=== PATIENT | male | born 1935 | race Caucasian/White ===

== ENCOUNTER → 2024-01-02 13:18 | Outpatient (REF) | payer OTHER, SELFPAY | LOC: HWRAD 13:18 | PROVIDERS: ATTENDING PHYSICIAN Nurse Practitioner Family; FAMILY PHYSICIAN Internal Medicine | DX: R06.02 Shortness of breath (principal); J90 Pleural effusion, not elsewhere classified | CPT/HCPCS: 71046 ==

== ENCOUNTER 2024-06-28 19:30 | Inpatient (IN) | payer OTHER, SELFPAY ==
[2024-06-28] VITALS (9 sets, daily range): BP systolic 120–149; BP diastolic 64–97; BMI 23.2
--- NOTE | 2024-06-28 17:06 | ED.GENMED ---
History of Present Illness
General
Chief Complaint: Breathing Problem
Source: patient
Exam Limitations: none
Time Seen by Provider: 06/28/24 16:52
Nursing documentation reviewed up to this point in time: agreed with
History of Present Illness
History of Present Illness:
Patient presents to ED from [facility] secondary to increased work of breathing, especially during exertion over the past 2 weeks. Patient was evaluated by physician at his [facility]. Outpatient CT chest 2 weeks ago had revealed increased
fluid in his right lung. His cost control supervisor, Dr. Gutierrez, office is aware of the CT findings. However, he has not given any instructions on any future recommendations. Denies chest pain. Denies coughing. Denies fever or chills. Denies leg pain
or swelling. Denies recent change in medications or diet. Denies previous history of similar symptoms. Patient does report weight loss recently, with decreased appetite.
Past History
Past History
ED Past Medical History: Arrthythmia, HTN, NIDDM and Other (ckd)
ED Past Surgical History: Other (hernia)
Patient has exhibited threatening behavior?: No
PSI?: No
Social History
Tobacco: Non-smoker
Alcohol: None
Drug: None
Living: assisted living
Review of Systems
Review of Systems
Allergies reviewed?: Yes
All Other Systems: ROS reviewed and negative except as documented in HPI and ROS
Constitutional: Reports no symptoms; Denies fever
Respiratory: Reports trouble breathing; Denies cough
Cardiac: Reports no symptoms
ABD/GI: Reports no symptoms
Musculoskeletal: Reports no symptoms
Skin: Reports no symptoms
Neurological: Reports no symptoms
Phy Exam
Physical Exam
Physical Exam:
Physical Exam
General: no apparent distress, not acutely ill. afebrile
Head: nc/at. eomi
Neck: supple. no jvd.
Heart: s1/s2 regular rate and rhythm.
Lungs: no acute respiratory distress. diminished breath sound noted over right lower base
Abdomen: normal bowel sounds. not tender.
Neuro: alert and oriented x 3. no focal neurological deficits
Skin: no rash
Psychiatric: well kept. interactive and cooperative
Extremities: LE b/l, nonpitting edema. no calf tenderness.
Scores
Heart Failure Risk
Heart Failure Risk Score: Yes
History of Stroke or TIA: No
History of intubation for respiratory distress: No
Heart rate on ED arrival >/= 110: No
SaO2 <90% on arrival on room air: No
HR >/=110 during 3min walk test (or too ill to perform test): No
ECG has acute ischemic changes: No
Urea >/=12mmol/L (BUN 33.6mg/dL): No
Serum CO2>/=35mmol/L: Yes
Troponin I or T elevated to FL Level (0.4mg/dL): No
NT-proBNP >/=5,000ng/L (5,000pg/ml): Yes
HF Risk Score: 3
Admission Status: HIGH RISK 15.9% Consider SNF treatment or admission to hospital
Course
Orders/Labs/Results
Orders:
Orders
06/28/24 Dinner
Sodium, 2 Gram
At Your Request: Full Participation
06/28/24 16:48
Electrocardiogram (*1) Urgent
Reason for Study: Shortness of Breath
CR Chest - 2 Views Urgent
Comment:
Reason For Exam: sob
06/28/24 16:49
EKG- Treatment ONCE
06/28/24 17:01
Complete Blood Count/With Diff Urgent
Comprehensive Metabolic Panel Urgent
Ferritin Urgent
Comment: ADD ON
Folate Urgent
Comment: ADD ON
Iron Urgent
Comment: ADD ON
Magnesium Urgent
NT-proBNP Urgent
Total Iron Binding Urgent
Comment: ADD ON
Troponin I Urgent
Vitamin B12 Urgent
Comment: ADD
06/28/24 17:07
Add On- LAB Urgent
Comments:: in lab
Tests Added?: BNP
06/28/24 17:57
Furosemide [Lasix] 40 mg IV NOW STA
06/28/24 18:45
CT Abd/pel (oral only)-DH Only Routine
Comment:
Reason For Exam: RUQ abdominal pain, weight loss
Iohexol [Omnipaque] See Protocol PO NOW STA
06/28/24 18:46
Admit/Transfer Patient As Directed
Co-Sign Provider:
Level of Care: Inpatient admission
Assign to:: Telemetry
Physician / Group: Francisco J
Diagnosis: CHF, Pleural Effusion
Reason for Telemetry: Acute Heart Failure
Date to Stop Telemetry: 07/01/24
Time to Stop Telemetry: 11:00
Reason for Hospitalization: IV diuretics
Expected length of stay greater than two midnights?: Yes
ELOS- Estimated Length of Stay in days: 3
I certify the patient meets the requirements for IP care: Yes
PRN Pain Medication Management As Directed
May give lesser potent ordered pain med per pt: Yes
preference::
Protocol:: Medication orders for pain may be administered in a
manner that supports deferring to patient preference
when the pt is:
- Requesting an ordered lesser potent pain medication.
Least to most potent pain medications are defined
as: acetaminophen < NSAID < tramadol < opioids
(morphine, oxycodone, hydromorphone).
- Requesting a lesser dose of the same medication IF
ORDERED.
- Requesting a less intrusive route of administration
if both routes are prescribed by the provider (PO <
IV).
06/28/24 18:48
Code Status As Directed
Resuscitation Status: Do not resuscitate
Reached after discussion with pt or family/Healthcare POA: Yes
DNR Bracelet Application ONCE
06/28/24 20:36
Dextrose 50%-Water [Dextrose 50% Syringe] 12.5 grams IV [id number] PRN
Glucagon [GlucaGen] 1 mg IM PRN PRN
Temazepam [Restoril] 15 mg PO HS PRN
06/28/24 20:36
Echo 2D MMode Color/Doppler Routine
Reason for Study: heart failure
DIETARY IP CONSULT Routine
Reason for Consult: weight loss
HF DIETARY CONSULT Routine
HF EDUCATOR CONSULT Routine
Comment:
Activity As Directed
Activity Level: Out of Bed-Early Mobility
Bedside Glucose Monitoring As Directed
Frequency: AC&HS
Additional Instructions:: Change to q6h if pt on TPN, tube feeding or not eating
Intake/ Output As Directed
Frequency: Per unit guidelines
Patient Education As Directed
Type: CHF folder
Comment: give on admission. Document in Interdisciplinary Education record
Sleep Apnea Assessment by RN As Directed
Comment:
Physician Instructions:
Vital Signs As Directed
Frequency: Other
Additional Instructions:: Q12 or per unit guidelines if more frequent.
Weight As Directed
Frequency: Daily
Type of Scale: Standing Scale
Comment: Daily morning weight. If unable to stand, use balanced bed scale.
Weight As Directed
Frequency: Once
Type of Scale: Standing Scale
Comment: Upon Admission. If unable to stand, use balanced bed scale.
O2 Therapy [RESP] Routine
Titrate/Wean O2 to maintain O2 sat greater than (%): 92
Pulse Ox/cont/shift [RESP] Routine
Quantity: 1
Special Instructions: Daily pulse oximetry at rest. If greater than 92% at rest also obtain pulse oximetry
while ambulating as tolerated.
06/28/24 22:00
Apixaban [Eliquis] 2.5 mg PO BID
Buspirone [Buspar] 7.5 mg PO BID
CeFAZolin 2 GRAM [Ancef] 2 grams in 10 ml IV Q12H
06/28/24 22:33
Troponin I Q6H
Comment: at admission & every 6 hours x 2 (3 total), ECG to be done with each level
06/29/24 02:28
Basic Metabolic Panel IN AM
Complete Blood Count/No Diff IN AM
Glycohemoglobin (HgbA1c) IN AM
Magnesium IN AM
TSH Reflex To Free T4 IN AM
Troponin I Q6H
Comment: at admission & every 6 hours x 2 (3 total), ECG to be done with each level
06/29/24 07:30
Insulin Aspart Corrective Low [Novolog Flexpen-Low Resistance] See Protocol SC AC
06/29/24 08:00
Atorvastatin [Lipitor] 20 mg PO DAILY
Escitalopram Oxalate [Lexapro] 20 mg PO DAILY
Ferrous Sulfate [Feosol] 325 mg PO DAILY
Furosemide [Lasix] 40 mg IV BID AT 0800,1600
Pantoprazole [Protonix] 40 mg PO DAILY
Tamsulosin [Flomax] 0.4 mg PO DAILY
06/30/24 06:00
Basic Metabolic Panel IN AM
06/30/24 08:00
Azithromycin [Zithromax] 500 mg PO MoWeFr@0800
Ethambutol [Myambutol] 1,200 mg PO MoWeFr@0800
07/01/24 06:00
Basic Metabolic Panel IN AM
07/01/24 11:00
DC Protocol for Telemetry ONCE
Abnormal Lab Results
06/28/24
17:01
RBC 3.07 L 10^6/uL
(4.70-6.10)
Hgb 8.8 L g/dL
(13.0-18.0)
Hct 26.5 L %
(39.0-52.0)
RDW 19.9 H %
(11.5-14.5)
MPV 11.8 H fL
(7.4-10.4)
Absolute Lymphs (auto) 0.6 L 10^3/uL
(1.2-3.4)
Neutrophils % 77.7 H %
(42.2-75.2)
Lymphocytes % 10.0 L %
(20.5-51.1)
Carbon Dioxide 32 H mmol/L
(22-30)
BUN 113 H* mg/dl
(9-20)
Creatinine 2.7 H mg/dL
(0.7-1.3)
Magnesium 2.4 H mg/dl
(1.6-2.3)
TIBC 230 L ug/dl
(261-462)
Troponin I 0.077 H* ng/ml
Total Protein 5.9 L g/dl
(6.3-8.2)
Vitamin B12 > 1000 H pg/ml
(239-931)
Folate > 20.0 H ng/ml
(2.76-20)
06/28/24 17:01
06/28/24 17:01
Vital Signs
Initial and Last Documented VS:
Initial Vital Signs
BP
126/64
06/28/24 16:44
Last Documented Vital Signs
Temp Pulse Resp BP Pulse Ox
98.1 F 86 20 111/72 97
06/29/24 20:00 06/29/24 20:00 06/29/24 15:24 06/29/24 19:55 06/29/24 15:24
MDM/Problems Addressed
MDM/Problems Addressed:
Shortly after ambulation in ED, patient noted to become hypoxic (86% on room air). Pt's hypoxia and increased work of breathing, likely secondary to worsening right pleural effusion with fluid overload. As such, patient be admitted for IV
diuresis. Patient may benefit from thoracentesis.
*EKG
Interpreted by ED Provider?: Yes
EKG Intrepretation Date: 06/28/24
Heart Rate: 78
Rate: normal
Rhythm: junctional and PVC's
[place]: left axis deviation
*Critical Care Note
Total Time (30-74mins, 75-104mins- exclusive of procedures): Not Applicable
ED Attending Note
-
Portions of this chart may have been created with voice recognition software.� Occasional wrong word or��sound alike� substitutions may have occurred due to the inherent limitations of voice recognition software.
Discharge Plan
Departure
Patient Disposition: Admit
Date of Disposition: 06/28/24
Time of Disposition: 17:58
Admit to: Telemetry
Presentation/result/management discussed w/ accepting MD/DO: Hospitalist
Discharge Problem:
Hypoxia, Pleural effusion
Interventions
Interventions:
*Risk Screen - Suicide Last Done: 06/28/24 16:50
*General Assessment Last Done: 06/28/24 16:50
*Neglect/Abuse Screening Last Done: 06/28/24 16:50
*ED- Fall Risk Assessment Last Done: 06/28/24 16:50
*ED COVID-19 Vaccine History Last Done: 06/28/24 16:50
*Nursing Disposition Last Done: 06/28/24 20:43
ED- Cardiac Assessment Last Done: 06/28/24 16:58
ED- Pulmonary Assessment Last Done: 06/28/24 16:58
Discharge Date and Time
Discharge Date/Time: 06/28/24 20:44
[2024-06-28 17:21] LABS: % Basophils 0.7 % (0-2); % Eosinophils 4.9 % (0-6); % Immature Granulocytes 0.3 % (0-0.5); % Monocytes 6.4 % (1.7-9.3); % Neutrophils 77.7 % (42.2-75.2); Absolute Eosinophils 0.3 10^3/uL (0-0.7); Absolute Lymphocytes 0.6 10^3/uL (1.2-3.4); Absolute Monocytes 0.4 10^3/uL (0.1-0.6); Absolute Neutrophils 4.6 10^3/uL (1.4-6.5); Hematocrit 26.5 % (39.0-52.0); Hemoglobin 8.8 g/dL (13.0-18.0); Mean Corp Hgb Conc. 33.2 g/dL (33.0-37.0); Mean Corpuscular Hgb 28.7 pg (27.0-31.0); Mean Corpuscular Volume 86.3 fL (80.0-94.0); Mean Platelet Volume 11.8 fL (7.4-10.4); Nucleated Red Blood Cells % 0 % (-); Platelet Count 174 10^3/uL (130-400); Red Blood Cell Count 3.07 10^6/uL (4.70-6.10); Red Cell Dist. Width 19.9 % (11.5-14.5); White Blood Cell Count 5.9 10^3/uL (4.8-10.8)
[2024-06-28 17:42] LABS: ALT (SGPT) 37 U/L (0-50); AST (SGOT) 29 U/L (17-59); Albumin 3.5 g/dl (3.5-5.0); Alkaline Phosphatase 123 U/L (38-126); Blood Urea Nitrogen 113 mg/dl (9-20); Calcium 9.3 mg/dl (8.4-10.2); Carbon Dioxide 32 mmol/L (22-30); Chloride 101 mmol/L (98-107); Estimated Creatinine Clearance 18 ml/min; Glucose 81 mg/dl (70-99); Magnesium 2.4 mg/dl (1.6-2.3); Potassium 3.8 mmol/L (3.5-5.1); Sodium 140 mmol/L (135-145); Total Bilirubin 1.2 mg/dl (0.2-1.3); Total Protein 5.9 g/dl (6.3-8.2); eGFR 21.98
[2024-06-28 17:51] LABS: NT-proBNP 24200 pg/ml; Troponin I 0.077 ng/ml
--- NOTE | 2024-06-28 18:05 | HPS.HSE ---
Addendum entered and electronically signed by Irish Balderas PA-C 06/28/24 19:55:
Additional Assessment / Plan
Left Lower Extremity Cellulitis
-Continue Ancef
Anemia of Chronic Disease
-Monitor Hgb
-Check iron studies, vitamin b12 and folate level
Original Note:
Family Physician
-
Family Physician: INTERVIEWE UNKNOWN - PT NOT
Chief Complaint
-
Increasing shortness of breath and lower extremity edema
History of Present Illness
Patient is an 88 y/o male past medical history of A-fib, CHF, DM, CKD, COPD and JOANNE who presents with shortness of breath. Patient reports increasing shortness of breath over the past few months. He had a Chest CT at an outside facility last week
which revealed a right pleural effusion. Patient also reports significant lower extremity edema. Despite the worsening edema he has actually lost weight over the several months. He reports very poor appetite and state he mostly consuming protein
drinks. He denies any chest pain or palpitations. He denies vomiting, diarrhea or abdominal pain. He denies fevers, sweats or chills.
Medical History
Past Medical History
Past Medical History: Reports Other
Additional Past Medical History:
Permanent Atrial Fibrillation
Chronic HFpEF
Essential Hypertension
Hyperlipidemia
Diabetes Mellitus,
CKD Stage IIIB
Emphysema / COPD
JOANNE
Anxiety / Depression
GERD
BPH
Past Surgical History: Reports Other
Additional Past Surgical History:
Hernia Repair
Social History
Tobacco: Former Smoker
Alcohol: None
Personal: Single
Living: Other (Independent Apartment at [facility])
Employment: Retired
Family History
Family History: Not pertinent
Allergies / Home Medications
Allergies reflects when Allergies were last updated in [employer].
Home Medications with original date entered in [employer]
Allergy/Medication List:
Allergies
Allergy/AdvReac Type Severity Reaction Status Date / Time
No Known Allergies Allergy Verified 09/09/22 13:17
Home Medications
apixaban 2.5 mg tablet (Eliquis) 2.5 mg PO BID Blood clot prevention/tx 04/23/22
atorvastatin 20 mg tablet 20 mg PO DAILY High cholesterol 04/23/22
buspirone 7.5 mg tablet 7.5 mg PO BID Mental Health/Anxiety 04/23/22
omeprazole 20 mg capsule,delayed release 20 mg PO DAILY Gastrointestinal issue 04/23/22
temazepam 15 mg capsule 15 mg PO HS PRN sleep 04/23/22
escitalopram oxalate 20 mg tablet 20 mg PO DAILY 04/24/22
azithromycin 500 mg tablet 500 mg PO MOWEFR 06/28/24
ethambutol 400 mg tablet 1,200 mg PO MOWEFR 06/28/24
ferrous sulfate 325 mg (65 mg iron) tablet (iron) 325 mg PO DAILY 06/28/24
fluticasone propionate 50 mcg/actuation nasal spray,suspension 2 spray intranasal DAILY 06/28/24
furosemide 40 mg tablet (Lasix) 40 mg PO QPM 06/28/24
furosemide 40 mg tablet (Lasix) 60 mg PO DAILY 06/28/24
glipizide 5 mg tablet 5 mg PO DAILY 06/28/24
lisinopril 20 mg tablet 20 mg PO DAILY 06/28/24
tamsulosin 0.4 mg capsule 0.4 mg PO DAILY 06/28/24
Review of Systems
-
A 12 point ROS was completed and negative except as noted: Yes
Constitutional: Reports Weight Loss
Respiratory: Reports Trouble Breathing; Denies Cough
Cardiac: Denies Chest Pain or Palpitations
Abdomen/GI: Denies Abdominal Pain, Vomiting, Diarrhea, Bloody Stools or Black Stools
Physical Exam
Vital Signs
Vital Signs
Temp Pulse Resp BP Pulse Ox
97.4 F 93 35 120/64 96
06/28/24 16:50 06/28/24 17:45 06/28/24 17:45 06/28/24 17:00 06/28/24 17:45
Physical Exam
General: Comfortable, Conversant and Cachectic
HEENT: Anicteric and Moist mucous membranes
Respiratory: Other (Absent breath sound right base)
Cardiac: S1/S2 and Irregular Rhythm; No Tachycardia
GI: Soft and Tender (Right upper quadrant with some guarding noted)
Rectal: Deferred by Provider
Musculoskeletal: No Clubbing, No Cyanosis and Other (+4 pitting edema bilateral lower extremity)
Skin: Other (Noted burst blister superior to left ankle; Increased erythema and warmth to touch LLE)
Neuro: Awake, Alert, Oriented and Nonfocal/grossly intact
Psych: Calm
Laboratory Results
-
06/28/24 17:01
06/28/24 17:01
Laboratory Results
Total Bilirubin 1.2 mg/dl (0.2-1.3) 06/28/24 17:01
AST 29 U/L (17-59) 06/28/24 17:01
ALT 37 U/L (0-50) 06/28/24 17:01
Alkaline Phosphatase 123 U/L (38-126) 06/28/24 17:01
Troponin I 0.077 ng/ml H* 06/28/24 17:01
Data Reviewed
-
Diagnostic Radiology: Report Reviewed by me
Lab Data: Labs Reviewed by me
Impression/Plan
-
Acute on Chronic HFpEF
-Consult Cardiology
-Continue Lasix 40mg IV BID
-Check Echo
-Consider IR consult for thoracentesis on Sunday
-Monitor Is&Os and Daily Weights
Weight Loss with Protein Calorie Malnutrition
-Consult Dietary
Right Upper Quadrant Abdominal Tenderness
-Check Abd/Pelvis CT
Permanent Atrial Fibrillation
-Continue Eliquis for anticoagulation
Essential Hypertension
-Hold Lisinopril
Hyperlipidemia
-Continue atorvastatin
Diabetes Mellitus, Type II
-Hold Glipizide
-Check HgbA1c
-Monitor sugar and continue coverage insulin
CKD Stage IIIB
-Creatinine slightly above baseline with significantly elevated BUN
-Monitor closely while on diuretics
Emphysema / COPD
-Patient does not appear to be on any inhalers as outpatient
JOANNE
-Continue azithromycin and ethambutol
Anxiety / Depression
-Continue escitalopram and temazepam
GERD
-Continue Protonix
BPH
-Continue Flomax
DVT proph: Eliquis
Code Status: DNR
[2024-06-28] MEDS: LASIX 40 MG IV (18:39)
--- NOTE | 2024-06-28 19:19 | W.PN.UPDATE ---
Update Note
Progress Note Update
This is an addendum to the H&P written by Irish Beauchamp on 06/28/2024.� Patient seen and examined independently with PA.
88-year-old male past medical history of chronic HFrEF, atrial fibrillation on Eliquis, hypertension, COPD, anemia of chronic disease, CKD 3B, anxiety/depression, type 2 diabetes, GERD, hyperlipidemia, presenting with increased work of breathing
with exertion.� Also with right upper quadrant abdominal pain.
Vital signs normal.
Labs show severely elevated BUN of 113, relatively stable creatinine of 2.7 hemoglobin relatively stable at 8.8 from 9.7 previously.
Chest x-ray shows emphysematous, chronic fibrotic changes, moderate right pleural effusion likely increased, pulmonary vascularity top normal cannot exclude mild CHF.
Patient with exertional dyspnea secondary to acute CHF exacerbation with increasing moderate pleural effusion likely resulting in elevated BUN.� IV Lasix, cardiology consulted. May need thoracentesis.�
Cefazolin for edema blistering with cellulitis of left lower extremity.
Check CT scan of abdomen pelvis due to abdominal pain.
[2024-06-28] MEDS: OMNIPAQUE 50 ML PO (19:26)
--- NOTE | 2024-06-28 21:12 | PTCARENOTE ---
ax3 ambulated to bed w ass of one- . afib with pvc's - roa/katey orthopneic. 98% on room air. lungs diminished on rt. uses urinal- drank ct contrast- awaiting ct. b/l legs red warm plus 1 with open blister on left leg. dressed with silicone border foam
[2024-06-28 21:33] LABS: Glucose - Point of Care 72 mg/dl (70-99)
[2024-06-28 21:50] LABS: Iron 66 ug/dl (49-181); Percent Saturation 28 % (20-50); Total Iron Binding Capacity 230 ug/dl (261-462)
[2024-06-28 22:28] LABS: Folate > 20.0 ng/ml (2.76-20); Vitamin B12 > 1000 pg/ml (239-931)
[2024-06-28] MEDS: FLUSH (NSS) 1 FLUSH IV (22:34)
[2024-06-28] MEDS: ANCEF 10 IV (22:34)
[2024-06-28] MEDS: BUSPAR 7.5 MG PO (22:35)
[2024-06-28] MEDS: RESTORIL 15 MG PO (22:35)
[2024-06-28] MEDS: ELIQUIS 2.5 MG PO (22:35)
[2024-06-28 23:45] LABS: Troponin I 0.078 ng/ml
[2024-06-29] VITALS (10 sets, daily range): BP systolic 111–138; BP diastolic 72–81; BMI 22.6
[2024-06-29 00:46] LABS: Glucose - Point of Care 80 mg/dl (70-99)
--- NOTE | 2024-06-29 02:41 | PTCARENOTE ---
2 runs wide complex tachycardia 150 beats a minute reported to physical therapy resident- labs drawn ekg done. vitals wnl pt asymptomatic
[2024-06-29 02:42] LABS: Hematocrit 27.6 % (39.0-52.0); Hemoglobin 9.2 g/dL (13.0-18.0); Mean Corp Hgb Conc. 33.3 g/dL (33.0-37.0); Mean Corpuscular Hgb 28.5 pg (27.0-31.0); Mean Corpuscular Volume 85.4 fL (80.0-94.0); Mean Platelet Volume 11.7 fL (7.4-10.4); Platelet Count 176 10^3/uL (130-400); Red Blood Cell Count 3.23 10^6/uL (4.70-6.10); Red Cell Dist. Width 19.9 % (11.5-14.5); White Blood Cell Count 6.3 10^3/uL (4.8-10.8)
[2024-06-29 03:22] LABS: Blood Urea Nitrogen 108 mg/dl (9-20); Calcium 9.4 mg/dl (8.4-10.2); Carbon Dioxide 29 mmol/L (22-30); Chloride 102 mmol/L (98-107); Estimated Creatinine Clearance 18 ml/min; Glucose 60 mg/dl (70-99); Magnesium 2.4 mg/dl (1.6-2.3); Potassium 3.6 mmol/L (3.5-5.1); Sodium 140 mmol/L (135-145); Troponin I 0.085 ng/ml
[2024-06-29 03:35] LABS: TSH Reflex To Free T4 1.18 uIU/ml (0.47-4.68)
[2024-06-29 04:48] LABS: Glucose - Point of Care 89 mg/dl (70-99)
--- NOTE | 2024-06-29 04:48 | PTCARENOTE ---
Addendum entered by Mack Rios RN 06/29/24 06:33:
2 hour repeat glucose was 85
Original Note:
am gluose on lab draw was 60- 4 oz apple juice given repeat was 89
[2024-06-29 06:16] LABS: Glucose - Point of Care 85 mg/dl (70-99)
[2024-06-29 08:17] LABS: Glucose - Point of Care 92 mg/dl (70-99)
[2024-06-29] MEDS: NOVOLOG FLEXPEN-LOW RESISTANCE SC ×3 (08:22→16:54)
[2024-06-29] MEDS: BUSPAR 7.5 MG PO ×2 (09:01→22:24)
[2024-06-29] MEDS: PROTONIX 40 MG PO (09:01)
[2024-06-29] MEDS: FLOMAX 0.4 MG PO (09:02)
[2024-06-29] MEDS: FEOSOL 325 MG PO (09:02)
[2024-06-29] MEDS: ELIQUIS 2.5 MG PO (09:02)
[2024-06-29] MEDS: LIPITOR 20 MG PO (09:02)
[2024-06-29] MEDS: LASIX 40 MG IV ×2 (09:02→15:28)
[2024-06-29] MEDS: ANCEF 10 IV ×2 (09:04→22:24)
[2024-06-29] MEDS: LEXAPRO 20 MG PO (09:04)
[2024-06-29 09:15] LABS: Troponin I 0.084 ng/ml
--- NOTE | 2024-06-29 09:32 | W.PN.HOSP.TC ---
Addendum entered and electronically signed by Yon Madden MD 06/29/24 11:03:
text from cardiology, request nephrology consult. Will place
Original Note:
Today's Communication/Plan
-
Cardio and pulm consults
continue Ancef
Assessment / Plan
Assessment / Plan
Acute on Chronic HFpEF
-Consult Cardiology
-Continue Lasix 40mg IV BID
-Check Echo on Sunday
-Consider IR consult for thoracentesis on Sunday
-Monitor Is&Os and Daily Weights
Respiratory Distress
component of CHF/ILD/Pleural Effusion
will request pulm input
Left lower ext cellulitis
continue Ancef for now
Weight Loss with Protein Calorie Malnutrition
-Consult Dietary
Right Upper Quadrant Abdominal Tenderness
- Abd/Pelvis CT: Limited by lack of intravenous contrast.
Slightly increased moderate to large right pleural effusion and new trace left pleural effusion.
17 mm rounded soft tissue attenuation in the region of the distal common bile duct. The common bile duct is distended, measuring 14 mm. Tiny focus of pneumobilia in the left lobe, which is much less than that seen on the prior study from November
2022. Findings suspicious for obstructing mass or noncalcified choledocholithiasis.
Cholelithiasis with mild hydropic gallbladder. No definitive CT evidence to suggest acute cholecystitis.
No obstructive uropathy. Renal cysts. Slightly hyperdense heterogeneous 2.2 cm mass projecting from the lower pole of the left kidney. Few tiny calcifications. Benign or malignant. Follow-up imaging may be considered for further evaluation if
indicated. This was not specifically mentioned in the original preliminary report.
Diverticulosis. No definitive evidence to suggest acute diverticulitis.
Third spacing.
Permanent Atrial Fibrillation
-Continue Eliquis for anticoagulation
Soft tissue mass possible seen in above CT scan. Consider GI consult for possible ERCP/MRCP once pulmonary and cardiac aspects resolved/stabilized
Essential Hypertension
-Hold Lisinopril
Hyperlipidemia
-Continue atorvastatin
Diabetes Mellitus, Type II
-Hold Glipizide
-Check HgbA1c pending
-Monitor sugar and continue coverage insulin
CKD Stage IIIB
-Creatinine slightly above baseline with significantly elevated BUN
-Monitor closely while on diuretics
BUN/Creat 108/2.6. Use of IV Lasix for CHF cautiously in pt with prerenal azotemia based on BUN to Creat ratio. Consider nephro consult as per cardio input.
Emphysema / COPD
-Patient does not appear to be on any inhalers as outpatient
JOANNE
-Continue azithromycin and ethambutol
Anxiety / Depression
-Continue escitalopram and temazepam
GERD
-Continue Protonix
BPH
-Continue Flomax
DVT proph: Eliquis
Code Status: DNR
complex patient
Pt was suppose to go to tele, went to IVU as overflow, will change location status to IVU
Anticipated Discharge: > 48 hours
Subjective/Interval History
-
Date of Service: June 29, 2024
continues to complain of shortness of breath
Objective Data
-
Labs:
Laboratory Results
06/29/24
02:28
WBC 6.3
Hgb 9.2 L
Hct 27.6 L
Plt Count 176
Sodium 140
Potassium 3.6
Chloride 102
Carbon Dioxide 29
BUN 108 H*
Creatinine 2.6 H
Glucose 60 L
Calcium 9.4
Vital Signs:
Vital Signs
Temp Pulse Resp BP Pulse Ox
97.7 F 90 20 123/73 92
06/29/24 07:25 06/29/24 07:25 06/29/24 07:25 06/29/24 07:25 06/29/24 07:25
I&O
06/28/24 06/29/2406/30/25
06:59 06:59 06:59
Intake Total 240 / 240
Output Total 800 / 800
Balance -560 / -560
Review of Systems
-
History Source: Patient and Coordinated Provider
Constitutional: Denies Fever
EENT: Reports No Symptoms Reported
Respiratory: Reports Trouble Breathing
Cardiac: Denies Chest Pain
Abdomen/GI: Reports No Symptoms
Physical Exam
-
General: Well Developed, Well Nourished, Respiratory Distress, Appears in Distress and Conversant
HEENT: Normocephalic, Atraumatic and Moist Mucous Membranes
Respiratory: Wheezes (end expiratory), Rales (bibasilar) and Decreased Breath Sounds (rt lower lung)
Cardiac: S1/S2, Irregular Rhythm and Murmur (2/6sem)
GI: Soft, Nontender and Nondistended
Musculoskeletal: No Clubbing, No Cyanosis, Edema, Right Lower Extrem (1+) and Edema, Left Lower Extrem (1+)
Skin: Rash (cellulitic changes left lower leg)
Neuro: Awake, Alert and Oriented
--- NOTE | 2024-06-29 09:40 | CON.CAR ---
Consultation
Consultation Request
Date/Time Consultation Requested: 06/29/24 9:30 AM
Date/Time Consultation Performed: 06/29/2024 9:45 AM
Requesting Provider: Dr. Madden
Performing Provider: Dr. Patricia Mack
Reason for Consultation: Shortness of breath/heart failure
Medical History
-
Chief Complaint: Shortness of breath
History of Present Illness:
He presented to the emergency department ED from assisted living at [facility] given shortness of breath with and without exertion. He tells me this has been going on for months but more noticeable over the past few weeks. He tells me he has
lost significant weight but he does not know how much. He tells me he feels predominantly terrible overall. He denies chest pain, palpitations and dizziness. He feels tired and weak. He has noted decline in activity level.
He follows with cardiology elsewhere.
He has noted to have minimal troponin elevation. Current proBNP is 24,200.
He has a chronic diagnosis of atrial fibrillation on oral anticoagulation (previously when seen during hospitalization 04/2022 he was on sotalol discontinued), moderate to severe right pleural effusion in the setting of underlying emphysema/COPD/JOANNE,
worsened renal function with BUN/creatinine 108/2.6. He has chronic anemia.
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 In addition to renal cyst there is also a posterior lobe left renal hyperdense mass. He is noted to have abdominal distention and discomfort.
He chronically is also treated for diabetes and hyperlipidemia along with hypertension.
According to prior pulmonary notes previously he had mild restrictive lung disease and mildly reduced diffusion capacity. He was continuing on JOANNE treatment with infectious disease. It appears he has missed recent appointments. According to last
office note 11/2023 he has had moderate right-sided pleural effusion for which his outpatient windmill mechanic has been intermittently increasing diuretic.
CT scan of the chest report performed elsewhere reviewed in outpatient medical record from 06/10/2024 revealed large right pleural effusion. Numerous bilateral clustered pulmonary nodules tree-in-bud. Emphysema. Bronchiectasis. Severe
atherosclerotic calcification
He follows with Dr. Crews of cardiology. He tells me 'he feels he is overdue for an appointment '.
Past Medical History
Past Medical History: Arrhythmias (Atrial fibrillation), CAD (Coronary calcification noted on CT scan severe), CHF (Heart failure preserved ejection fraction), COPD (Emphysema/JOANNE), HTN, Hypercholesterolemia, NIDDM, Renal Failure and Other (Weight
loss)
Past Surgical History: Other (Hernia repair)
Social History
Tobacco: Former Smoker
Living: Assisted Living
Family History
Family History: Reviewed & Not Pertinent
Allergies / Home Medications
Allergy/AdvReac Type Severity Reaction Status Date / Time
No Known Allergies Allergy Verified 09/09/22 13:17
�Medication �Instructions �Recorded �Confirmed �Type
apixaban 2.5 mg tablet (Eliquis) 2.5 mg PO BID Blood clot 04/23/22 06/28/24 History
prevention/tx
atorvastatin 20 mg tablet 20 mg PO DAILY High cholesterol 04/23/22 06/28/24 History
buspirone 7.5 mg tablet 7.5 mg PO BID Mental Health/Anxiety 04/23/22 06/28/24 History
omeprazole 20 mg capsule,delayed 20 mg PO DAILY Gastrointestinal 04/23/22 06/28/24 History
release issue
temazepam 15 mg capsule 15 mg PO HS PRN sleep 04/23/22 06/28/24 History
escitalopram oxalate 20 mg tablet 20 mg PO DAILY 04/24/22 06/28/24 History
azithromycin 500 mg tablet 500 mg PO MOWEFR 06/28/24 06/28/24 History
ethambutol 400 mg tablet 1,200 mg PO MOWEFR 06/28/24 06/28/24 History
ferrous sulfate 325 mg (65 mg 325 mg PO DAILY 06/28/24 06/28/24 History
iron) tablet (iron)
fluticasone propionate 50 2 spray intranasal DAILY 06/28/24 06/28/24 History
mcg/actuation nasal
spray,suspension
furosemide 40 mg tablet (Lasix) 40 mg PO QPM 06/28/24 06/28/24 History
furosemide 40 mg tablet (Lasix) 60 mg PO DAILY 06/28/24 06/28/24 History
glipizide 5 mg tablet 5 mg PO DAILY 06/28/24 06/28/24 History
lisinopril 20 mg tablet 20 mg PO DAILY 06/28/24 06/28/24 History
tamsulosin 0.4 mg capsule 0.4 mg PO DAILY 06/28/24 06/28/24 History
Review of Systems
-
All other systems: Negative unless noted
Constitutional: Weight Loss and Fatigue
Respiratory: Trouble Breathing
Physical Exam
Vital Signs
Temp Pulse Resp BP Pulse Ox
97.7 F 90 20 123/73 92
06/29/24 07:25 06/29/24 07:25 06/29/24 07:25 06/29/24 07:25 06/29/24 07:25
Lab Results
06/29/24 02:28
06/29/24 02:28
Troponin I 0.084 ng/ml H* 06/29/24 08:42
Xdk-K-Mpehhjyxppd Pept 11835 pg/ml 06/28/24 17:01
General: Frail man short of breath
Neck: JVD to the mandible
Heart: Distant heart sounds irregular
Lungs: Decreased breath sounds at the base right greater than left
Abdomen: Distended and tender
Extremities: No clubbing, cyanosis, +1-2 edema bilaterally.
Neuro: Grossly nonfocal, awake, alert
Impression / Plan
-
Cardiology: Dr. Crews
Impression:
Acute on chronic heart failure with previously preserved ejection fraction
Pleural effusion present previously and currently, moderate to large
Non-[place] troponin elevation
Atrial fibrillation likely persistent/longstanding chronic on oral anticoagulation
Mitral regurgitation
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
Severe coronary atherosclerosis by CT scan as outpatient 05/2024
COPD/emphysema/bronchiectasis/JOANNE
Chronic kidney disease
New mass detected chronic bile duct-abdominal discomfort
Lower left renal hyperdense mass
Hypertension
Hyperlipidemia
Diabetes mellitus
Subjective weight loss
Echo 04/24/2022: Left ventricular ejection fraction 50%. Normal RV. Moderate MR. Mild AI. Mild to moderate TR. PA pressure 48 mmHg.
Plan:
He is complicated and he presents feeling very poorly with shortness of breath and symptoms/exam and testing consistent with heart failure previously with normal left ventricular ejection fraction. He has known atrial fibrillation which we believe
currently has been persistent/chronic and he is on oral anticoagulation. He also has significant abdominal discomfort for which he underwent CT scan with a new mass detected chronic bile duct and kidney. He has minimal troponin elevation which is
already started to decrease and more likely secondary to non-[place] troponin elevation given degree of illness. He in addition has chronic renal dysfunction followed by nephrology with worsening BUN noted. COPD/emphysema/bronchiectasis/JOANNE followed by
pulmonary (Dr. Gutierrez). He tells me he feels terrible. Oxygenation is stable.
Obtain records from primary blacking machine operator
Heart failure preserved ejection fraction with decompensation acute on chronic. proBNP 24,200.
Continued moderate to large pleural effusion.
Continue diuresis with Lasix
Significant renal dysfunction noted may be beneficial to have nephrology evaluate
Continue oxygen
SGLT2 contraindicated at this time given renal function
Follow input/output and daily weights
Etiology is likely multifactorial
Check echo
Would have patient undergo thoracentesis with labs, cultures and cytology. Have discussed with primary service.
Coronary artery disease with coronary calcification seen on CT scan as outpatient 05/2024. With Non-[place] troponin elevation (peak 0.085) may be in part related to heart failure or renal dysfunction or both.
Telemetry stable. EKG is not acute, all EKGs independently reviewed by me. Follow-up. No chest pain noted. Follow-up.
Troponins downtrending
Has been on oral anticoagulation currently on heparin given possibility of invasive procedures.
Risk factor modification. Check lipids has been on lipid-lowering.
Atrial fibrillation with history of prior bradycardia while on both sotalol and metoprolol. Sotalol has since been discontinued and I believe he has permanent A-fib at this time.
Atrial fibrillation with heart rates predominantly in the 90s. No symptoms.
Continue anticoagulation last dose of Eliquis 9 AM 06/29/2024. Will start heparin this afternoon in case invasive procedures needed.
Rate control
Follow telemetry which was independently reviewed by me.
Mitral regurgitation
Last available echo 2022 moderate. Reassess.
Bile duct mass and abdominal discomfort with subjective weight loss
Defer to primary service/GI
Renal mass
Defer to primary service
COPD/emphysema/JOANNE/bronchiectasis
Known to pulmonary and infectious disease
Diabetes
Defer to primary service
Hyperlipidemia
Assess lipids
Hypertension
Blood pressure stable
I have communicated with primary service my thoughts on the case through secure texting. Plan for consultants evaluation noted. Continue diuresis.
Data Reviewed
-
EKG: Tracing Personally Visualized and interpreted and Report Reviewed by me
Radiology: Image Personally Visualized and interpreted and Report Reviewed by me
CT Scan: Report Reviewed by me
Labs: Labs Reviewed by me
Old Records: Requested and Reviewed
[2024-06-29 10:52] LABS: Glycohemoglobin (HgbA1c) 6.9 % (4.0-5.6)
--- NOTE | 2024-06-29 12:15 | W.CON.NEPH ---
Consultation
-
Date/Time Consultation Requested: June 29, 2024 at 11 AM
Date/Time Consultation Performed: June 29, 2024 at 12 PM
Requesting Provider: Dr. Madden
Performing Provider: Dr. Holcomb
Reason for Consultation: Acute on chronic kidney disease
Medical History
-
Chief Complaint: Acute on chronic kidney disease
History of Present Illness:
88 y/o male past medical history of A-fib, CHF, DM, CKD, COPD and JOANNE who presents with shortness of breath. Patient reports increasing shortness of breath over the past few months. He had a Chest CT at an outside facility last week which revealed
a right pleural effusion. Patient also reports significant lower extremity edema
Renal consult for acute on chronic kidney disease baseline creatinine dating back to 2022 of 2.3
Admitting creatinine 2.9
Past Medical History
A-fib, CHF, DM, CKD, COPD and JOANNE
Social History
Tobacco: Former Smoker
Alcohol: None
Family History
Family History: Not Pertinent
Allergies / Home Medications
Allergy/AdvReac Type Severity Reaction Status Date / Time
No Known Allergies Allergy Verified 09/09/22 13:17
�Medication �Instructions �Recorded �Confirmed �Type
apixaban 2.5 mg tablet (Eliquis) 2.5 mg PO BID Blood clot 04/23/22 06/28/24 History
prevention/tx
atorvastatin 20 mg tablet 20 mg PO DAILY High cholesterol 04/23/22 06/28/24 History
buspirone 7.5 mg tablet 7.5 mg PO BID Mental Health/Anxiety 04/23/22 06/28/24 History
omeprazole 20 mg capsule,delayed 20 mg PO DAILY Gastrointestinal 04/23/22 06/28/24 History
release issue
temazepam 15 mg capsule 15 mg PO HS PRN sleep 04/23/22 06/28/24 History
escitalopram oxalate 20 mg tablet 20 mg PO DAILY 04/24/22 06/28/24 History
azithromycin 500 mg tablet 500 mg PO MOWEFR 06/28/24 06/28/24 History
ethambutol 400 mg tablet 1,200 mg PO MOWEFR 06/28/24 06/28/24 History
ferrous sulfate 325 mg (65 mg 325 mg PO DAILY 06/28/24 06/28/24 History
iron) tablet (iron)
fluticasone propionate 50 2 spray intranasal DAILY 06/28/24 06/28/24 History
mcg/actuation nasal
spray,suspension
furosemide 40 mg tablet (Lasix) 40 mg PO QPM 06/28/24 06/28/24 History
furosemide 40 mg tablet (Lasix) 60 mg PO DAILY 06/28/24 06/28/24 History
glipizide 5 mg tablet 5 mg PO DAILY 06/28/24 06/28/24 History
lisinopril 20 mg tablet 20 mg PO DAILY 06/28/24 06/28/24 History
tamsulosin 0.4 mg capsule 0.4 mg PO DAILY 06/28/24 06/28/24 History
Review of Systems
-
Mild shortness of breath, lower extremity edema, no chest pain
All other systems: Negative unless noted
Physical Exam
Vital Signs
Vital Signs
Temp Pulse Resp BP Pulse Ox
97.9 F 98 20 138/72 96
06/29/24 11:30 06/29/24 11:30 06/29/24 11:30 06/29/24 11:30 06/29/24 11:30
Lab Results
WBC 6.3 10^3/uL (4.8-10.8) 06/29/24 02:28
RBC 3.23 10^6/uL (4.70-6.10) L 06/29/24 02:28
Hgb 9.2 g/dL (13.0-18.0) L 06/29/24 02:28
Hct 27.6 % (39.0-52.0) L 06/29/24 02:28
Plt Count 176 10^3/uL (130-400) 06/29/24 02:28
Sodium 140 mmol/L (135-145) 06/29/24 02:
Potassium 3.6 mmol/L (3.5-5.1) 06/29/24 02:
Chloride 102 mmol/L (98-107) 06/29/24 02:
Carbon Dioxide 29 mmol/L (22-30) 06/29/24 02:
BUN 108 mg/dl (9-20) H* 06/29/24 02:
Creatinine 2.6 mg/dL (0.7-1.3) H 06/29/24 02:
eGFR 23.00 06/29/24 02:
Glucose 60 mg/dl (70-99) L 06/29/24 02:
Calcium 9.4 mg/dl (8.4-10.2) 06/29/24 02:
Zom-U-Dxwcgdmkmer Pept 52533 pg/ml 06/28/24 17:01
Albumin 3.5 g/dl (3.5-5.0) 06/28/24 17:01
Physical Exam
General no acute distress
HEENT no cephalic atraumatic extraocular muscle intact no scleral icterus no JVD neck supple
lungs decreased breath sounds on the right with rales on the left no wheezes
heart regular S1-S2 positive
abdomen soft nontender positive bowel sounds
extremities +2 edema pulses present bilateral
Neurologically nonfocal alert and oriented x 3
Skin no lesions no abrasions no petechiae
Psych normal affect no bizarre behavior
Data Reviewed
-
Radiology: Image Personally Visualized and interpreted
CT Scan: Image Personally Visualized and interpreted
Assessment/Plan
-
88 y/o male past medical history of A-fib, CHF, DM, CKD, COPD and JOANNE who presents with shortness of breath. Patient reports increasing shortness of breath over the past few months. He had a Chest CT at an outside facility last week which revealed
a right pleural effusion. Patient also reports significant lower extre
Impression.
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 Creatinine 2.6 on admission with records showing creatinine of 2.3 in 2022
CHF with pleural effusion EF 50% as of 2022 record
Lower extremity edema anasarca
Hypertension
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
Plan.
Creatinine not far from baseline from 2022 patient unsure who his patient care coordinator is
Continue Lasix twice daily
Thoracentesis Sunday with repeat echocardiogram
May need to increase diuretic dose with his diminished GFR
Daily weight
Sodium restrict
Discussed with patient's medical nurse
[2024-06-29 12:28] LABS: Glucose - Point of Care 72 mg/dl (70-99)
--- NOTE | 2024-06-29 13:30 | CON.PUL ---
Consultation
Consultation Request
Date/Time Consultation Requested: 06/29/2024956
Date/Time Consultation Performed: 06/29/2024 - 1244
Requesting Provider: Dr. Madden
Performing Provider: Dr. Jensen
Reason for Consultation: Respiratory distress
Medical History
-
Chief Complaint: Worsening SOB
History of Present Illness:
88-year-old male with a past medical history of hypertension, mitral regurgitation, gastritis, anemia, DM type II, history of urinary retention requiring Ny catheter, A-fib on Eliquis, anxiety/depression, chronic HFrEF, CKD, BPH, pulmonary JOANNE,
bronchiectasis who presents from [facility] for worsening SOB. His SOB has been worsening for few weeks and patient is aware that he has a right-sided pleural effusion. He had a CT chest at an outside facility 1 week ago that
revealed this right-sided pleural effusion. He also has significant lower extremity edema. He has been losing weight over the last several months and has been missing appointments with ID for his JOANNE treatment. Denies fevers, sweats or chills.
Initial vitals showed he was afebrile to 97.4 �F, pulse rate 95, respiratory rate 28, BP 126/64 and saturating 95% on room air. Initial labs showed WBC 5.9, Hb 8.8, absolute eosinophil count 300, creatinine 2.7, BUN 113, troponin 0.077, and proBNP
24,200. CXR showed a moderate right-sided pleural effusion. He was admitted to the IVU and started on diuresis. Due to patient's SOB, pulmonary service now consulted for additional management/recommendations.
When I saw the patient, he was resting in bed in no acute distress. He says he feels better overall compared to when he first arrived to the hospital. On 2 L/min nasal cannula saturating 96%. He does not use any inhalers at home � previously on
Stiolto and it caused urinary retention and he ended up in the hospital, per the pt. He tells me that he did skip ethambutol for few weeks regarding his treatment of JOANNE. He follows with ID here at [facility].
Patient follows with us in the [facility] office with last visit on 12/24/2023 with FLORIDA Jones. At that time he reported moderate shortness of breath that occurs at rest and with activity, ongoing for about a year and slightly improved. At that
time, he was on treatment for JOANNE via infectious disease, Dr. Romo. A chest x-ray was ordered at that time due to history of right-sided pleural effusion. He was told to follow-up in 3 months. Most recent PFT on 12/24/2023 showed no evidence of
obstruction, mild restrictive lung disease, and a moderately reduced gas exchange capacity which improved to mild/moderate severity when accounting for alveolar volume involving gas exchange (DLCO: 41%; DLCO/VA: 61%).
PMHx: Hypertension, mitral regurgitation, gastritis, anemia, DM type II, history of urinary retention requiring Ny catheter, A-fib on Eliquis, anxiety/depression, chronic HFrEF, CKD, BPH, pulmonary JOANNE, bronchiectasis
PSHx: Hernia repair, cardioversion
Past Medical History
Past Medical History: Other (Above as per HPI)
Past Surgical History: Other (Above as per HPI)
Social History
Tobacco: Former Smoker (Quit smoking >30 years ago, with a 21-sfbe-sdmo history)
Alcohol: None
Drug: None
Personal: Single
Living: Other (Independent apartment at [facility])
Employment: Retired
Family History
Family History: CAD (Father) and Cancer (Brother: Prostate cancer)
Allergies / Home Medications
Allergies
Allergy/AdvReac Type Severity Reaction Status Date / Time
No Known Allergies Allergy Verified 09/09/22 13:17
Home Medications
�Medication �Instructions �Recorded �Confirmed �Last Taken �Type
apixaban 2.5 mg tablet (Eliquis) 2.5 mg PO BID Blood clot 04/23/22 06/28/24 05/15/22 History
prevention/tx
atorvastatin 20 mg tablet 20 mg PO DAILY High cholesterol 04/23/22 06/28/24 05/22/22 07:00 History
buspirone 7.5 mg tablet 7.5 mg PO BID Mental Health/Anxiety 04/23/22 06/28/24 05/22/22 07:00 History
omeprazole 20 mg capsule,delayed 20 mg PO DAILY Gastrointestinal 04/23/22 06/28/24 05/22/22 07:00 History
release issue
temazepam 15 mg capsule 15 mg PO HS PRN sleep 04/23/22 06/28/24 Unknown History
escitalopram oxalate 20 mg tablet 20 mg PO DAILY 04/24/22 06/28/24 05/22/22 07:00 History
azithromycin 500 mg tablet 500 mg PO MOWEFR 06/28/24 06/28/24 Unknown History
ethambutol 400 mg tablet 1,200 mg PO MOWEFR 06/28/24 06/28/24 Unknown History
ferrous sulfate 325 mg (65 mg 325 mg PO DAILY 06/28/24 06/28/24 Unknown History
iron) tablet (iron)
fluticasone propionate 50 2 spray intranasal DAILY 06/28/24 06/28/24 Unknown History
mcg/actuation nasal
spray,suspension
furosemide 40 mg tablet (Lasix) 40 mg PO QPM 06/28/24 06/28/24 Unknown History
furosemide 40 mg tablet (Lasix) 60 mg PO DAILY 06/28/24 06/28/24 Unknown History
glipizide 5 mg tablet 5 mg PO DAILY 06/28/24 06/28/24 Unknown History
lisinopril 20 mg tablet 20 mg PO DAILY 06/28/24 06/28/24 Unknown History
tamsulosin 0.4 mg capsule 0.4 mg PO DAILY 06/28/24 06/28/24 Unknown History
Review of Systems
-
History Source: Patient
All other systems: Negative unless noted
Vitals / Labs / Diagnostic Testing
Vital Signs
Temp Pulse Resp BP Pulse Ox
97.7 F 90 20 123/73 93
06/29/24 07:25 06/29/24 07:25 06/29/24 07:25 06/29/24 07:25 06/29/24 07:30
Lab Data
06/29/24 02:28
06/29/24 02:28
Diagnostic Testing:
Physical Exam
-
HEENT: Normocephalic and Anicteric
Cardiovascular: Irregular Rhythm (Irregularly irregular) and Peripheral Edema (+2 lower extremity pitting edema bilaterally)
Respiratory: Wheeze (negative), Rales (Bibasilar), Rhonchi (negative) and Non-Labored Respirations
GI: Soft, Non Distended and Non Tender
Neurology: Awake, Alert and Tremors (negative)
Skin: Warm and Dry
General: Respiratory Distress (negative), Comfortable, Fever (negative) and Chills (negative)
Assessment
-
Assessment: 88-year-old male with a past medical history of hypertension, mitral regurgitation, gastritis, anemia, DM type II, history of urinary retention requiring Ny catheter, A-fib on Eliquis, anxiety/depression, chronic HFrEF, CKD, BPH,
pulmonary JOANNE, bronchiectasis who presents from [facility] for worsening SOB. His SOB has been worsening for few weeks and patient is aware that he has a right-sided pleural effusion. He had a CT chest at an outside facility
1 week ago that revealed this right-sided pleural effusion. He also has significant lower extremity edema. He has been losing weight over the last several months and has been missing appointments with ID for his JOANNE treatment. Denies fevers,
sweats or chills. Initial vitals showed he was afebrile to 97.4 �F, pulse rate 95, respiratory rate 28, BP 126/64 and saturating 95% on room air. Initial labs showed WBC 5.9, Hb 8.8, absolute eosinophil count 300, creatinine 2.7, BUN 113, troponin
0.077, and proBNP 24,200. CXR showed a moderate right-sided pleural effusion. He was admitted to the IVU and started on diuresis. Due to patient's SOB, pulmonary service now consulted for additional management/recommendations.
Chronic conditions [employer]: Hypertension, mitral regurgitation, gastritis, anemia, DM type II, history of urinary retention requiring Ny catheter, A-fib on Eliquis, anxiety/depression, chronic HFrEF, CKD, BPH, pulmonary JOANNE, bronchiectasis
Impression:
#Acute respiratory failure with hypoxia
#Acute on chronic HFpEF
#Right-sided pleural effusion
#Left lower extremity cellulitis
#Right middle lobe + lingula bronchiectasis/nodular opacities due to pulmonary JOANNE (supposed to be on azithromycin TIW + ethambutol, started 02/01/2023)
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
#Former tobacco smoker (quit smoking >30 years ago, with a 40-sftl-monu history)
#CAD
#Elevated troponin likely due to demand ischemia in the setting of DAVON (troponin peaked at 0.085 on 06/29/2024)
#A-fib with history of bradycardia
#Mitral regurgitation
#Anemia
#DAVON on CKD with uremia (BUN: 113 on 06/28/2024)
#CBD mass
#RUQ abdominal tenderness likely due to CBD mass
#Left-sided renal mass
#DM type II (HbA1C: 6.9 on 06/29/2024)
Plan:
- Patient's constellation of symptoms is likely due to to acute decompensated heart failure in setting of JOANNE and pulmonary emphysema
- Continue with aggressive diuresis, currently on IV Lasix 40 mg BID
- Maintain net negative fluid balance as tolerated
- Plan for IR right sided thoracentesis tomorrow - would send fluid studies, cultures and cytopath
- Cardiology on board and recommendations appreciated
- Replete electrolytes with K>4, Mg>2
- His Eliquis has been changed to heparin drip as he may need an ERCP with EUS with CBD mass biopsy versus a kidney biopsy given the abnormality seen on recent CT abdomen/pelvis (06/28/24)
- He should follow up with ID s/p discharge with Dr. Maynard to discuss treatment for his MAC as he had skipped ethambutol for few weeks, per the patient
- Although he has paraseptal emphysema, he does not use inhalers and at baseline has no respiratory symptoms
- Maintain SpO2 >90-94% with supplemental O2 as needed
- prn nebulized bronchodilators - not currently bronchospastic
- Incentive spirometer encouraged q1hr while awake
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
this will be an ongoing discussion
- Pain control
- Trend H/H and transfuse if needed to keep Hb>7g/dL; keep plt>20k, unless there is concern for bleeding then keep plt>50k
- Maintain euglycemia with goal BG >100 and <180
- DVT ppx: heparin gtt
Pulmonary service will continue to follow along. After discharge, he should continue following up with us in the office as last visit was on 12/24/2023 with FLORIDA Jones.
Data:
CT abdomen/pelvis 06/28/2024:
Slightly increased moderate to large right pleural effusion and new trace left pleural effusion.
17 mm rounded soft tissue attenuation in the region of the distal common bile duct. The common bile duct is distended, measuring 14 mm. Tiny focus of pneumobilia in the left lobe, which is much less than that seen on the prior study from November
2022. Findings suspicious for obstructing mass or noncalcified choledocholithiasis.
Cholelithiasis with mild hydropic gallbladder. No definitive CT evidence to suggest acute cholecystitis.
No obstructive uropathy. Renal cysts. Slightly hyperdense heterogeneous 2.2 cm mass projecting from the lower pole of the left kidney. Few tiny calcifications. Benign or malignant. Follow-up imaging may be considered for further evaluation if
indicated. This was not specifically mentioned in the original preliminary report.
Diverticulosis. No definitive evidence to suggest acute diverticulitis.
Third spacing.
Total time spent today was 57 minutes for this encounter. Time includes reviewing laboratory test/imaging results, reviewing pertinent medical records, obtaining and reviewing medical history, performing an appropriate exam, ordering medications,
tests and procedures. Time also includes documentation of this encounter, coordinating patient care and communicating with other healthcare professionals. Total time does not include separately billed tests performed on this date of service.
[2024-06-29 15:58] LABS: APTT 34.1 Sec (23.4-35.0)
[2024-06-29 16:54] LABS: Glucose - Point of Care 104 mg/dl (70-99)
[2024-06-29] MEDS: HEPARIN 25000 UNITS/250 ML IV (19:51)
[2024-06-29 21:08] LABS: Glucose - Point of Care 96 mg/dl (70-99)
[2024-06-29] MEDS: FLUSH (NSS) 2 FLUSH IV (22:24)
[2024-06-29] MEDS: RESTORIL 15 MG PO (22:24)
[2024-06-30] VITALS (10 sets, daily range): BP systolic 89–130; BP diastolic 68–88; BMI 22.0
[2024-06-30 03:31] LABS: APTT 40.3 Sec (23.4-35.0)
[2024-06-30 05:39] LABS: % Basophils 0.7 % (0-2); % Eosinophils 4.2 % (0-6); % Immature Granulocytes 0.2 % (0-0.5); % Lymphocytes 9.3 % (20.5-51.1); % Monocytes 7.6 % (1.7-9.3); Absolute Eosinophils 0.3 10^3/uL (0-0.7); Absolute Lymphocytes 0.6 10^3/uL (1.2-3.4); Absolute Monocytes 0.5 10^3/uL (0.1-0.6); Absolute Neutrophils 4.6 10^3/uL (1.4-6.5); Hematocrit 28.5 % (39.0-52.0); Hemoglobin 9.4 g/dL (13.0-18.0); Mean Corpuscular Hgb 28.5 pg (27.0-31.0); Mean Corpuscular Volume 86.4 fL (80.0-94.0); Mean Platelet Volume 12.3 fL (7.4-10.4); Nucleated Red Blood Cells % 0 % (-); Platelet Count 168 10^3/uL (130-400); Red Cell Dist. Width 20.2 % (11.5-14.5); White Blood Cell Count 5.9 10^3/uL (4.8-10.8)
[2024-06-30 05:59] LABS: Blood Urea Nitrogen 102 mg/dl (9-20); Calcium 9.1 mg/dl (8.4-10.2); Carbon Dioxide 31 mmol/L (22-30); Chloride 101 mmol/L (98-107); Estimated Creatinine Clearance 18 ml/min; Glucose 56 mg/dl (70-99); HDL Cholesterol 45 mg/dl; LDL Cholesterol, Calculated 102 mg/dl; Potassium 3.6 mmol/L (3.5-5.1); Sodium 139 mmol/L (135-145); Total Cholesterol 156 mg/dl (50-199); Triglyceride 47 mg/dl (10-149); Very Low Density Lipoprotein 9 mg/dl (0-30)
[2024-06-30 08:24] LABS: Glucose - Point of Care 62 mg/dl (70-99)
[2024-06-30 08:55] LABS: Glucose - Point of Care 108 mg/dl (70-99)
[2024-06-30] MEDS: BUSPAR 7.5 MG PO ×2 (09:04→21:22)
[2024-06-30] MEDS: PROTONIX 40 MG PO (09:05)
[2024-06-30] MEDS: LIPITOR 20 MG PO (09:05)
[2024-06-30] MEDS: FEOSOL 325 MG PO (09:05)
[2024-06-30] MEDS: FLOMAX 0.4 MG PO (09:05)
[2024-06-30] MEDS: LASIX 40 MG IV ×2 (09:06→17:17)
[2024-06-30] MEDS: LEXAPRO 20 MG PO (09:06)
[2024-06-30] MEDS: NOVOLOG FLEXPEN-LOW RESISTANCE SC ×2 (09:07→17:18)
[2024-06-30] MEDS: ANCEF 10 IV ×2 (09:14→21:23)
[2024-06-30] MEDS: ZITHROMAX 500 MG PO (09:25)
[2024-06-30] MEDS: MYAMBUTOL 1200 MG PO (09:25)
[2024-06-30 10:33] LABS: APTT 65.2 Sec (23.4-35.0)
--- NOTE | 2024-06-30 10:43 | W.PN.NEPH.PH ---
Today's Communication / Plan
-
diurese
Assessment/Plan
-
88 y/o male past medical history of A-fib, CHF, DM, CKD, COPD and JOANNE who presents with shortness of breath. Patient reports increasing shortness of breath over the past few months. He had a Chest CT at an outside facility last week which revealed
a right pleural effusion. Patient also reports significant lower extre
Impression.
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 Creatinine 2.6 on admission with records showing creatinine of 2.3 in 2022
CHF with pleural effusion EF 50% as of 2022 record
Lower extremity edema anasarca
Hypertension
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
Plan.
Continue IV Lasix twice daily
for thoracentesis
follow BMP
Daily weights
-
-
Date of Service: June 30, 2024
CC / HPI / ROS
-
Chief Complaint:
DAVON
History of Present Illness:
DAVON/Cr stable 2.6
diuresing with IV lasix for decompensated HFpEF
BP stable
Review of Systems:
no CP
on supplemental O2
Labs
-
Labs:
WBC 5.9 10^3/uL (4.8-10.8) 06/30/24 04:37
RBC 3.30 10^6/uL (4.70-6.10) L 06/30/24 04:37
Hgb 9.4 g/dL (13.0-18.0) L 06/30/24 04:37
Hct 28.5 % (39.0-52.0) L 06/30/24 04:37
Plt Count 168 10^3/uL (130-400) 06/30/24 04:37
Sodium 139 mmol/L (135-145) 06/30/24 04:37
Potassium 3.6 mmol/L (3.5-5.1) 06/30/24 04:37
Chloride 101 mmol/L (98-107) 06/30/24 04:37
Carbon Dioxide 31 mmol/L (22-30) H 06/30/24 04:37
BUN 102 mg/dl (9-20) H* 06/30/24 04:37
Creatinine 2.6 mg/dL (0.7-1.3) H 06/30/24 04:37
eGFR 23.00 06/30/24 04:37
Glucose 56 mg/dl (70-99) L 06/30/24 04:37
Calcium 9.1 mg/dl (8.4-10.2) 06/30/24 04:37
Mpi-C-Txorbhyjbud Pept 56305 pg/ml 06/28/24 17:01
Albumin 3.5 g/dl (3.5-5.0) 06/28/24 17:01
Physical Exam
-
Vital Signs:
Vital Signs
Temp Pulse Resp BP Pulse Ox
97.8 F 80 20 130/76 98
06/30/24 07:52 06/30/24 05:11 06/30/24 07:52 06/30/24 05:11 06/30/24 07:52
Cardiovascular:: Regular rate and rhythm
Respiratory:: Bilateral: Coarse
Lung Excursion:: Normal
Abdomen:: Nontender and Soft
Bowel Sounds:: Normal
Extremity Edema:: None: Bilateral:
--- NOTE | 2024-06-30 11:41 | W.PN.CARDCBS ---
Addendum entered and electronically signed by Diego Mayberry DO 06/30/24 13:22:
I saw and examined the patient.
The Hydrographer's note was reviewed and I agree with the note.
Comment:
Plan:
Cont IV diuresis. May need to increase dosing.
Monitor cr and daily wts
Right sided thoracentesis pending
Echo pending.
work up for bile duct finding ongoing. for MRCP.
Eliquis held and continues with IV Heparin.
Cont rate control strategy for perm Afib.
Discussed with primary service.
Original Note:
Today's Communication / Plan
-
Right-sided thoracentesis
Ongoing diuresis, was taking Lasix 60/40 mg daily as an outpatient, if diuresis slows would consider increasing the dose if renal function is stable
Impression / Plan
-
PCP: Dr. Vinny Rosenthal
Cardiology: Dr. Crews [phone]
Impression:
Admitted with CHF and weight loss 06/28/24
Acute hypoxic respiratory insufficiency
Acute on chronic HFpEF
Preserved echo by last known echo 03/2022
Pleural effusion present previously and currently, moderate to large
Elevated Troponin
Persistent Afib
Chronic Eliquis OAC
Moderate MR by echo 04/24/22
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
Severe coronary atherosclerosis by CT scan as outpatient 05/2024
COPD/emphysema/bronchiectasis/JOANNE
DAVNO on CKD 4
New mass detected chronic bile duct-abdominal discomfort
Lower left renal hyperdense mass
Hypertension
Hyperlipidemia
DM 2
Echo 04/24/2022: Left ventricular ejection fraction 50%. Normal RV. Moderate MR. Mild AI. Mild to moderate TR. PA pressure 48 mmHg.
Echo 06/30/24: Study pending
Plan:
-Patient came to the ER from [facility] with SOB and was admitted with CHF
-Patient followed by Dr. Crews at [facility] because they go to [facility], but when given a choice between [facility] and [facility] by EMS the patient chose [facility]. I called Dr. Crews's office to get records 06/30/24, will review and summarize
when they arrive. Patient was last seen by Dr. Crews 04/2023, he was a no-show for her 04/2024 visit.
-Weight is down at least 4 lbs from admission with Lasix 40 mg IV BID. Patient was taking Lasix 60 mg AM/40 mg PM prior to admission.
-Cre was 2.7 on admission and has improved to 2.6 on 06/30/24, labs reviewed by me. Patient with known CKD 4.
-Outpatient dose of lisinopril 20 mg daily is on hold due to DAVON
-Patient is not chronically on BB. Patient used to take sotalol when we last saw him here at [facility] in 2022, but it is no longer listed on his med list, await records.
-SGLT2 contraindicated at this time given renal function
-Echo pending, but EF previously preserved in 2022 with mod MR.
-Patient with known persistent Afib, he used to take sotalol, but during his admission here in 2022 he was in slow Afib throughout and it looks like his sotalol was stopped and he has been on a rhythm control strategy, will confirm once we get his
records.
-Outpatient dose of Eliquis 2.5 mg BID (age 88, 2.6) is on hold for possible procedure. Patient is being bridged with Heparin gtt.
-Patient with new bile duct mass and renal mass. Patient with right-sided pleural effusion and plan is for thoracentesis, await cytology and pathology.
-Troponin peaked at 0.085 and will be managed as a nonischemic myocardial injury Troponin elevation.
-LDL 102 and outpatient dose of atorvastatin 20 mg daily has been continued.
HPI: He is complicated and he presents feeling very poorly with shortness of breath and symptoms/exam and testing consistent with heart failure previously with normal left ventricular ejection fraction. He has known atrial fibrillation which we
believe currently has been persistent/chronic and he is on oral anticoagulation. He also has significant abdominal discomfort for which he underwent CT scan with a new mass detected chronic bile duct and kidney. He has minimal troponin elevation
which is already started to decrease and more likely secondary to non-NE troponin elevation given degree of illness. He in addition has chronic renal dysfunction followed by nephrology with worsening BUN noted. COPD/emphysema/bronchiectasis/JOANNE
followed by pulmonary (Dr. Gutierrez). He tells me he feels terrible. Oxygenation is stable.
Progress Note - Medicine Tech
Subjective
Date of Service: June 30, 2024
He remains SOB
Objective
Labs:
06/30/24 04:37
06/30/24 04:37
Labs
Hgb 9.4 g/dL (13.0-18.0) L 06/30/24 04:37
Hct 28.5 % (39.0-52.0) L 06/30/24 04:37
Plt Count 168 10^3/uL (130-400) 06/30/24 04:37
APTT 65.2 Sec (23.4-35.0) H 06/30/24 10:08
Sodium 139 mmol/L (135-145) 06/30/24 04:37
Potassium 3.6 mmol/L (3.5-5.1) 06/30/24 04:37
BUN 102 mg/dl (9-20) H* 06/30/24 04:37
Creatinine 2.6 mg/dL (0.7-1.3) H 06/30/24 04:37
Glucose 56 mg/dl (70-99) L 06/30/24 04:37
Troponins
06/28/24 06/28/24 06/29/24
17:01 22:33 02:28
Troponin I 0.077 H* 0.078 H* 0.085 H*
06/29/24
08:42
Troponin I 0.084 H*
Vital Signs and I&O:
Vital Signs
Temp Pulse Resp BP Pulse Ox
98.3 F 80 20 130/76 95
06/30/24 11:25 06/30/24 05:11 06/30/24 11:25 06/30/24 05:11 06/30/24 11:25
Vital Signs
Temp Pulse Resp BP Pulse Ox
98.3 F 80 20 130/76 95
06/30/24 11:25 06/30/24 05:11 06/30/24 11:25 06/30/24 05:11 06/30/24 11:25
Intake & Output
06/28/24 06/29/24 06/30/24 07/01/24
06:59 06:59 06:59 06:59
Intake Total 240 / 240 440 / 440
Output Total 800 / 800 2150 / 2150
Balance -560 / -560 -1710 / -1710
Physical Exam
Physical Exam
GEN: NAD. AAOx3
HEENT: EOMI, wearing glasses
LUNGS: 2 L NC. No audible wheeze
CV: Afib on tele.
ABD: ND
EXT: Trace edema of B/L LE
NEURO: Gross non-focal
SKIN: No rash
--- NOTE | 2024-06-30 11:59 | W.PN.PUL3 ---
Today's Communication / Plan
-
Continue diuresis
Low-sodium diet
Right thoracentesis
Echocardiogram to be repeated
Eventual outpatient follow-up to treat his JOANNE
Continue as needed nebulizer
Assessment
-
Assessment: 88-year-old male with a past medical history of hypertension, mitral regurgitation, gastritis, anemia, DM type II, history of urinary retention requiring Ny catheter, A-fib on Eliquis, anxiety/depression, chronic HFrEF, CKD, BPH,
pulmonary JOANNE, bronchiectasis who presents from [facility] for worsening SOB. His SOB has been worsening for few weeks and patient is aware that he has a right-sided pleural effusion. He had a CT chest at an outside facility
1 week ago that revealed this right-sided pleural effusion. He also has significant lower extremity edema. He has been losing weight over the last several months and has been missing appointments with ID for his JOANNE treatment. Denies fevers,
sweats or chills. Initial vitals showed he was afebrile to 97.4 �F, pulse rate 95, respiratory rate 28, BP 126/64 and saturating 95% on room air. Initial labs showed WBC 5.9, Hb 8.8, absolute eosinophil count 300, creatinine 2.7, BUN 113, troponin
0.077, and proBNP 24,200. CXR showed a moderate right-sided pleural effusion. He was admitted to the IVU and started on diuresis. Due to patient's SOB, pulmonary service now consulted for additional management/recommendations.
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
Impression:
#Acute respiratory failure with hypoxia
#Acute on chronic HFpEF
#Right-sided pleural effusion
#Left lower extremity cellulitis
#Right middle lobe + lingula bronchiectasis/nodular opacities due to pulmonary JOANNE (supposed to be on azithromycin TIW + ethambutol, started 02/01/2023)
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
#Former tobacco smoker (quit smoking >30 years ago, with a [id number] history)
#CAD
#Elevated troponin likely due to demand ischemia in the setting of DAVON (troponin peaked at 0.085 on 06/29/2024)
#A-fib with history of bradycardia
#Mitral regurgitation
#Anemia
#DAVON on CKD with uremia (BUN: 113 on 06/28/2024)
#CBD mass
#RUQ abdominal tenderness likely due to CBD mass
#Left-sided renal mass
#DM type II (HbA1C: 6.9 on 06/29/2024)
Plan:
- Patient's constellation of symptoms is likely due to to acute decompensated heart failure in setting of JOANNE and pulmonary emphysema
- Continue with diuresis, currently on IV Lasix 40 mg BID
- Maintain net negative fluid balance as tolerated
- Plan for IR right sided thoracentesis today 06/30/2024- would send fluid studies, cultures and cytopath
- Cardiology on board and recommendations appreciated
- Replete electrolytes with K>4, Mg>2
Echocardiogram to be updated
-
- His Eliquis has been changed to heparin drip as he may need an ERCP with EUS with CBD mass biopsy versus a kidney biopsy given the abnormality seen on recent CT abdomen/pelvis (06/28/24)
- He should follow up with ID s/p discharge with Dr. Maynard to discuss treatment for his MAC as he had skipped ethambutol for few weeks, per the patient
- Although he has paraseptal emphysema, he does not use inhalers and at baseline has no respiratory symptoms-on spirometry mild airflow obstruction June 2022. FEV1 near normal.
Not bronchospastic on exam 06/30/2024.
- Maintain SpO2 >90-94% with supplemental O2 as needed
- prn nebulized bronchodilators
- Incentive spirometer encouraged q1hr while awake
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
this will be an ongoing discussion
- Pain control
- DVT ppx: heparin gtt
Pulmonary service will continue to follow along. After discharge, he should continue following up with us in the office as last visit was on 12/24/2023 with FLORIDA Jones.
Data:
CT abdomen/pelvis 06/28/2024:
Slightly increased moderate to large right pleural effusion and new trace left pleural effusion.
17 mm rounded soft tissue attenuation in the region of the distal common bile duct. The common bile duct is distended, measuring 14 mm. Tiny focus of pneumobilia in the left lobe, which is much less than that seen on the prior study from November
2022. Findings suspicious for obstructing mass or noncalcified choledocholithiasis.
Cholelithiasis with mild hydropic gallbladder. No definitive CT evidence to suggest acute cholecystitis.
No obstructive uropathy. Renal cysts. Slightly hyperdense heterogeneous 2.2 cm mass projecting from the lower pole of the left kidney. Few tiny calcifications. Benign or malignant. Follow-up imaging may be considered for further evaluation if
indicated. This was not specifically mentioned in the original preliminary report.
Diverticulosis. No definitive evidence to suggest acute diverticulitis.
Third spacing.
Subjective Data
-
Date of Service:
Date of Service: June 30, 2024
Chief Complaint: Pulmonary Follow Up (Hypoxemic respiratory failure/pleural effusion)
Review of Systems
Cardiopulmonary: Dyspnea, Dyspnea on Exertion and Sputum Production (n)
GI: Abdominal Pain (n) and Nausea (n)
Objective Data
Data Reviewed
Vital Signs / I&O / Oxygen:
Vital Signs
Temp Pulse Resp BP Pulse Ox
98.3 F 80 20 130/76 95
06/30/24 11:25 06/30/24 05:11 06/30/24 11:25 06/30/24 05:11 06/30/24 11:25
Intake and Output
06/29/24 06/30/24 07/01/24
06:59 06:59 06:59
Intake Total 240 / 240 440 / 440
Output Total 800 / 800 2150 / 2150
Balance -560 / -560 -1710 / -1710
SaO2 95
Nasal Cannula flow liters per 2
minute
Physical Exam
General: Comfortable
HEENT: Normocephalic
Respiratory: Crackles and Other (Decreased breath sounds in the right)
GI: Soft and Non Distended
Neurology: Awake, AO x 3 and No Motor Deficits
Skin: Warm
Labs/Micro/Reports
Lab Data
06/30/24 04:37
06/30/24 04:37
Laboratory Results
06/29/24 06/29/24 06/30/24
14:52 15:35 02:08
APTT Cancelled 34.1 40.3 H
06/30/24
10:08
APTT 65.2 H
[2024-06-30 12:11] LABS: Glucose - Point of Care 178 mg/dl (70-99)
[2024-06-30] MEDS: NOVOLOG FLEXPEN-LOW RESISTANCE 1 UNITS SC (12:37)
--- NOTE | 2024-06-30 14:16 | PTCARENOTE ---
Rec'd Pt s/p R thoracentesis, A,A+Ox3, denies pain. R back bandaid D+I. VSS.
--- NOTE | 2024-06-30 14:56 | CM ---
Reviewed chart. Met with Mr. Baltazar to review discharge plans. He states prior to admission he resides alone in an apartment at [facility]. He states he uses the elevator to get to his apartment on the second floor. He states
prior to admission he was independent with ambulation in the apartment. He states he uses a scooter in the community. He states he has a scooter at home. He states he has a prescription plan and uses [facility]. Will need to see
his current functional level to see if he will have any skilled care needs. Medical work-up up progress. The discharge plan is to home with [facility] verses SNF/Rehab. if indicated when medically stable.
[2024-06-30 15:06] LABS: Body Fluid Mononuclear 75.4 %; Body Fluid Polymorphonuclear 24.6 %; Body Fluid WBC 65 /CUMM
[2024-06-30 15:08] LABS: Body Fluid Amylase < 30 U/L; Body Fluid Glucose 95 mg/dl; Body Fluid LDH 59 U/L; Body Fluid Protein < 2.0 g/dl; Body Fluid Triglycerides < 30 mg/dl
[2024-06-30 15:33] LABS: Body Fluid Second Tech DW
--- NOTE | 2024-06-30 16:06 | W.PN.HOSP.TC ---
Today's Communication/Plan
-
f/u thoracentesis labs, cyto
MRCP
IV diuresis
Assessment / Plan
Assessment / Plan
Acute on Chronic HFpEF
-Consult Cardiology
-Continue Lasix 40mg IV BID
-Check Echo on Sunday
-thoracentesis today, f/u Lytes criteria, Cyto
-Monitor Is&Os and Daily Weights
#Pleural Effusion
-F/u thora labs, cyto
#Respiratory Distress
component of CHF/ILD/Pleural Effusion
thora as above
-pulm consulted
-diuresis
eventual f/u to treat JOANNE
Left lower ext cellulitis
continue Ancef for now
Weight Loss with Protein Calorie Malnutrition
-Consult Dietary
Right Upper Quadrant Abdominal Tenderness
- Abd/Pelvis CT: Limited by lack of intravenous contrast.
17 mm rounded soft tissue attenuation in the region of the distal common bile duct. The common bile duct is distended, measuring 14 mm. Tiny focus of pneumobilia in the left lobe, which is much less than that seen on the prior study from November
2022. Findings suspicious for obstructing mass or noncalcified choledocholithiasis.
Cholelithiasis with mild hydropic gallbladder. No definitive CT evidence to suggest acute cholecystitis.
-ordered MRCP
Permanent Atrial Fibrillation
-Continue Eliquis for anticoagulation
Essential Hypertension
-Hold Lisinopril
Hyperlipidemia
-Continue atorvastatin
Diabetes Mellitus, Type II
-Hold Glipizide
-Check HgbA1c 6.9
-Monitor sugar and continue coverage insulin
CKD Stage IIIB
-Creatinine slightly above baseline with significantly elevated BUN
-Monitor closely while on diuretics
- Use of IV Lasix for CHF cautiously in pt with prerenal azotemia based on BUN to Creat ratio.
Emphysema / COPD
-Patient does not appear to be on any inhalers as outpatient
JOANNE
-Continue azithromycin and ethambutol
Anxiety / Depression
-Continue escitalopram and temazepam
GERD
-Continue Protonix
BPH
-Continue Flomax
DVT proph: Eliquis
Code Status: DNR
More than 30 minutes spent in discharge including
Final examination of the patient
Summarizing hospital stay
Instructions for continuing care to all relevant caregivers
Preparation of discharge records, prescriptions, and referral forms
Total time spent (in minutes): 36
Anticipated Discharge: > 48 hours
Subjective/Interval History
-
Date of Service: June 30, 2024
no acute events overnight
Objective Data
-
Labs:
Laboratory Results
06/30/24 06/30/24 06/30/24
04:37 10:08 17:00
WBC 5.9
Hgb 9.4 L
Hct 28.5 L
Plt Count 168
APTT 65.2 H Pending
Sodium 139
Potassium 3.6
Chloride 101
Carbon Dioxide 31 H
BUN 102 H*
Creatinine 2.6 H
Glucose 56 L
Calcium 9.1
Vital Signs:
Vital Signs
Temp Pulse Resp BP Pulse Ox
98.2 F 89 20 117/70 74
06/30/24 16:04 06/30/24 14:27 06/30/24 16:04 06/30/24 14:27 06/30/24 16:04
I&O
06/29/24 06/30/24 07/01/24
06:59 06:59 06:59
Intake Total 240 / 240 440 / 440 240 / 240
Output Total 800 / 800 2150 / 2150 525 / 525
Balance -560 / -560 -1710 / -1710 -285 / -285
Review of Systems
-
History Source: Patient
All other systems: Not reviewed unless documented
Physical Exam
-
General: Well Developed, Well Nourished, Respiratory Distress, Appears in Distress and Conversant
HEENT: Normocephalic, Atraumatic and Moist Mucous Membranes
Respiratory: Wheezes (end expiratory), Rales (bibasilar) and Decreased Breath Sounds (rt lower lung)
Cardiac: S1/S2, Irregular Rhythm and Murmur (2/6sem)
GI: Soft, Nontender and Nondistended
Musculoskeletal: No Clubbing, No Cyanosis, Edema, Right Lower Extrem (1+) and Edema, Left Lower Extrem (1+)
Skin: Rash (cellulitic changes left lower leg)
Neuro: Awake, Alert and Oriented
Data Reviewed
-
Diagnostic Radiology: Report Reviewed by me
CT Scan: Report Reviewed by me
--- NOTE | 2024-06-30 16:43 | PN.CDI ---
CDI
- -
CDI:
Physician Documentation Request
Admit Date: 06/28/24 19:30
Dear Doctor Carl,
Please review the following and provide your response in the progress notes.
Clinical Indicators:
Pt admitted with Acte on Chronic CHFpEF exacerbation/DAVON on CKD 4
There is potentially conflicting documentation in the record regarding the type of atrial fib.
Cardiology consult and 06/30 progress note ,' Persistent Afib Chronic Eliquis OAC...'
Progress notes 06/29 & 06/30,' Permanent Atrial Fibrillation Continue Eliquis for anticoagulation...'
Due to potentially conflicting documentation please provide further specificity regarding atrial fibrillation, such as:
Persistent atrial fibrillation - episodes of continuous AF that last more than 7 days and do not self-terminate
Permanent atrial fibrillation - when a decision has been made to accept the presence of AF and there is no further attempt to restore or maintain sinus rhythm
Other - please specify
Use of terms such as suspected, likely, concern for, or probable (associated with a specific diagnosis that is being evaluated, monitored, or treated as if it exists) are acceptable and can be coded in the inpatient setting, when documented at the
time of discharge.
Thank you,
Edie Flowers RN
CDI Specialist
[place] [facility]
Please use your independent medical judgment in providing your response.
[2024-06-30 17:14] LABS: Glucose - Point of Care 136 mg/dl (70-99)
[2024-06-30] MEDS: TYLENOL 650 MG PO (17:17)
[2024-06-30 17:34] LABS: APTT 93.7 Sec (23.4-35.0)
--- NOTE | 2024-06-30 18:17 | PTCARENOTE ---
Pt c/o headache, Dr James notified. Tylenol 650 mg po ordered and given with relief noted.
[2024-06-30] MEDS: HEPARIN 25000 UNITS/250 ML IV (18:53)
[2024-06-30] MEDS: RESTORIL 15 MG PO (21:23)
[2024-06-30 21:50] LABS: Glucose - Point of Care 178 mg/dl (70-99)
[2024-07-01] VITALS (7 sets, daily range): BP systolic 98–133; BP diastolic 67–85; BMI 21.0
[2024-07-01 00:02] LABS: APTT 144.9 Sec (23.4-35.0)
[2024-07-01 04:29] LABS: Hematocrit 29.3 % (39.0-52.0); Hemoglobin 9.6 g/dL (13.0-18.0); Mean Corp Hgb Conc. 32.8 g/dL (33.0-37.0); Mean Corpuscular Hgb 28.2 pg (27.0-31.0); Mean Corpuscular Volume 86.2 fL (80.0-94.0); Mean Platelet Volume 11.8 fL (7.4-10.4); Platelet Count 161 10^3/uL (130-400); Red Cell Dist. Width 19.9 % (11.5-14.5); White Blood Cell Count 4.8 10^3/uL (4.8-10.8)
[2024-07-01 05:05] LABS: Blood Urea Nitrogen 102 mg/dl (9-20); Calcium 8.8 mg/dl (8.4-10.2); Carbon Dioxide 33 mmol/L (22-30); Chloride 100 mmol/L (98-107); Estimated Creatinine Clearance 17 ml/min; Glucose 106 mg/dl (70-99); Potassium 3.3 mmol/L (3.5-5.1); Sodium 140 mmol/L (135-145); eGFR 21.98
--- NOTE | 2024-07-01 07:59 | W.PN.CARDCBS ---
Addendum entered and electronically signed by Diego Mayberry DO 07/01/24 17:19:
I saw and examined the patient.
The Graphics Edit Technician's note was reviewed and I agree with the note.
Comment:
Plan:
Reviewed echo with pt, EF is slightly lower and MR is now severe and eccentric. He will need follow up as outpt for his MR with his outside director inpatient headache program.
Cont IV lasix diuresis. He has CRI. Wt continues to come down. Lasix resumed. Monitor cr.
s/p right thoracentesis
Repleted potassium, maintain K>4 and Mg>2 in light of NSVT. Beta nabeel added.
Right sided thoracentesis with 2L out June 30. he continues with dyspnea.
work up for bile duct finding ongoing. for MRCP.
Eliquis held and continues with IV Heparin.
Cont rate control strategy for perm Afib.
Discussed with primary service.
Original Note:
Today's Communication / Plan
-
Oxygenation improved, weight is down and Cre is up. Will hold this afternoon's Lasix and await labs in AM
Heparin bridge for MRCP
NSVT this AM in the setting of potassium 3.6, KCl 40 meq given this AM
Impression / Plan
-
PCP: Dr. Vinny Rosenthal
Cardiology: Dr. Crews [phone]
Impression:
Admitted with CHF and weight loss 06/28/24
Acute hypoxic respiratory insufficiency
Acute on chronic HFpEF
Preserved echo by last known echo 03/2022
Pleural effusion present previously and currently, moderate to large
Elevated Troponin
Permanent Afib
Chronic Eliquis OAC
Moderate MR by echo 04/24/22, severe eccentric MR by echo 06/30/2024
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
Severe coronary atherosclerosis by CT scan as outpatient 05/2024
COPD/emphysema/bronchiectasis/JOANNE
DAVON on CKD 4
New mass detected chronic bile duct-abdominal discomfort
Lower left renal hyperdense mass
Hypertension
Hyperlipidemia
DM 2
NSVT on tele 07/01/24 AM
Hypokalemia
Echo 04/24/2022: Left ventricular ejection fraction 50%. Normal RV. Moderate MR. Mild AI. Mild to moderate TR. PA pressure 48 mmHg.
Echo 06/30/24: EF 40 to 45%, biatrial enlargement, severe eccentric MR, moderate TR
Plan:
-Patient came to the ER from [facility] with SOB and was admitted with CHF
-Patient followed by Dr. Crews at [facility] because they go to [facility], but when given a choice between [facility] and [facility] by EMS the patient chose [facility]. I called Dr. Crews's office to get records 06/30/24 and they are now reviewed
and summarized within this note 07/01/24. Patient was last seen by Dr. Crews 04/1923, he was a no-show for her 04/2024 visit. No previous echo.
-Weight is down another 6 lbs overnight with Lasix 40 mg IV BID. Cre up to 2.7 on 07/01/24 on labs reviewed by me. Will hold afternoon dose of Lasix 07/01/24 and reassess Cre in AM. Patient was taking Lasix 60 mg AM/40 mg PM prior to admission.
-EF now down to 40-45% compared to last echo from 2022. Patient is not a candidate for ischemic work-up at this time and should follow up with his primary director inpatient headache program pending the outcome of this admission
-Outpatient dose of lisinopril 20 mg daily is on hold due to DAVON
-Patient is not chronically on BB. Patient used to take sotalol when we last saw him here at [facility] in 2022, but it is no longer listed on his med list. Records from primary director inpatient headache program did not shed any light on why BB might have been stopped. Will
try adding Toprol XL 12.5 mg daily, ordered by me 07/01/24.
-SGLT2 contraindicated at this time given renal function
-Patient with known persistent Afib. Previously on sotalol, but stopped and now permanent Afib since 2023.
-Outpatient dose of Eliquis 2.5 mg BID (age 88, 2.6) is on hold for possible procedure. Patient is being bridged with Heparin gtt.
-Patient with new bile duct mass and renal mass. Patient with right-sided pleural effusion and plan is for thoracentesis, await cytology and pathology. Scheduled for MRCP 07/01/24.
-Troponin peaked at 0.085 and will be managed as a nonischemic myocardial injury Troponin elevation.
-LDL 102 and outpatient dose of atorvastatin 20 mg daily has been continued.
-Patient with 13 beat run of NSVT on 07/01/24. Labs reveiwed by me 07/01/24 and potassium was 3.6. KCl 40 meq x1 ordered by me. Magnesium level ordered by me and was normal at 2.3. Follow up on [facility] in AM.
HPI: He is complicated and he presents feeling very poorly with shortness of breath and symptoms/exam and testing consistent with heart failure previously with normal left ventricular ejection fraction. He has known atrial fibrillation which we
believe currently has been persistent/chronic and he is on oral anticoagulation. He also has significant abdominal discomfort for which he underwent CT scan with a new mass detected chronic bile duct and kidney. He has minimal troponin elevation
which is already started to decrease and more likely secondary to non-NC troponin elevation given degree of illness. He in addition has chronic renal dysfunction followed by nephrology with worsening BUN noted. COPD/emphysema/bronchiectasis/JOANNE
followed by pulmonary (Dr. Gutierrez). He tells me he feels terrible. Oxygenation is stable.
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
Subjective
Date of Service: July 01, 2024
No palpitations or lightheadedness
Objective
Labs:
07/01/24 03:58
07/01/24 03:58
Labs
Hgb 9.6 g/dL (13.0-18.0) L 07/01/24 03:58
Hct 29.3 % (39.0-52.0) L 07/01/24 03:58
Plt Count 161 10^3/uL (130-400) 07/01/24 03:58
APTT 144.9 Sec (23.4-35.0) H 06/30/24 23:40
Sodium 140 mmol/L (135-145) 07/01/24 03:58
Potassium 3.3 mmol/L (3.5-5.1) L 07/01/24 03:58
BUN 102 mg/dl (9-20) H* 07/01/24 03:58
Creatinine 2.7 mg/dL (0.7-1.3) H 07/01/24 03:58
Glucose 106 mg/dl (70-99) H 07/01/24 03:58
Troponins
06/28/24 06/28/24 06/29/24
17:01 22:33 02:28
Troponin I 0.077 H* 0.078 H* 0.085 H*
06/29/24
08:42
Troponin I 0.084 H*
Vital Signs and I&O:
Vital Signs
Temp Pulse Resp BP Pulse Ox
97.8 F 79 16 133/85 96
07/01/24 07:24 07/01/24 07:24 07/01/24 07:24 07/01/24 07:24 07/01/24 07:24
Vital Signs
Temp Pulse Resp BP Pulse Ox
97.8 F 79 16 133/85 96
07/01/24 07:24 07/01/24 07:24 07/01/24 07:24 07/01/24 07:24 07/01/24 07:24
Intake & Output
06/29/24 06/30/24 07/01/24 07/02/24
06:59 06:59 06:59 06:59
Intake Total 240 / 240 440 / 440 440 / 440
Output Total 800 / 800 2150 / 2150 1475 / 1475
Balance -560 / -560 -1710 / -1710 -1035 / -1035
Physical Exam
Physical Exam
GEN: NAD. AAOx3
HEENT: EOMI, wearing glasses
LUNGS: RA. No audible wheeze
CV: Afib on tele.
ABD: ND
EXT: Trace edema of B/L LE
NEURO: Gross non-focal
SKIN: No rash
[2024-07-01] MEDS: KCL 40 MEQ PO (08:12)
[2024-07-01] MEDS: BUSPAR 7.5 MG PO ×2 (08:13→18:32)
[2024-07-01] MEDS: FEOSOL 325 MG PO (08:13)
[2024-07-01] MEDS: LIPITOR 20 MG PO (08:13)
[2024-07-01] MEDS: LEXAPRO 20 MG PO (08:13)
[2024-07-01] MEDS: PROTONIX 40 MG PO (08:14)
[2024-07-01] MEDS: FLOMAX 0.4 MG PO (08:14)
--- NOTE | 2024-07-01 08:35 | PTCARENOTE ---
Pt had 13 beat run of wide complex tachycardia, Dr Pa and Dr Henry aware. K+ 3.3. 40 mEq KCL ordered and given to Pt. Mag level added to am labs.
[2024-07-01 08:52] LABS: Magnesium 2.3 mg/dl (1.6-2.3)
[2024-07-01 08:56] LABS: Glucose - Point of Care 106 mg/dl (70-99)
[2024-07-01] MEDS: NOVOLOG FLEXPEN-LOW RESISTANCE SC (09:13)
[2024-07-01 10:05] LABS: APTT 55.5 Sec (23.4-35.0)
[2024-07-01] MEDS: LASIX 40 MG IV (10:21)
[2024-07-01] MEDS: ANCEF 10 IV ×2 (10:21→22:49)
--- NOTE | 2024-07-01 11:06 | W.PN.PUL3 ---
Today's Communication / Plan
-
Continue IV diuresis-clinical picture consistent with heart failure.
Follow-up pleural fluid cytology-pleural fluid likely related to heart failure.
Will need eventual radiographic follow-up
For MRCP to evaluate biliary duct dilatation.
Assessment
-
Assessment: 88-year-old male with a past medical history of hypertension, mitral regurgitation, gastritis, anemia, DM type II, history of urinary retention requiring Ny catheter, A-fib on Eliquis, anxiety/depression, chronic HFrEF, CKD, BPH,
pulmonary JOANNE, bronchiectasis who presents from [facility] for worsening SOB. His SOB has been worsening for few weeks and patient is aware that he has a right-sided pleural effusion. He had a CT chest at an outside facility
1 week ago that revealed this right-sided pleural effusion. He also has significant lower extremity edema. He has been losing weight over the last several months and has been missing appointments with ID for his JOANNE treatment. Denies fevers,
sweats or chills. Initial vitals showed he was afebrile to 97.4 �F, pulse rate 95, respiratory rate 28, BP 126/64 and saturating 95% on room air. Initial labs showed WBC 5.9, Hb 8.8, absolute eosinophil count 300, creatinine 2.7, BUN 113, troponin
0.077, and proBNP 24,200. CXR showed a moderate right-sided pleural effusion. He was admitted to the IVU and started on diuresis. Due to patient's SOB, pulmonary service now consulted for additional management/recommendations.
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
Impression:
#Acute respiratory failure with hypoxia
#Acute on chronic HFpEF
#Right-sided pleural effusion
Status post thoracentesis 06/30/2024: Transudate.
#Left lower extremity cellulitis
#Right middle lobe + lingula bronchiectasis/nodular opacities due to pulmonary JOANNE (supposed to be on azithromycin TIW + ethambutol, started 02/01/2023)
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
#Former tobacco smoker (quit smoking >30 years ago, with a 28-zoov-mjap history)
#CAD
#Elevated troponin likely due to demand ischemia in the setting of DAVON (troponin peaked at 0.085 on 06/29/2024)
#A-fib with history of bradycardia
#Mitral regurgitation
#Anemia
#DAVON on CKD with uremia (BUN: 113 on 06/28/2024)
#CBD mass
#RUQ abdominal tenderness likely due to CBD mass
#Left-sided renal mass
#DM type II (HbA1C: 6.9 on 06/29/2024)
Plan:
- Patient's constellation of symptoms is likely due to to acute decompensated heart failure in setting of JOANNE and pulmonary emphysema
- Continue with diuresis, currently on IV Lasix 40 mg BID
- Maintain net negative fluid balance as tolerated
- Status post right thoracentesis: 06/30/2024-transudative likely due to heart failure. Cytology pending.
- Cardiology on board and recommendations appreciated
- Replete electrolytes with K>4, Mg>2
Echocardiogram: 06/30/2024-LVEF 40 to 45%. Hypokinesis in the inferior septal, inferior and anteroseptal foss. Biatrial enlargement. Severe mitral regurgitation. Moderate TR. Worse compared to prior in March 2022
-
- His Eliquis has been changed to heparin drip as he may need an ERCP with EUS with CBD mass biopsy versus a kidney biopsy given the abnormality seen on recent CT abdomen/pelvis (06/28/24)
-For MRCP.
-
- He should follow up with ID s/p discharge with Dr. Maynard to discuss treatment for his MAC as he had skipped ethambutol for few weeks, per the patient
- Although he has paraseptal emphysema, he does not use inhalers and at baseline has no respiratory symptoms-on spirometry mild airflow obstruction June 2022. FEV1 near normal.
Not bronchospastic on exam.
- Maintain SpO2 >90-94% with supplemental O2 as needed
- prn nebulized bronchodilators
- Incentive spirometer encouraged q1hr while awake
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
this will be an ongoing discussion
- Pain control
- DVT ppx: heparin gtt
Pulmonary service will continue to follow along. After discharge, he should continue following up with us in the office as last visit was on 12/24/2023 with FLORIDA Jones.
Data:
CT abdomen/pelvis 06/28/2024:
Slightly increased moderate to large right pleural effusion and new trace left pleural effusion.
17 mm rounded soft tissue attenuation in the region of the distal common bile duct. The common bile duct is distended, measuring 14 mm. Tiny focus of pneumobilia in the left lobe, which is much less than that seen on the prior study from November
2022. Findings suspicious for obstructing mass or noncalcified choledocholithiasis.
Cholelithiasis with mild hydropic gallbladder. No definitive CT evidence to suggest acute cholecystitis.
No obstructive uropathy. Renal cysts. Slightly hyperdense heterogeneous 2.2 cm mass projecting from the lower pole of the left kidney. Few tiny calcifications. Benign or malignant. Follow-up imaging may be considered for further evaluation if
indicated. This was not specifically mentioned in the original preliminary report.
Diverticulosis. No definitive evidence to suggest acute diverticulitis.
Third spacing.
Subjective Data
-
Date of Service:
Date of Service: July 01, 2024
Chief Complaint: Pulmonary Follow Up (Hypoxemic respiratory failure/pleural effusion)
Subjective:
Status post thoracentesis
Shortness of breath improved
Review of Systems
Cardiopulmonary: Dyspnea (improved)
GI: Abdominal Pain (n) and Nausea (n)
Objective Data
Data Reviewed
Vital Signs / I&O / Oxygen:
Vital Signs
Temp Pulse Resp BP Pulse Ox
97.8 F 80 16 133/85 97
07/01/24 07:24 07/01/24 08:00 07/01/24 07:24 07/01/24 07:25 07/01/24 07:55
Intake and Output
06/30/24 07/01/24 07/02/24
06:59 06:59 06:59
Intake Total 440 / 440 440 / 440
Output Total 2150 / 2150 1475 / 1475
Balance -1710 / -1710 -1035 / -1035
SaO2 97
Nasal Cannula flow liters per 2
minute
Physical Exam
General: Comfortable
HEENT: Normocephalic
Respiratory: Crackles
GI: Soft and Non Distended
Neurology: Awake, AO x 3 and No Motor Deficits
Skin: Warm
Labs/Micro/Reports
Lab Data
07/01/24 03:58
07/01/24 03:58
Laboratory Results
06/30/24 06/30/24 07/01/24
17:13 23:40 09:28
APTT 93.7 H 144.9 H 55.5 H
Microbiology
06/30/24 14:00 Pleural Fluid Gram Stain - Preliminary
06/30/24 14:00 Pleural Fluid Fungal Culture - Preliminary
Culture in progress.
Positive cultures are reported as soon as detected.
Final report to follow in four to five weeks.
[2024-07-01 12:14] LABS: Glucose - Point of Care 231 mg/dl (70-99)
[2024-07-01] MEDS: NOVOLOG FLEXPEN-LOW RESISTANCE 2 UNITS SC ×2 (14:23→17:10)
--- NOTE | 2024-07-01 14:41 | W.PN.HOSP.TC ---
Today's Communication/Plan
-
iv lasix
abx
MRCP
Assessment / Plan
Assessment / Plan
Acute on Chronic HFpEF
-Consult Cardiology
-Continue Lasix 40mg IV BID
-Check Echo on Sunday - severe MR
-thoracentesis today, f/u Lytes criteria, Cyto
-Monitor Is&Os and Daily Weights
#Pleural Effusion
-F/u thora labs, cyto
#Respiratory Distress
component of CHF/ILD/Pleural Effusion
thora as above
-pulm consulted
-diuresis
eventual f/u to treat JOANNE�continue azithromycin
Left lower ext cellulitis
continue Ancef for now
Weight Loss with Protein Calorie Malnutrition
-Consult Dietary
Right Upper Quadrant Abdominal Tenderness
- Abd/Pelvis CT: Limited by lack of intravenous contrast.
17 mm rounded soft tissue attenuation in the region of the distal common bile duct. The common bile duct is distended, measuring 14 mm. Tiny focus of pneumobilia in the left lobe, which is much less than that seen on the prior study from November
2022. Findings suspicious for obstructing mass or noncalcified choledocholithiasis.
Cholelithiasis with mild hydropic gallbladder. No definitive CT evidence to suggest acute cholecystitis.
-ordered MRCP
Permanent Atrial Fibrillation
-Continue Eliquis for anticoagulation
Essential Hypertension
-Hold Lisinopril
Hyperlipidemia
-Continue atorvastatin
Diabetes Mellitus, Type II
-Hold Glipizide
-Check HgbA1c 6.9
-Monitor sugar and continue coverage insulin
CKD Stage IIIB
-Creatinine slightly above baseline with significantly elevated BUN
-Monitor closely while on diuretics
- Use of IV Lasix for CHF cautiously in pt with prerenal azotemia based on BUN to Creat ratio.
Emphysema / COPD
-Patient does not appear to be on any inhalers as outpatient
JOANNE
-Continue azithromycin and ethambutol
Anxiety / Depression
-Continue escitalopram and temazepam
Hypokalemia
� Monitor and replete
GERD
-Continue Protonix
BPH
-Continue Flomax
DVT proph: Eliquis
Code Status: DNR
Anticipated Discharge: > 48 hours
Subjective/Interval History
-
Date of Service: July 01, 2024
not much change from yesterday
Objective Data
-
Labs:
Laboratory Results
07/01/24 07/01/24 07/01/24
03:58 09:28 16:25
WBC 4.8
Hgb 9.6 L
Hct 29.3 L
Plt Count 161
APTT 55.5 H Pending
Sodium 140
Potassium 3.3 L
Chloride 100
Carbon Dioxide 33 H
BUN 102 H*
Creatinine 2.7 H
Glucose 106 H
Calcium 8.8
Vital Signs:
Vital Signs
Temp Pulse Resp BP Pulse Ox
97.7 F 95 16 119/85 94
07/01/24 12:04 07/01/24 12:04 07/01/24 12:04 07/01/24 12:04 07/01/24 12:04
I&O
06/30/24 07/01/24 07/02/24
06:59 06:59 06:59
Intake Total 440 / 440 440 / 440
Output Total 2150 / 2150 1475 / 1475
Balance -1710 / -1710 -1035 / -1035
Review of Systems
-
History Source: Patient
All other systems: Not reviewed unless documented
Physical Exam
-
General: Well Developed, Well Nourished, Respiratory Distress, Appears in Distress and Conversant
HEENT: Normocephalic, Atraumatic and Moist Mucous Membranes
Respiratory: Wheezes (end expiratory), Rales (bibasilar) and Decreased Breath Sounds (rt lower lung)
Cardiac: S1/S2, Irregular Rhythm and Murmur (2/6sem)
GI: Soft, Nontender and Nondistended
Musculoskeletal: No Clubbing, No Cyanosis, Edema, Right Lower Extrem (1+) and Edema, Left Lower Extrem (1+)
Skin: Rash (cellulitic changes left lower leg)
Neuro: Awake, Alert and Oriented
Data Reviewed
-
Diagnostic Radiology: Report Reviewed by me
CT Scan: Report Reviewed by me
[2024-07-01] MEDS: TOPROL XL 12.5 MG PO (15:30)
--- NOTE | 2024-07-01 16:08 | CM ---
Reviewed chart. Met with Mr. Baltazar to review discharge plans. He states he feels about the same. We reviewed [facility] with him. He is agreeable to [facility] and he has selected [facility]. Telephone call to [facility]ake to make the referral. Sent the referral. Prior to admission he resides alone in an a apartment at [facility]. He uses the elevator to get to his second floor apartment. He ambulates independently in the apartment and
uses a scooter in the community. He has a prescription plan and uses [facility]. Will need to see his current functional status to see if he will have any skilled care needs. Medical work-up in progress. The discharge plan is to
return to his apartment at [facility] with [facility] when medically stable.
[2024-07-01 16:42] LABS: Glucose - Point of Care 233 mg/dl (70-99)
--- NOTE | 2024-07-01 18:03 | W.PN.NEPH.PH ---
Today's Communication / Plan
-
hold lasix
Assessment/Plan
-
88 y/o male past medical history of A-fib, CHF, DM, CKD, COPD and JOANNE who presents with shortness of breath. Patient reports increasing shortness of breath over the past few months. He had a Chest CT at an outside facility last week which revealed
a right pleural effusion. Patient also reports significant lower extre
Impression.
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 Creatinine 2.6 on admission with records showing creatinine of 2.3 in 2022
CHF with pleural effusion EF 50% as of 2022 record
Lower extremity edema anasarca
Hypertension
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
Plan.
hold lasix
follow BMP
Daily weights
may be able to restart lasix daily in next 24-48hrs
-
-
Date of Service: July 01, 2024
CC / HPI / ROS
-
Chief Complaint:
DAVON
History of Present Illness:
DAVON/Cr stable 2.7
diuresing with IV lasix for decompensated HFpEF
BP stable
K low 3.3
Review of Systems:
no CP
on supplemental O2
weights down significantly
Labs
-
Labs:
WBC 4.8 10^3/uL (4.8-10.8) 07/01/24 03:58
RBC 3.40 10^6/uL (4.70-6.10) L 07/01/24 03:58
Hgb 9.6 g/dL (13.0-18.0) L 07/01/24 03:58
Hct 29.3 % (39.0-52.0) L 07/01/24 03:58
Plt Count 161 10^3/uL (130-400) 07/01/24 03:58
Sodium 140 mmol/L (135-145) 07/01/24 03:58
Potassium 3.3 mmol/L (3.5-5.1) L 07/01/24 03:58
Chloride 100 mmol/L (98-107) 07/01/24 03:58
Carbon Dioxide 33 mmol/L (22-30) H 07/01/24 03:58
BUN 102 mg/dl (9-20) H* 07/01/24 03:58
Creatinine 2.7 mg/dL (0.7-1.3) H 07/01/24 03:58
eGFR 21.98 07/01/24 03:58
Glucose 106 mg/dl (70-99) H 07/01/24 03:58
Calcium 8.8 mg/dl (8.4-10.2) 07/01/24 03:58
Jgl-H-Cazlitynpzq Pept 37933 pg/ml 06/28/24 17:01
Albumin 3.5 g/dl (3.5-5.0) 06/28/24 17:01
Physical Exam
-
Vital Signs:
Vital Signs
Temp Pulse Resp BP Pulse Ox
97.6 F 85 20 112/78 97
07/01/24 14:51 07/01/24 16:00 07/01/24 14:53 07/01/24 14:21 07/01/24 14:53
Cardiovascular:: Regular rate and rhythm
Respiratory:: Bilateral: Coarse
Lung Excursion:: Normal
Abdomen:: Nontender and Soft
Bowel Sounds:: Normal
Extremity Edema:: +1: Bilateral:
--- NOTE | 2024-07-01 18:50 | PTCARENOTE ---
Pt c/o feeling anxious, Pt requesting med. Buspar, dose due for 8 pm, given early.
[2024-07-01 20:16] LABS: Glucose - Point of Care 210 mg/dl (70-99)
[2024-07-01] MEDS: HEPARIN 25000 UNITS/250 ML IV (20:16)
[2024-07-01] MEDS: ATIVAN 0.25 MG PO (20:17)
[2024-07-01] MEDS: RESTORIL 15 MG PO (22:49)
[2024-07-01 23:04] LABS: APTT 103.3 Sec (23.4-35.0)
[2024-07-02 03:33] VITALS: BP 109/84
[2024-07-02 05:24] LABS: Hematocrit 29.9 % (39.0-52.0); Hemoglobin 9.9 g/dL (13.0-18.0); Mean Corp Hgb Conc. 33.1 g/dL (33.0-37.0); Mean Corpuscular Hgb 28.9 pg (27.0-31.0); Mean Corpuscular Volume 87.2 fL (80.0-94.0); Mean Platelet Volume 11.8 fL (7.4-10.4); Platelet Count 169 10^3/uL (130-400); Red Blood Cell Count 3.43 10^6/uL (4.70-6.10); Red Cell Dist. Width 19.7 % (11.5-14.5)
[2024-07-02 05:33] LABS: APTT 133.4 Sec (23.4-35.0)
[2024-07-02 05:59] VITALS: BMI 21.4
--- NOTE | 2024-07-02 06:00 | PTCARENOTE ---
Pt with increased anxiety, Ativan x 1 dose given with positive result. Afib on monitor. Cont. Heparin gtt per protocol. call short in reach
[2024-07-02 06:47] LABS: ALT (SGPT) < 10 U/L (0-50); AST (SGOT) 25 U/L (17-59); Alkaline Phosphatase 105 U/L (38-126); Blood Urea Nitrogen 97 mg/dl (9-20); Calcium 8.9 mg/dl (8.4-10.2); Carbon Dioxide 27 mmol/L (22-30); Chloride 104 mmol/L (98-107); Estimated Creatinine Clearance 19 ml/min; Glucose 146 mg/dl (70-99); Potassium 3.9 mmol/L (3.5-5.1); Sodium 140 mmol/L (135-145); Total Bilirubin 0.8 mg/dl (0.2-1.3); Total Protein 5.2 g/dl (6.3-8.2); eGFR 25.32
[2024-07-02 07:11] LABS: Glucose - Point of Care 151 mg/dl (70-99)
[2024-07-02 07:12] VITALS: BP 121/66
[2024-07-02] MEDS: LEXAPRO 20 MG PO (08:29)
[2024-07-02] MEDS: TOPROL XL 12.5 MG PO (08:29)
[2024-07-02] MEDS: NOVOLOG FLEXPEN-LOW RESISTANCE 1 UNITS SC (08:29)
[2024-07-02] MEDS: PROTONIX 40 MG PO (08:29)
[2024-07-02] MEDS: LIPITOR 20 MG PO (08:30)
[2024-07-02] MEDS: FLOMAX 0.4 MG PO (08:30)
[2024-07-02] MEDS: BUSPAR 7.5 MG PO ×2 (08:30→21:03)
[2024-07-02] MEDS: FEOSOL 325 MG PO (08:30)
--- NOTE | 2024-07-02 09:19 | PN.CDI ---
CDI
- -
CDI:
Physician Documentation Request
Admit Date: 06/28/24 19:30
Dear Doctor Carl,
Please review the following and provide your response in the progress notes.
Clinical Indicators:
Documentation includes the diagnosis of malnutrition. Other clinical indicators are:
Documented per H&P 'cachexia'
Documented per H&P and progress notes 06/29-07/01,' Weight Loss with Protein Calorie Malnutrition Consult Dietary...'
Nutrition consult 06/30,'... He states that he lost 10 lbs over the past year. This is a 6.7% BW loss over one year (insignificant). He states that he has trouble chewing and swallowing but did not elaborate..'
To ensure the quality of the medical record, based on the above information and the recognized standards for malnutrition , could you please verify in your progress notes which of the following responses best reflects the patient's nutritional
status:
Malnutrition is/was present and is a clinical diagnosis (please provide additional support in the medical record)
After careful study Malnutrition has been ruled out
Other (please specify)
[place] Criteria (ACP Hospitalist 2017)
2 or more criteria must be present for either
non severe or severe malnutrition
Note that the criteria differs related to the
presence of an acute or chronic illness
Acute Illness Chronic Illness
Energy Intake Non Severe: <75% for >7 days Non Severe: <75% for >1 month
Severe: <50% for >5 days Severe: <75% for >1 month
Weight Loss Non Severe: 1-2% over 1 week Non Severe: 5% over 1 month
5% over 1 month 7.5% over 3 months
7.5% over 3 months 10% over 6 months
1 year N/A 20% over 1 year
Severe: >2% over 1 week Severe: >5% over 1 month
>5% over 1 month >7.5% over 3 months
>7.5% over 3 months >10% over 6 months
1 year N/A >20% over 1 year
Body Fat Non Severe: Mild Decrease Non Severe: Mild Loss
Severe: Moderate Decrease Severe: Severe Loss
Muscle Mass Non Severe: Mild Decrease Non Severe: Mild Loss
Severe: Moderate Decrease Severe: Severe Loss
Fluid Accumulation Non Severe: Mild Accumulation Non Severe: Mild Accumulation
Severe: Moderate to severe Severe: Moderate to severe
accumulation accumulation
Reduced Agency Sales Director Strength Non Severe: N/A Non Severe: N/A
Severe: Measurably reduced Severe: Measurably reduced
Use of terms such as suspected, likely, concern for, or probable (associated with a specific diagnosis that is being evaluated, monitored, or treated as if it exists) are acceptable and can be coded in the inpatient setting, when documented at the
time of discharge.
Thank you,
Edie Flowers RN
CDI Specialist
[place]
Please use your independent medical judgment in providing your response.
--- NOTE | 2024-07-02 09:31 | PN.CDI ---
CDI
- -
CDI:
Physician Documentation Request
Admit Date: 06/28/24 19:30
Dear Doctor Carl,
Please review the following and provide your response in the progress notes.
Clinical Indicators:
Pt admitted with Acute on Chronic CHFpEF exacerbation
There is potentially conflicting documentation in the record regarding the stage of CKD.
Documented per H&P and progress notes 06/29 -07/01 ,' CKD Stage IIIB...'
Nephrology consult and progress notes,'chronic kidney disease baseline stage IV. Creatinine 2.6 on admission with records showing creatinine of 2.3 in 2022...'
Due to conflicting documentation please clarify which of the following accurately represents the patient's renal status:
CKD 4
CKD 3b ( no change in documentation)
Other ( please specify)
Stages of Chronic Kidney Disease*
Level Description GFR
G1 Normal or High >90
G2 Mildly decreased 60-89
G3a Mildly to moderately decreased 45-59
G3b Moderately to severely decreased 30-44
G4 Severely decreased 15-29
G5 Kidney failure <15
Use of terms such as suspected, likely, concern for, or probable (associated with a specific diagnosis that is being evaluated, monitored, or treated as if it exists) are acceptable and can be coded in the inpatient setting, when documented at the
time of discharge.
Thank you,
Edie Flowers RN
CDI Specialist
[place] [employer]
Please use your independent medical judgment in providing your response.
*Source: Kidney Disease: Improving Global Outcomes (KDIGO) 2012
[2024-07-02] MEDS: ATIVAN 1 MG IV (09:41)
--- NOTE | 2024-07-02 10:09 | PTCARENOTE ---
Addendum entered by Ana Stone RN 07/02/24 15:18:
cellulitis noted on right calf, foam D/I,
Original Note:
received patient this am sitting up in chair, patient is pale, weak, eating breakfast, patient stated at times that he has difficulty swallowing. monitor shows Afib, VSS. IV heparin @ 900units/hr via right forearm. patient went down for MRI and
started to get anxious, MRI called to floor, I TT Raghu Bravo RN, went to MRI to give patient Ativan IV as ordered. IV heparin was also stopped for MRI as per Dr. Henry.
--- NOTE | 2024-07-02 11:19 | W.PN.PUL3 ---
Today's Communication / Plan
-
Continue cardiac management/diuretics
Cytology will be followed
Oxygen has been weaned off
Increase physical activity as tolerated
GI workup ongoing
Patient has to follow-up in our office
Sign off
Assessment
-
Assessment: 88-year-old male with a past medical history of hypertension, mitral regurgitation, gastritis, anemia, DM type II, history of urinary retention requiring Ny catheter, A-fib on Eliquis, anxiety/depression, chronic HFrEF, CKD, BPH,
pulmonary JOANNE, bronchiectasis who presents from [facility] for worsening SOB. His SOB has been worsening for few weeks and patient is aware that he has a right-sided pleural effusion. He had a CT chest at an outside facility
1 week ago that revealed this right-sided pleural effusion. He also has significant lower extremity edema. He has been losing weight over the last several months and has been missing appointments with ID for his JOANNE treatment. Denies fevers,
sweats or chills. Initial vitals showed he was afebrile to 97.4 �F, pulse rate 95, respiratory rate 28, BP 126/64 and saturating 95% on room air. Initial labs showed WBC 5.9, Hb 8.8, absolute eosinophil count 300, creatinine 2.7, BUN 113, troponin
0.077, and proBNP 24,200. CXR showed a moderate right-sided pleural effusion. He was admitted to the IVU and started on diuresis. Due to patient's SOB, pulmonary service now consulted for additional management/recommendations.
Chronic conditions PORTER HEAD: Hypertension, mitral regurgitation, gastritis, anemia, DM type II, history of urinary retention requiring Ny catheter, A-fib on Eliquis, anxiety/depression, chronic HFrEF, CKD, BPH, pulmonary JOANNE, bronchiectasis
Impression:
#Acute respiratory failure with hypoxia
#Acute on chronic HFpEF
#Right-sided pleural effusion
Status post thoracentesis 06/30/2024: Transudate.
#Left lower extremity cellulitis
#Right middle lobe + lingula bronchiectasis/nodular opacities due to pulmonary JOANNE (supposed to be on azithromycin TIW + ethambutol, started 02/01/2023)
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
#Former tobacco smoker (quit smoking >30 years ago, with a [id number] history)
#CAD
#Elevated troponin likely due to demand ischemia in the setting of DAVON (troponin peaked at 0.085 on 06/29/2024)
#A-fib with history of bradycardia
#Mitral regurgitation
#Anemia
#DAVON on CKD with uremia (BUN: 113 on 06/28/2024)
#CBD mass
#RUQ abdominal tenderness likely due to CBD mass
#Left-sided renal mass
#DM type II (HbA1C: 6.9 on 06/29/2024)
Plan:
- Patient's constellation of symptoms is likely due to to acute decompensated heart failure in setting of JOANNE and pulmonary emphysema
- Diuretics per nephrology/cardiology
- Maintain net negative fluid balance as tolerated-BUN increasing. Diuretics on hold for today.
- Status post right thoracentesis: 06/30/2024-transudative likely due to heart failure. Cytology pending.
Echocardiogram: 06/30/2024-LVEF 40 to 45%. Hypokinesis in the inferior septal, inferior and anteroseptal foss. Biatrial enlargement. Severe mitral regurgitation. Moderate TR. Worse compared to prior in March 2022
-
- His Eliquis has been changed to heparin drip as he may need an ERCP with EUS with CBD mass biopsy versus a kidney biopsy given the abnormality seen on recent CT abdomen/pelvis (06/28/24)
-For MRCP. Pending
-
- He should follow up with ID s/p discharge with Dr. Maynard to discuss treatment for his MAC as he had skipped ethambutol for few weeks, per the patient
- Although he has paraseptal emphysema, he does not use inhalers and at baseline has no respiratory symptoms-on spirometry mild airflow obstruction June 2022. FEV1 near normal.
Not bronchospastic on exam.
- Maintain SpO2 >90-94% with supplemental O2 as needed
- prn nebulized bronchodilators
- Incentive spirometer encouraged q1hr while awake
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
this will be an ongoing discussion
- Pain control
- DVT ppx: heparin gtt
No additional pulmonary recommendations. At this point I will sign off. Continue with cardiac management.
After discharge, he should continue following up with us in the office as last visit was on 12/24/2023 with FLORIDA Jones.
Data:
CT abdomen/pelvis 06/28/2024:
Slightly increased moderate to large right pleural effusion and new trace left pleural effusion.
17 mm rounded soft tissue attenuation in the region of the distal common bile duct. The common bile duct is distended, measuring 14 mm. Tiny focus of pneumobilia in the left lobe, which is much less than that seen on the prior study from November
2022. Findings suspicious for obstructing mass or noncalcified choledocholithiasis.
Cholelithiasis with mild hydropic gallbladder. No definitive CT evidence to suggest acute cholecystitis.
No obstructive uropathy. Renal cysts. Slightly hyperdense heterogeneous 2.2 cm mass projecting from the lower pole of the left kidney. Few tiny calcifications. Benign or malignant. Follow-up imaging may be considered for further evaluation if
indicated. This was not specifically mentioned in the original preliminary report.
Diverticulosis. No definitive evidence to suggest acute diverticulitis.
Third spacing.
Subjective Data
-
Date of Service:
Date of Service: July 02, 2024
Chief Complaint: Pulmonary Follow Up (Hypoxemic respiratory failure/pleural effusion)
Subjective:
No new pulmonary complaints
Denies increased cough or phlegm production
Oxygen supplementation has been discontinued
Review of Systems
Cardiopulmonary: Dyspnea and Dyspnea on Exertion
Objective Data
Data Reviewed
Vital Signs / I&O / Oxygen:
Vital Signs
Temp Pulse Resp BP Pulse Ox
97.6 F 88 16 121/66 94
07/02/24 07:13 07/02/24 08:29 07/02/24 07:13 07/02/24 07:12 07/02/24 08:30
Intake and Output
07/01/24 07/02/24 07/03/24
06:59 06:59 06:59
Intake Total 440 / 440 400 / 400
Output Total 1475 / 1475 200 / 200
Balance -1035 / -1035 200 / 200
SaO2 94
Nasal Cannula flow liters per 2
minute
Physical Exam
General: Comfortable
HEENT: Normocephalic
Respiratory: Crackles
GI: Soft and Non Distended
Neurology: Awake, AO x 3 and No Motor Deficits
Skin: Warm
Labs/Micro/Reports
Lab Data
07/02/24 05:12
07/02/24 05:12
Laboratory Results
07/01/24 07/01/24 07/02/24
16:31 22:46 05:12
APTT 88.0 H 103.3 H 133.4 H
Microbiology
06/30/24 14:00 Pleural Fluid Body Fluid Culture - Preliminary
No Growth After 18-24 Hours
06/30/24 14:00 Pleural Fluid Gram Stain - Preliminary
06/30/24 14:00 Pleural Fluid Fungal Culture - Preliminary
Culture in progress.
Positive cultures are reported as soon as detected.
Final report to follow in four to five weeks.
[2024-07-02] MEDS: NSS (PRESERVATIVE FREE) 0.5 ML IV (12:18)
[2024-07-02] MEDS: ZITHROMAX 500 MG PO (12:18)
[2024-07-02] MEDS: LASIX 40 MG IV ×2 (12:18→16:03)
[2024-07-02] MEDS: MYAMBUTOL 1200 MG PO (12:19)
[2024-07-02 12:20] VITALS: BP 115/62
--- NOTE | 2024-07-02 12:22 | PTCARENOTE ---
patient returned from MRI, very lethargic but arousable. restarted IV heparin at 900units/hr, will obtain PTT at 1830 tonight.
[2024-07-02] MEDS: ANCEF 10 IV ×2 (12:30→21:03)
[2024-07-02] MEDS: FLUSH (NSS) 1 FLUSH IV (12:31)
[2024-07-02] MEDS: NOVOLOG FLEXPEN-LOW RESISTANCE 2 UNITS SC (12:45)
[2024-07-02 12:46] LABS: Glucose - Point of Care 216 mg/dl (70-99)
--- NOTE | 2024-07-02 13:27 | PTCARENOTE ---
patient more awake, up OOB to chair. waiting to eat lunch.
--- NOTE | 2024-07-02 13:55 | W.PN.NEPH.PH ---
Today's Communication / Plan
-
Continue Lasix
Assessment/Plan
-
88 y/o male past medical history of A-fib, CHF, DM, CKD, COPD and JOANNE who presents with shortness of breath. Patient reports increasing shortness of breath over the past few months. He had a Chest CT at an outside facility last week which revealed
a right pleural effusion. Patient also reports significant lower extre
Impression.
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 Creatinine 2.6 on admission with records showing creatinine of 2.3 in 2022
CHF with pleural effusion EF 50% as of 2022 record
Lower extremity edema anasarca
Hypertension
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
Plan.
follow BMP
Daily weights
Lasix restarted twice daily.
MRI noted.
-
-
Date of Service: July 02, 2024
CC / HPI / ROS
-
Chief Complaint:
DAVON
History of Present Illness:
DAVON/Cr stable 2.7�2 point
diuresing with IV lasix for decompensated HFpEF
BP stable
Review of Systems:
no CP
on supplemental O2
weights down significantly
Labs
-
Labs:
WBC 5.0 10^3/uL (4.8-10.8) 07/02/24 05:12
RBC 3.43 10^6/uL (4.70-6.10) L 07/02/24 05:12
Hgb 9.9 g/dL (13.0-18.0) L 07/02/24 05:12
Hct 29.9 % (39.0-52.0) L 07/02/24 05:12
Plt Count 169 10^3/uL (130-400) 07/02/24 05:12
Sodium 140 mmol/L (135-145) 05/07/25 05:12
Potassium 3.9 mmol/L (3.5-5.1) 07/02/24 05:12
Chloride 104 mmol/L (98-107) 07/02/24 05:12
Carbon Dioxide 27 mmol/L (22-30) 07/02/24 05:12
BUN 97 mg/dl (9-20) H 07/02/24 05:12
Creatinine 2.4 mg/dL (0.7-1.3) H 07/02/24 05:12
eGFR 25.32 07/02/24 05:12
Glucose 146 mg/dl (70-99) H 07/02/24 05:12
Calcium 8.9 mg/dl (8.4-10.2) 07/02/24 05:12
Kso-A-Hccpwlogdqt Pept 61258 pg/ml 06/28/24 17:01
Albumin 3.0 g/dl (3.5-5.0) L 07/02/24 05:12
Physical Exam
-
Vital Signs:
Vital Signs
Temp Pulse Resp BP Pulse Ox
97.5 F 86 12 115/62 95
07/02/24 12:22 07/02/24 12:20 07/02/24 12:22 07/02/24 12:20 07/02/24 12:22
Respiratory:: Bilateral: Coarse and Bilateral: Rhonchi and Right: Rales
Lung Excursion:: Normal
Abdomen:: Distended and Tender
Bowel Sounds:: Normal
Extremity Edema:: None: Bilateral:
--- NOTE | 2024-07-02 15:06 | W.PN.HOSP.TC ---
Addendum entered and electronically signed by John Henry MD 07/02/24 17:41:
Persistent atrial fibrillation
After careful study Malnutrition has been ruled out
CKD 3b-4 - unclear at this point
Original Note:
Today's Communication/Plan
-
diuretics, monitor reparatory status; cards recs
monitor wbc, fever curve, abd pain
surg consulted
Assessment / Plan
Assessment / Plan
Acute on Chronic HFpEF
-Consult Cardiology
-Continue Lasix 40mg IV BID
- Echo - severe MR
-thoracentesis today, f/u Lytes criteria, Cyto
-Monitor Is&Os and Daily Weights
#Pleural Effusion
-F/u thora labs, cyto
#Respiratory Distress
component of CHF/ILD/Pleural Effusion
-thora as above
-pulm consulted
-diuresis
eventual f/u to treat JOANNE�continue azithromycin
Left lower ext cellulitis
continue Ancef for now
Weight Loss with Protein Calorie Malnutrition
-Consult Dietary
Right Upper Quadrant Abdominal Tenderness
- Abd/Pelvis CT: Limited by lack of intravenous contrast.
17 mm rounded soft tissue attenuation in the region of the distal common bile duct. The common bile duct is distended, measuring 14 mm. Tiny focus of pneumobilia in the left lobe, which is much less than that seen on the prior study from November
2022. Findings suspicious for obstructing mass or noncalcified choledocholithiasis.
Cholelithiasis with mild hydropic gallbladder. No definitive CT evidence to suggest acute cholecystitis.
-ordered MRCP - equivocal
-Gen Surg consulted
Permanent Atrial Fibrillation
-Continue Eliquis for anticoagulation
Essential Hypertension
-Hold Lisinopril
Hyperlipidemia
-Continue atorvastatin
Diabetes Mellitus, Type II
-Hold Glipizide
-Check HgbA1c 6.9
-Monitor sugar and continue coverage insulin
CKD Stage IIIB
-Creatinine slightly above baseline with significantly elevated BUN
-Monitor closely while on diuretics
- Use of IV Lasix for CHF cautiously in pt with prerenal azotemia based on BUN to Creat ratio.
Emphysema / COPD
-Patient does not appear to be on any inhalers as outpatient
JOANNE
-Continue azithromycin and ethambutol
Anxiety / Depression
-Continue escitalopram and temazepam
Hypokalemia
� Monitor and replete
GERD
-Continue Protonix
BPH
-Continue Flomax
DVT proph: Eliquis
Code Status: DNR
More than 30 minutes spent in discharge including
Final examination of the patient
Summarizing hospital stay
Instructions for continuing care to all relevant caregivers
Preparation of discharge records, prescriptions, and referral forms
Total time spent (in minutes): 36
Anticipated Discharge: > 48 hours
Subjective/Interval History
-
Date of Service: July 02, 2024
no acute events overnight
Objective Data
-
Labs:
Laboratory Results
07/02/24 07/02/24 07/02/24
05:12 12:50 18:30
WBC 5.0
Hgb 9.9 L
Hct 29.9 L
Plt Count 169
APTT 133.4 H Cancelled Pending
Sodium 140
Potassium 3.9
Chloride 104
Carbon Dioxide 27
BUN 97 H
Creatinine 2.4 H
Glucose 146 H
Calcium 8.9
Total Bilirubin 0.8
AST 25
ALT < 10
Alkaline Phosphatase 105
Vital Signs:
Vital Signs
Temp Pulse Resp BP Pulse Ox
97.5 F 86 12 115/62 95
07/02/24 12:22 07/02/24 12:20 07/02/24 12:22 07/02/24 12:20 07/02/24 12:22
I&O
07/01/24 07/02/24 07/03/24
06:59 06:59 06:59
Intake Total 440 / 440 400 / 400
Output Total 1475 / 1475 200 / 200
Balance -1035 / -1035 200 / 200
Review of Systems
-
History Source: Patient
All other systems: Not reviewed unless documented
Physical Exam
-
General: Well Developed, Well Nourished, Respiratory Distress, Appears in Distress and Conversant
HEENT: Normocephalic, Atraumatic and Moist Mucous Membranes
Respiratory: Wheezes (end expiratory), Rales (bibasilar) and Decreased Breath Sounds (rt lower lung)
Cardiac: S1/S2, Irregular Rhythm and Murmur (2/6sem)
GI: Soft, Nontender and Nondistended
Musculoskeletal: No Clubbing, No Cyanosis, Edema, Right Lower Extrem (1+) and Edema, Left Lower Extrem (1+)
Skin: Rash (cellulitic changes left lower leg)
Neuro: Awake, Alert and Oriented
Data Reviewed
-
Diagnostic Radiology: Report Reviewed by me
CT Scan: Report Reviewed by me
MRI: Report Reviewed by me
Labs: Labs Reviewed by me
[2024-07-02 15:40] VITALS: BP 97/61
--- NOTE | 2024-07-02 16:06 | W.PN.CARDCBS ---
Addendum entered and electronically signed by Nicolas Logan MD 07/02/24 16:29:
I saw and examined the patient.
The SPRAY WORKER or PA's note was reviewed and I agree with the note.
Comment: General: Well developed, well nourished in NAD.
Neck: Supple, no JVD, HJR, carotids +2 B/L, no bruits bilaterally.
Heart: Non displaced PMI, irregular, no murmurs, No S3, S4, no rubs.
Lungs: Scattered rhonchi
Extremities: No clubbing, cyanosis or edema bilaterally.
Neuro: Grossly nonfocal, awake, alert and oriented x3.
Remains on IV heparin with workup of bile duct mass in progress. Eventually changed back to Eliquis. Weight is up but has been diuresing and renal function stable. Continue IV Lasix.
Original Note:
Today's Communication / Plan
-
General surgery to see patient
Weight up today, but has been diuresing and Cre stable
Will need to follow up with his primary asic design engineer for new severe MR
Impression / Plan
-
PCP: Dr. Vinny Rosenthal
Cardiology: Dr. Crews [phone]
Impression:
Admitted with CHF and weight loss 06/28/24
Acute hypoxic respiratory insufficiency
Acute on chronic HFpEF
Preserved echo by last known echo 03/2022
Pleural effusion present previously and currently, moderate to large
Elevated Troponin
Permanent Afib
Chronic Eliquis OAC
Moderate MR by echo 04/24/22, severe eccentric MR by echo 06/30/2024
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
Severe coronary atherosclerosis by CT scan as outpatient 05/2024
COPD/emphysema/bronchiectasis/JOANNE
DAVON on CKD 4
New mass detected chronic bile duct-abdominal discomfort
Lower left renal hyperdense mass
Hypertension
Hyperlipidemia
DM 2
NSVT on tele 07/01/24 AM
Hypokalemia
Echo 04/24/2022: Left ventricular ejection fraction 50%. Normal RV. Moderate MR. Mild AI. Mild to moderate TR. PA pressure 48 mmHg.
Echo 06/30/24: EF 40 to 45%, biatrial enlargement, severe eccentric MR, moderate TR
Plan:
-Patient came to the ER from [facility] with SOB and was admitted with CHF. Patient followed by Dr. Crews at [facility] because they go to [facility], but when given a choice between [facility] and [facility] by EMS the patient chose [facility]. I
called Dr. Crews's office to get records 06/30/24 and they are now reviewed and summarized within this note 07/01/24. Patient was last seen by Dr. Crews 04/1923, he was a no-show for her 04/2024 visit. No previous echo.
-Weight is up 2 lbs overnight despite ongoing Lasix 40 mg IV BID. Cre down to 2.4 on 07/02/24 on labs reviewed by me. Patient was taking Lasix 60 mg AM/40 mg PM prior to admission.
-EF now down to 40-45% and now severe eccentric MR compared to last echo from 2022. Patient is not a candidate for ischemic work-up at this time and should follow up with his primary asic design engineer pending the outcome of this admission
-Outpatient dose of lisinopril 20 mg daily is on hold due to DAVON
-New to Toprol XL 12.5 mg daily and tolerating all doses thus far.
-SGLT2 contraindicated at this time given renal function
-Patient with known persistent to permanent Afib. Previously on sotalol, but stopped due to being in permanent Afib since 2023.
-Outpatient dose of Eliquis 2.5 mg BID (age 88, 2.6) is on hold for possible procedure. Patient is being bridged with Heparin gtt.
-Patient with new bile duct mass and renal mass. Patient with right-sided pleural effusion and plan is for thoracentesis, await cytology and pathology. Scheduled for MRCP 07/01/24.
-Troponin peaked at 0.085 and will be managed as a nonischemic myocardial injury Troponin elevation.
-LDL 102 and outpatient dose of atorvastatin 20 mg daily has been continued.
-Patient with 13 beat run of NSVT on 07/01/24 in the setting of hypokalemia. No additional ectopy on tele review by me 07/02/24.
HPI: He is complicated and he presents feeling very poorly with shortness of breath and symptoms/exam and testing consistent with heart failure previously with normal left ventricular ejection fraction. He has known atrial fibrillation which we
believe currently has been persistent/chronic and he is on oral anticoagulation. He also has significant abdominal discomfort for which he underwent CT scan with a new mass detected chronic bile duct and kidney. He has minimal troponin elevation
which is already started to decrease and more likely secondary to non-SD troponin elevation given degree of illness. He in addition has chronic renal dysfunction followed by nephrology with worsening BUN noted. COPD/emphysema/bronchiectasis/JOANNE
followed by pulmonary (Dr. Gutierrez). He tells me he feels terrible. Oxygenation is stable.
Progress Note - Coffee Sampler
Subjective
Date of Service: July 02, 2024
No chest pain
Objective
Labs:
07/02/24 05:12
07/02/24 05:12
Labs
Hgb 9.9 g/dL (13.0-18.0) L 07/02/24 05:12
Hct 29.9 % (39.0-52.0) L 07/02/24 05:12
Plt Count 169 10^3/uL (130-400) 07/02/24 05:12
APTT Cancelled 07/02/24 12:50
Sodium 140 mmol/L (135-145) 07/02/24 05:12
Potassium 3.9 mmol/L (3.5-5.1) 07/02/24 05:12
BUN 97 mg/dl (9-20) H 07/02/24 05:12
Creatinine 2.4 mg/dL (0.7-1.3) H 07/02/24 05:12
Glucose 146 mg/dl (70-99) H 07/02/24 05:12
Vital Signs and I&O:
Vital Signs
Temp Pulse Resp BP Pulse Ox
97 F 91 14 97/61 97
07/02/24 15:39 07/02/24 16:03 07/02/24 15:39 07/02/24 16:03 07/02/24 15:39
Vital Signs
Temp Pulse Resp BP Pulse Ox
97 F 91 14 97/61 97
07/02/24 15:39 07/02/24 16:03 07/02/24 15:39 07/02/24 16:03 07/02/24 15:39
Intake & Output
06/30/24 07/01/24 07/02/24 07/03/24
06:59 06:59 06:59 06:59
Intake Total 440 / 440 440 / 440 400 / 400 108 / 108
Output Total 2150 / 2150 1475 / 1475 200 / 200
Balance -1710 / -1710 -1035 / -1035 200 / 200 108 / 108
Physical Exam
Physical Exam
GEN: NAD. AAOx3
HEENT: EOMI, wearing glasses
LUNGS: RA. No audible wheeze
CV: Afib on tele.
ABD: ND
EXT: Trace edema of B/L LE
NEURO: Gross non-focal
SKIN: No rash
--- NOTE | 2024-07-02 16:13 | CM ---
Reviewed chart. Met with Mr. Baltazar to review discharge plans. He states he is feeling the same. We reviewed that [facility] has accept the referral. Will need to see his current functional level to see if he will have any skilled
care needs. Prior to admission he resides alone in an apartment at [facility]. He uses the elevator to get to his apartment. Prior to admission he was independent with ambulation in the apartment and uses a scooter in the
community. He has a prescription plan and uses [facility]. Medical work-up in progress. The discharge plan is to return to his apartment at [facility] with [facility] when medically stable.
[2024-07-02 17:15] LABS: Glucose - Point of Care 293 mg/dl (70-99)
[2024-07-02] MEDS: NOVOLOG FLEXPEN-LOW RESISTANCE 3 UNITS SC (17:15)
[2024-07-02 19:36] VITALS: BP 99/58
--- NOTE | 2024-07-02 19:40 | PTCARENOTE ---
Assumed care of the pt @ 1900. Pt is AAOx3 A Fib on the monitor. VSS Hep gtt infusing @ 900 units/ HR. Py updated with POC verbalized understanding. Call [facility] within reach. Pt instructed to call prior to ambulation.
[2024-07-02] MEDS: RESTORIL 15 MG PO (21:04)
[2024-07-02 21:50] LABS: Glucose - Point of Care 293 mg/dl (70-99)
[2024-07-02 22:58] VITALS: BP 111/81
[2024-07-03] VITALS (8 sets, daily range): BP systolic 89–122; BP diastolic 45–91; BMI 21.4
[2024-07-03 02:42] LABS: Hematocrit 27.9 % (39.0-52.0); Hemoglobin 9.1 g/dL (13.0-18.0); Mean Corp Hgb Conc. 32.6 g/dL (33.0-37.0); Mean Corpuscular Hgb 28.4 pg (27.0-31.0); Mean Corpuscular Volume 87.2 fL (80.0-94.0); Mean Platelet Volume 11.4 fL (7.4-10.4); Platelet Count 159 10^3/uL (130-400); Red Cell Dist. Width 19.8 % (11.5-14.5); White Blood Cell Count 5.5 10^3/uL (4.8-10.8)
[2024-07-03] MEDS: HEPARIN 25000 UNITS/250 ML IV (02:45)
[2024-07-03 02:56] LABS: APTT 97.9 Sec (23.4-35.0)
[2024-07-03 03:10] LABS: ALT (SGPT) < 10 U/L (0-50); AST (SGOT) 24 U/L (17-59); Alkaline Phosphatase 109 U/L (38-126); Blood Urea Nitrogen 102 mg/dl (9-20); Calcium 9.1 mg/dl (8.4-10.2); Carbon Dioxide 31 mmol/L (22-30); Chloride 101 mmol/L (98-107); Estimated Creatinine Clearance 16 ml/min; Glucose 168 mg/dl (70-99); Sodium 140 mmol/L (135-145); Total Bilirubin 0.7 mg/dl (0.2-1.3); Total Protein 5.5 g/dl (6.3-8.2); eGFR 21.04
[2024-07-03 08:09] LABS: Glucose - Point of Care 178 mg/dl (70-99)
[2024-07-03] MEDS: NOVOLOG FLEXPEN-LOW RESISTANCE 1 UNITS SC ×2 (08:09→13:59)
[2024-07-03] MEDS: PROTONIX 40 MG PO (08:42)
[2024-07-03] MEDS: TOPROL XL 12.5 MG PO (08:42)
[2024-07-03] MEDS: FLOMAX 0.4 MG PO (08:42)
[2024-07-03] MEDS: BUSPAR 7.5 MG PO ×2 (08:43→21:18)
[2024-07-03] MEDS: FEOSOL 325 MG PO (08:43)
[2024-07-03] MEDS: LASIX 40 MG IV (08:43)
[2024-07-03] MEDS: LIPITOR 20 MG PO (08:43)
[2024-07-03] MEDS: LEXAPRO 20 MG PO (08:50)
--- NOTE | 2024-07-03 09:06 | W.PN.CARDCBS ---
Addendum entered and electronically signed by Nir Dean MD 07/03/24 11:26:
88-year-old man followed by Dr. Skinner admitted with acute heart failure with mildly reduced EF and severe mitral regurgitation, COPD, DAVON on CKD 4. Question of common bile duct mass, patient with recent MRCP. He is still very short of breath.
PMH: Permanent A-fib, MR as above, moderate pulmonary hypertension, coronary artery atherosclerosis by CT scan, COPD, CKD, hypertension, hyperlipidemia, diabetes, JOANNE
Current meds: IV heparin, atorvastatin, Zithromax 3 days a week, BuSpar, apixaban on hold, Lexapro, ethambutol, pantoprazole, Flomax, furosemide 40 IV twice daily, Ancef, insulin, metoprolol ER 12.5 daily
122/91, pulse 90, respiratory 20, afebrile, sats 94%, weight is 62 kg down 3.4 kg since admission, cachectic, lungs are relatively clear but diminished, loud MR murmur, JVD still elevated, 1+ edema
Hemoglobin 9.1, platelets 159, BUN and creatinine 102 and 2.8, troponin 0.084, proBNP was [id number] on June 28, [id number] in 2022,
Impression:
Admitted with CHF and weight loss 06/28/24
Acute hypoxic respiratory insufficiency
Acute on chronic HFpEF
Pleural effusion present previously and currently, moderate to large
Elevated Troponin
Permanent Afib
Chronic Eliquis OAC
Moderate MR by echo 04/24/22, severe eccentric MR by echo 06/30/2024
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
Severe coronary atherosclerosis by CT scan as outpatient 05/2024
COPD/emphysema/bronchiectasis/JOANNE
DAVON on CKD 4
New mass detected chronic bile duct-abdominal discomfort
Lower left renal hyperdense mass
Hypertension
Hyperlipidemia
DM 2
NSVT on tele 07/01/24 AM
Hypokalemia
Plan:
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
approaching the need for dialysis. This is likely the result of his severe mitral regurgitation. His JOANNE and COPD further worsen his dyspnea.
Theoretically, MitraClip is an option, but given his age, his frailty, COPD and other comorbid conditions the utility of this may be limited over the long-term.
I had a jewels discussion with him regarding his wishes. It seems he has a good understanding of his situation.
Furthermore, we will need guidance from surgery regarding whether or not findings of MRCP has any significant impact on his prognosis.
He indicated that he would likely opt for conservative therapy and aggressive treatment for his mitral regurgitation is probably not appropriate. He states that his current quality of life is not good, and I doubt this would substantially change
even with a successful MitraClip.
Based on this, I think that he needs to consider his goals of care. He is at [facility], and ultimately will likely need to transition to assisted living and possibly senior care.
For now, furosemide is on hold given creatinine and severe azotemia. Defer to renal. I am not certain that we can get his dyspnea under better control. I will recheck a proBNP in the a.m.
Currently he is on heparin, would recommend transition back to Eliquis if invasive procedures are not planned.
Original Note:
Today's Communication / Plan
-
Stop Heparin gtt now
Restart outpatient dose of Eliquis tonight
Holding Lasix for DAVON, but still with significant subjective SOB that could be from new CM, sev MR or deconditioning
Impression / Plan
-
PCP: Dr. Vinny Rosenthal
Cardiology: Dr. Crews [phone]
Impression:
Admitted with CHF and weight loss 06/28/24
Acute hypoxic respiratory insufficiency
Acute on chronic HFpEF
Preserved echo by last known echo 03/2022
Pleural effusion present previously and currently, moderate to large
Elevated Troponin
Permanent Afib
Chronic Eliquis OAC
Moderate MR by echo 04/24/22, severe eccentric MR by echo 06/30/2024
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
Severe coronary atherosclerosis by CT scan as outpatient 05/2024
COPD/emphysema/bronchiectasis/JOANNE
DAVON on CKD 4
New mass detected chronic bile duct-abdominal discomfort
Lower left renal hyperdense mass
Hypertension
Hyperlipidemia
DM 2
NSVT on tele 07/01/24 AM
Hypokalemia
Echo 04/24/22: Left ventricular ejection fraction 50%. Normal RV. Moderate MR. Mild AI. Mild to moderate TR. PA pressure 48 mmHg.
Echo 06/30/24: EF 40 to 45%, biatrial enlargement, severe eccentric MR, moderate TR
Plan:
-Patient came to the ER from [facility] with SOB and was admitted with CHF. Patient followed by Dr. Crews at [facility] because they go to [facility], but when given a choice between [facility] and [facility] by EMS the patient chose [facility]. I
called Dr. Crews's office to get records 06/30/24 and they are now reviewed and summarized within this note. Patient was last seen by Dr. Crews 05/15/23, he was a no-show for his 04/2024 visit. No previous echo.
-Weight is stable at 136 lbs on 07/03/24 and overall up 2 lbs in the last 48 hours despite ongoing Lasix 40 mg IV BID. Cre up to 2.8 on 07/03/24, patient was given his ordered dose of Lasix 40 mg IV 07/03/24 AM, but then placed on hold, orders placed by
me.
-Patient was taking Lasix 60 mg AM/40 mg PM prior to admission.
-Patient continues with subjective SOB even though he is down 8 lbs this admission. SOB could be due to worsening EF, sev MR or deconditioning.
-EF now down to 40-45% and now severe eccentric MR compared to last echo from 2022.
-Patient is not a candidate for ischemic work-up at this time and says he would not be interested in invasive testing or procedures. He should still follow up with his primary hand alterations tailor after this admission
-Patient is also not interested in MitraClip based on conversation 07/03/24.
-Patient was independent living at [facility] and he says his only family is a brother in [place]. Patient is a DNR. Recommend return to [facility] and ongoing goals of care discussions with his PCP and hand alterations tailor.
-Outpatient dose of lisinopril 20 mg daily is on hold due to DAVON
-New to Toprol XL 12.5 mg daily and tolerating all doses thus far.
-SGLT2 contraindicated at this time given DAVON
-Patient with known persistent to permanent Afib. Previously on sotalol, but stopped due to being in permanent Afib since 2023.
-Outpatient dose of Eliquis 2.5 mg BID (age 88, 2.6) was on hold for possible procedure, but patient is not interested in anything invasive so will switch back to Eliquis 07/03/24 PM, orders placed by me.
-Patient with new bile duct mass and renal mass, although MRCP did not suggest bile duct calculus or obstruction and renal images described only a left kidney cyst. The pathology of the right pleural fluid was negative for malignancy.
-Troponin peaked at 0.085 and will be managed as a nonischemic myocardial injury Troponin elevation.
-LDL 102 and outpatient dose of atorvastatin 20 mg daily has been continued.
-Patient with 13 beat run of NSVT on 07/01/24 in the setting of hypokalemia. No additional ectopy on tele review by me 07/03/24.
HPI: He is complicated and he presents feeling very poorly with shortness of breath and symptoms/exam and testing consistent with heart failure previously with normal left ventricular ejection fraction. He has known atrial fibrillation which we
believe currently has been persistent/chronic and he is on oral anticoagulation. He also has significant abdominal discomfort for which he underwent CT scan with a new mass detected chronic bile duct and kidney. He has minimal troponin elevation
which is already started to decrease and more likely secondary to non-AZ troponin elevation given degree of illness. He in addition has chronic renal dysfunction followed by nephrology with worsening BUN noted. COPD/emphysema/bronchiectasis/JOANNE
followed by pulmonary (Dr. Gutierrez). He tells me he feels terrible. Oxygenation is stable.
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
Subjective
Date of Service: July 03, 2024
He is still SOB despite diuresis
Objective
Labs:
07/03/24 02:33
07/03/24 02:33
Labs
Hgb 9.1 g/dL (13.0-18.0) L 07/03/24 02:33
Hct 27.9 % (39.0-52.0) L 07/03/24 02:33
Plt Count 159 10^3/uL (130-400) 07/03/24 02:33
APTT 97.9 Sec (23.4-35.0) H 07/03/24 02:33
Sodium 140 mmol/L (135-145) 07/03/24 02:33
Potassium 4.0 mmol/L (3.5-5.1) 07/03/24 02:33
BUN 102 mg/dl (9-20) H* 07/03/24 02:33
Creatinine 2.8 mg/dL (0.7-1.3) H 07/03/24 02:33
Glucose 168 mg/dl (70-99) H 07/03/24 02:33
Vital Signs and I&O:
Vital Signs
Temp Pulse Resp BP Pulse Ox
97.8 F 90 20 122/91 94
07/03/24 07:47 07/03/24 08:43 07/03/24 07:47 07/03/24 08:43 07/03/24 07:47
Vital Signs
Temp Pulse Resp BP Pulse Ox
97.8 F 90 20 122/91 94
07/03/24 07:47 07/03/24 08:43 07/03/24 07:47 07/03/24 08:43 07/03/24 07:47
Intake & Output
07/01/24 07/02/24 07/03/24 07/04/24
06:59 06:59 06:59 06:59
Intake Total 440 / 440 400 / 400 108 / 108 250 / 250
Output Total 1475 / 1475 200 / 200 200 / 200 300 / 300
Balance -1035 / -1035 200 / 200 -92 / -92 -50 / -50
Physical Exam
Physical Exam
GEN: NAD. AAOx3
HEENT: EOMI, wearing glasses
LUNGS: RA. No audible wheeze
CV: Afib on tele.
ABD: ND
EXT: Trace to +1 edema of B/L LE
NEURO: Gross non-focal
SKIN: No rash
: +Ny cath draining clear yellow urine
[2024-07-03 09:20] LABS: APTT 85.7 Sec (23.4-35.0)
--- NOTE | 2024-07-03 09:54 | CON.GI ---
Addendum entered and electronically signed by Nato Diaz MD 07/03/24 15:44:
I saw and examined the patient.
The DIESEL STATIONARY ENGINEER's note was reviewed and I agree with the note.
MRCP images, there appears to be mild to moderate diffuse intrahepatic bile duct dilation. MRCP imaging evaluation of the common hepatic and common bile duct somewhat limited as of motion artifact. In the superior head of the pancreas, the common
bile duct measures 9.9 mm. Fusiform dilation of the common bile duct or inferiorly within the head of the pancreas, with transverse dimension of 17 mm, as seen on image 9 of series 201. At the duodenal insertion, the common bile duct tapers, having
caliber 5 mm.
Given the limitation of significant motion artifact, there is no gross evidence for bile duct calculus. No gross evidence for a focal obstructing mass lesion.
plan
Patient is admitted with severe shortness of breath and was noted to have right-sided pleural effusion s/p thoracentesis. Continues to complain of shortness of breath-likely multifactorial-CHF/emphysema/ILD/JOANNE/ pleural effusion/ severe MR.
Currently following up with cardiology/pulmonary.
Requested by surgery for further evaluation of CBD abnormality with EUS . Liver test normal. Abdominal examination mild tenderness right upper quadrant. Patient's respiratory status needs to be optimized prior to EUS with sedation . will hold off
on EUS for now- will be at high risk . Please call us back once optimized and cleared by cardio/ pulmonary for sedation ( next week ).Eliquis needs to be held for 2 days prior to the procedure as well . Also will recommend medical team to have a
goals of care discussion prior to invasive testing/ surgical interventions with multiple medical co-morbidities .
Original Note:
Consultation
-
Date/Time Consultation Requested: 07/03/24 0830
Date/Time Consultation Performed: 07/03/24 1000
Requesting Provider: Jesus Avina MD
Performing Provider: [place] Starr, Nato Diaz MD
Reason for Consultation: bile duct abnormality
Medical History
Chief Complaint / HPI
Chief Complaint: abdominal tenderness
History of Present Illness:
Pt is an 88yo with hx CHF, COPD, CKD, NIDDM, GERD, HTN, hypercholesterolemia,afib on Eliquis, anxiety/depression,JOANNE on chronic antibiotics with onset of shortness breath and weight loss. Pt was also noted with RUQ tenderness. He has been followed
by primary team, cardiology, pulmonary and nephrology during admission. On admission he is noted with pleural effusion with tap of 2 liters on 06/30. He continued with shortness of breath today with plan for CXR to see if further effusion needs
drainage. As far as abdominal discomfort he completed CT with oral contrast only with moderate to large right pleural effusion and trace left effusion. There was noted a 17 mm rounded soft tissue attenuation in distal CBD. CBD is distended 14 mm
with pneumobilia in left lobe. less than prior study but Findings suspicious for obstructing mass or noncalcified choledocholithiasis.
Cholelithiasis with mild hydropic gallbladder. No definitive CT evidence to suggest acute cholecystitis.also noted renal mass benign vs malignant, diverticulosis, and third spacing. Further follow up MR abdomen with distended gallbladder with
stones/sludge, and mild wall thickening and edema. He was also noted with mild to moderate diffuse intrahepatic duct dilatation. Evaluation of the common hepatic and common bile duct somewhat limited as of motion artifact. In the superior head of
the pancreas, the common bile duct measures 9.9 mm. Fusiform dilation of the common bile duct or inferiorly within the head of the pancreas, with transverse dimension of 17 mm. At the duodenal insertion, the common bile duct tapers, having caliber
5 mm without calculus or obstruction with small to moderate effusion. Also noted cystic foci in pancreas up to 10mm, diverticulosis, b/l renal cysts.
At this time patient main complaint is shortness of breath. He does complaint of abdominal tenderness with palpation but no pain. He also noted recent nausea. He also had mild diarrhea. he denies dysphagia,GERD, constipation or rectal
bleeding. No hx eGD or colonoscopy in past. labs notable for normal LFT's, albumin 3, creat 2-3 with bun up to 102, hbg 8-9 with normal WBC and normal platelets. pleural fluid more c/w heart failure. echo 06/30 with mild LVH, EF 40-45 %, biatrial
enlargement, severe MR, moderate TR
Normal left ventricular size. Mild concentric left ventricular hypertrophy.
Moderately reduced left ventricular systolic function. Hypokinesis of the
inferoseptal, inferior and anteroseptal foss .. LV ejection fraction is 40-45%
by visual assessment.
Biatrial enalargement
Severe eccentric mitral regurgitation.
Moderate tricuspid regurgitation.
Compared to a prior echo from Mar 2022, which was reviewed, MR and EF are
slightly worse.
Past Medical History
Past Medical History: Arrhythmias (afib ), CHF, COPD (empysema/COPD), GERD, HTN, Hypercholesterolemia, NIDDM, Renal Failure (CKD), Psychiatric (anxiety/depression) and Other (JOANNE on chronic antibiotics, BPH, pleural effusion, LL cellulitis )
Past Surgical History: Other (hernia repair )
Social History
Tobacco: Former Smoker
Alcohol: Occasional
Drug: Marijuana (gummies )
Living: Other ([facility] )
Employment: Retired
Family History
Family History: Other (no family hx colon CA or polyps)
Allergies / Home Medications
Allergy/AdvReac Type Severity Reaction Status Date / Time
No Known Allergies Allergy Verified 09/09/22 13:17
�Medication �Instructions �Recorded
apixaban 2.5 mg tablet (Eliquis) 2.5 mg PO BID Blood clot 04/23/22
prevention/tx
atorvastatin 20 mg tablet 20 mg PO DAILY High cholesterol 04/23/22
buspirone 7.5 mg tablet 7.5 mg PO BID Mental Health/Anxiety 04/23/22
omeprazole 20 mg capsule,delayed 20 mg PO DAILY Gastrointestinal 04/23/22
release issue
temazepam 15 mg capsule 15 mg PO HS PRN sleep 04/23/22
escitalopram oxalate 20 mg tablet 20 mg PO DAILY 04/24/22
azithromycin 500 mg tablet 500 mg PO MOWEFR 06/28/24
ethambutol 400 mg tablet 1,200 mg PO MOWEFR 06/28/24
ferrous sulfate 325 mg (65 mg 325 mg PO DAILY 06/28/24
iron) tablet (iron)
fluticasone propionate 50 2 spray intranasal DAILY 06/28/24
mcg/actuation nasal
spray,suspension
furosemide 40 mg tablet (Lasix) 40 mg PO QPM 06/28/24
furosemide 40 mg tablet (Lasix) 60 mg PO DAILY 06/28/24
glipizide 5 mg tablet 5 mg PO DAILY 06/28/24
lisinopril 20 mg tablet 20 mg PO DAILY 06/28/24
tamsulosin 0.4 mg capsule 0.4 mg PO DAILY 06/28/24
Review of Systems
-
History Source: Patient
Constitutional: Reports Weight Loss (5 kg last 2 years )
EENT: Reports Other (dry mouth )
Respiratory: Reports Trouble Breathing
Cardiac: Reports No Symptoms
Abdomen/GI: Reports Abdominal Pain ('tenderness to touch'), Nausea and Diarrhea
: Reports No Symptoms
Skin: Reports No Symptoms
Neurological: Reports Weakness
Endocrine: Reports No Symptoms
Hematologic/Lymphatic: Reports No Symptoms
Vital Signs
Temp Pulse Resp BP Pulse Ox
97.8 F 90 20 122/91 94
07/03/24 07:47 07/03/24 08:43 07/03/24 07:47 07/03/24 08:43 07/03/24 07:47
Physical Exam
Exam
General: Other (elderly male with cachexia )
HEENT: Normocephalic and Anicteric
Respiratory: Other (decreased base right >left, short of breath with talking )
Cardiac: Regular Rhythm
GI: Soft, Tender (to touch diffuse ) and Distended
Musculoskeletal: No Clubbing, No Cyanosis and Edema
Skin: Warm and Dry
Neuro: Awake and Alert
Psych: Calm
Results
WBC 5.5 10^3/uL (4.8-10.8) 07/03/24 02:33
Hgb 9.1 g/dL (13.0-18.0) L 07/03/24 02:33
Hct 27.9 % (39.0-52.0) L 07/03/24 02:33
MCV 87.2 fL (80.0-94.0) 07/03/24 02:33
Plt Count 159 10^3/uL (130-400) 07/03/24 02:33
Absolute Neuts (auto) 4.6 10^3/uL (1.4-6.5) 06/30/24 04:37
APTT 85.7 Sec (23.4-35.0) H 07/03/24 08:37
Sodium 140 mmol/L (135-145) 07/03/24 02:33
Potassium 4.0 mmol/L (3.5-5.1) 07/03/24 02:33
Chloride 101 mmol/L (98-107) 07/03/24 02:33
Carbon Dioxide 31 mmol/L (22-30) H 07/03/24 02:33
BUN 102 mg/dl (9-20) H* 07/03/24 02:33
Creatinine 2.8 mg/dL (0.7-1.3) H 07/03/24 02:33
Calcium 9.1 mg/dl (8.4-10.2) 07/03/24 02:33
Total Bilirubin 0.7 mg/dl (0.2-1.3) 07/03/24 02:33
AST 24 U/L (17-59) 07/03/24 02:33
ALT < 10 U/L (0-50) 07/03/24 02:33
Alkaline Phosphatase 109 U/L (38-126) 07/03/24 02:33
Diagnostic Image Results:
07/02/24 MR Abdomen W/o & W Contrast
Examination is limited, with significant respiratory motion artifact.
The gallbladder is distended. Posterior dependent layer of decreased T2-weighted signal compatible with gallstones and/or sludge. Suggestion of mild gallbladder wall thickening and/or pericholecystic edema.
Mild to moderate diffuse intrahepatic bile duct dilation. There is dilation of the common bile duct as described. No convincing evidence for bile duct calculus or obstruction by MRI, although evaluation is limited.
Small to moderate right pleural effusion.
Scattered cystic foci seen throughout the pancreas, measuring up to 10 mm. In this 88-year-old patient, no further imaging follow-up is recommended.
Numerous colonic diverticula in the region of the sigmoid colon.
Bilateral renal cysts. 2 cm hyperdense cyst arising in the left kidney.
CT Abd/pel (oral only)-[facility] Only
Limited by lack of intravenous contrast.
Slightly increased moderate to large right pleural effusion and new trace left pleural effusion.
17 mm rounded soft tissue attenuation in the region of the distal common bile duct. The common bile duct is distended, measuring 14 mm. Tiny focus of pneumobilia in the left lobe, which is much less than that seen on the prior study from November
2022. Findings suspicious for obstructing mass or noncalcified choledocholithiasis.
Cholelithiasis with mild hydropic gallbladder. No definitive CT evidence to suggest acute cholecystitis.
No obstructive uropathy. Renal cysts. Slightly hyperdense heterogeneous 2.2 cm mass projecting from the lower pole of the left kidney. Few tiny calcifications. Benign or malignant. Follow-up imaging may be considered for further evaluation if
indicated. This was not specifically mentioned in the original preliminary report.
Diverticulosis. No definitive evidence to suggest acute diverticulitis.
Third spacing.
The examination was performed after-hours on an emergency basis, with initial preliminary interpretation provided by [facility].
06/30/24 Para Successful ultrasound-guided thoracentesis, yielding 2000 cc of clear yellow pleural fluid.
06/30/24 echo
Normal left ventricular size. Mild concentric left ventricular hypertrophy.
Moderately reduced left ventricular systolic function. Hypokinesis of the
inferoseptal, inferior and anteroseptal foss .. LV ejection fraction is 40-45%
by visual assessment.
Biatrial enalargement
Severe eccentric mitral regurgitation.
Moderate tricuspid regurgitation.
Compared to a prior echo from Mar 2022, which was reviewed, MR and EF are
slightly worse.
Prior GI Procedures:
EGD: none
Colonoscopy: none
Assessment / Plan
-
Pt is an 88yo with hx CHF, COPD, CKD, NIDDM, GERD, HTN, hypercholesterolemia,afib on Eliquis, anxiety/depression,JOANNE on chronic antibiotics with onset of shortness breath and weight loss. Pt was also noted with RUQ tenderness. He has been followed
by primary team, cardiology, pulmonary and nephrology during admission. On admission he is noted with pleural effusion with tap of 2 liters on 06/30. He is also noted with abdominal tenderness and asked to eval with abnormal CT multiple finding
with concern for with distal CBD density 14 mm, renal mass. follow up MRI with distended GB with stones, thickening, edema and abnormal CBD 9.9mm--17mm--5 mm and panc cysts. Labs notable for normal LFT's, albumin 3, creat 2-3 with bun up to 102,
hbg 8-9 with normal WBC and normal platelets. pleural fluid more c/w heart failure. echo 06/30 with mild LVH, EF 40-45 %, biatrial enlargement, severe MR, moderate TR
06/28 Ct abdomen with oral contrast only with moderate to large right pleural effusion and trace left effusion. There was noted a 17 mm rounded soft tissue attenuation in distal CBD. CBD is distended 14 mm with pneumobilia in left lobe. less than
prior study but Findings suspicious for obstructing mass or noncalcified choledocholithiasis.Cholelithiasis with mild hydropic gallbladder. No definitive CT evidence to suggest acute cholecystitis.also noted renal mass benign vs malignant,
diverticulosis, and third spacing.
07/02/24 MR abdomen with distended gallbladder with stones/sludge, and mild wall thickening and edema. He was also noted with mild to moderate diffuse intrahepatic duct dilatation. Evaluation of the common hepatic and common bile duct somewhat
limited as of motion artifact. In the superior head of the pancreas, the common bile duct measures 9.9 mm. Fusiform dilation of the common bile duct or inferiorly within the head of the pancreas, with transverse dimension of 17 mm. At the duodenal
insertion, the common bile duct tapers, having caliber 5 mm without calculus or obstruction with small to moderate effusion. Also noted cystic foci in pancreas up to 10mm, diverticulosis, b/l renal cysts.
-CT with possible CBD mass/MRI with abnormal CBD 9.9mm--17mm(inferior within head of pancreas)--5 mm
-pleural effusion s/p thora with continued shortness of breath
-renal mass
-CHF on admission
-increased troponin
-acute on chronic CKD
-wt loss cachexia/hypoalbuminemia
-cellulitis/LE edema
-anemia
other med problems:
-severe MR moderate TR
-afib on Eliquis
-COPD
-NIDDM
-GERD
-HTN
-hyperlipidemia
-BPH
-anxiety/depression
DNR
PLAN:Etiology of wt loss, cachexia concern for multi factorial process with CHF, CKD, severe MR and noted abnormal abdominal imaging
will review CT and MR with Dr. Diaz-- can consider EUS but not current not medically optimized as significant shortness of breath with talking will continue to follow for stability to consider further work up
agree with repeat CXR to check for recurrent effusion
Pt currently on IV heparin with Eliquis on hold - last dose 06/29
LFT's remain normal
await surgical input
-
-
Thank you for consultation and allowing me to participate in the patient's care. Please call the environmental economist GI physician during the after hours with any questions or concerns.
--- NOTE | 2024-07-03 10:42 | PTCARENOTE ---
received patient this am, lying in bed, patient feels 'SOB and weak' this am, right lung no air movement, MD's aware. o2 sat 94% on RA. IV heparin @ 1100units/hr via right forearm. monitor shows Afib, VSS.
[2024-07-03] MEDS: ANCEF 10 IV (11:06)
[2024-07-03] MEDS: FLUSH (NSS) 1 FLUSH IV ×2 (11:07→18:25)
--- NOTE | 2024-07-03 11:07 | PTCARENOTE ---
patient called out c/o being SOB , thirsty, and weak. patient requested that [place] cath be placed, #25mm placed. o2 sat on RA 94%. ice chips given to patient. warm blanket given and patient resting comfortably.
--- NOTE | 2024-07-03 11:26 | CON.GS ---
Addendum entered and electronically signed by Jesus Avina MD 07/03/24 12:40:
I saw and examined the patient.
The resident's note was reviewed and I agree with the note with the following corrections/additions:
Comment: Denies abd pain. Eating breakfast. Deneis issues with PO intake. Very mild ttp with deep palp to ruq. Imaging with CBD abnormality, not well defined. Recommend GI eval for possible EUS. Will follow peripherally
Original Note:
Consultation
-
Date/Time Consultation Requested: 07/02/2024 15:07
Date/Time Consultation Performed: 07/03/2024 10:25 AM
Requesting Provider: John Quinn
Performing Provider: Jesus Bourne
Reason for Consultation: Obstructing mass/ choledocholithiasis of common bile duct
Medical History
-
Chief Complaint: Shortness of breath
History of Present Illness:
88-year-old male, DNR with a past medical history of hypertension, mitral regurgitation, gastritis, anemia, DM type II, history of urinary retention requiring Ny catheter, A-fib on Eliquis, anxiety/depression, chronic HFrEF, CKD, BPH, pulmonary
JOANNE, bronchiectasis who presents from [facility] for worsening shortness of breath. He had a CT chest at an outside facility 1 week ago before his admission that revealed a right-sided pleural effusion. He also has significant
lower extremity edema and weight loss over the last several months and has been missing appointments with ID for his JOANNE treatment. Denies fevers, sweats or chills.
Initial vitals showed he was afebrile to 97.4 �F, pulse rate 95, respiratory rate 28, BP 126/64 and saturating 95% on room air.
Initial labs showed WBC 5.9, Hb 8.8, absolute eosinophil count 300, creatinine 2.7, BUN 113, troponin 0.077, and proBNP 24,200.
Patient has right upper quadrant tenderness, CT showed distention of common bile duct and findings suspicious for obstructing mass/ choledocholithiasis. MRI was ordered and examination was limited.
Nephrology was consulted for CKD.
Cardiology was consulted for LVEF of 40-45% and severe mitral regurgitation.
CXR showed a moderate right-sided pleural effusion and thoracocentesis performed on 06/30/24. He was admitted to the IVU and started on diuresis. Pulmonary consulted for SOB.
Due to patient's SOB, pulmonary service now consulted for additional management/recommendations.
Past Medical History
Past Medical History: Other (see HPI)
Past Surgical History: Hernia Repair
Social History
Tobacco: Former Smoker
Alcohol: None
Drug: Other (Marijuana Gummies)
Personal: Single
Living: Other (Independent apartment at [facility])
Employment: Retired
Family History
Family History: Reviewed & Not Pertinent
Allergies / Home Medications
Allergy/AdvReac Type Severity Reaction Status Date / Time
No Known Allergies Allergy Verified 09/09/22 13:17
�Medication �Instructions �Recorded �Confirmed �Type
apixaban 2.5 mg tablet (Eliquis) 2.5 mg PO BID Blood clot 04/23/22 06/28/24 History
prevention/tx
atorvastatin 20 mg tablet 20 mg PO DAILY High cholesterol 04/23/22 06/28/24 History
buspirone 7.5 mg tablet 7.5 mg PO BID Mental Health/Anxiety 04/23/22 06/28/24 History
omeprazole 20 mg capsule,delayed 20 mg PO DAILY Gastrointestinal 04/23/22 06/28/24 History
release issue
temazepam 15 mg capsule 15 mg PO HS PRN sleep 04/23/22 06/28/24 History
escitalopram oxalate 20 mg tablet 20 mg PO DAILY 04/24/22 06/28/24 History
azithromycin 500 mg tablet 500 mg PO MOWEFR 06/28/24 06/28/24 History
ethambutol 400 mg tablet 1,200 mg PO MOWEFR 06/28/24 06/28/24 History
ferrous sulfate 325 mg (65 mg 325 mg PO DAILY 06/28/24 06/28/24 History
iron) tablet (iron)
fluticasone propionate 50 2 spray intranasal DAILY 06/28/24 06/28/24 History
mcg/actuation nasal
spray,suspension
furosemide 40 mg tablet (Lasix) 40 mg PO QPM 06/28/24 06/28/24 History
furosemide 40 mg tablet (Lasix) 60 mg PO DAILY 06/28/24 06/28/24 History
glipizide 5 mg tablet 5 mg PO DAILY 06/28/24 06/28/24 History
lisinopril 20 mg tablet 20 mg PO DAILY 06/28/24 06/28/24 History
tamsulosin 0.4 mg capsule 0.4 mg PO DAILY 06/28/24 06/28/24 History
Review of Systems
-
History Source: Patient
All other systems: Negative unless noted
Respiratory: Cough and Trouble Breathing
A 10 point review of systems was completed, and was negative except as per HPI.
Physical Exam
Vital Signs
Temp Pulse Resp BP Pulse Ox
97.8 F 81 20 122/91 94
07/03/24 07:47 07/03/24 10:00 07/03/24 07:47 07/03/24 08:43 07/03/24 08:30
07/02/24 07/03/24 07/04/24
06:59 06:59 06:59
Actual Weight 62 kg 62 kg
Body Mass Index (BMI) 21.4
Lab Results
07/03/24 02:33
07/03/24 02:33
WBC 5.5 10^3/uL (4.8-10.8) 07/03/24 02:33
Hgb 9.1 g/dL (13.0-18.0) L 07/03/24 02:33
Hct 27.9 % (39.0-52.0) L 07/03/24 02:33
Plt Count 159 10^3/uL (130-400) 07/03/24 02:33
Abs Immat Gran (auto) 0.0 10^3/uL (0-0.05) 06/30/24 04:37
Neutrophils % 78.0 % (42.2-75.2) H 06/30/24 04:37
Physical Exam
Respiratory: Other (Decreased breath sounds bilaterally in bases of both lungs)
Cardiac: Regular Rhythm
GI: Soft, Tender (Tenderness to palpation of right upper quadrant tenderness) and Distended
Musculoskeletal: No Cyanosis, Edema (bilaterally lower extremities ) and No Edema
Skin: Warm and Dry
Neuro: Awake and Alert
Data Reviewed
-
CT Scan: Report Reviewed by me and Discussed with Physician
MRI: Report Reviewed by me and Discussed with Physician
Labs: Labs Reviewed by me and Discussed with Physician
Assessment / Plan
-
Right upper quadrant tenderness:
-Physical examination shows tenderness to palpation of the right upper quadrant
-Labs today show normal WBC, afebrile normal LFTs
- CT scan of abdomen/pelvis shows distention of common bile duct measuring 14 mm, findings suspicion for obstructing mass or noncalcified choledocholithiasis, no evidence to suggest acute cholecystitis
- MRI of the abdomen is limited with significant respiratory motion artifact
- Gastroenterology is following and are considering endoscopic ultrasound but patient is not medically optimized as he is still significantly short of breath, will wait till patient is stable, repeat chest x-ray to check for recurrent effusion
Acute on chronic HFpEF
Atrial fibrillation
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
- Creatinine is 2.8
- Furosemide is on hold
- Trend BMP, follow daily weights, started patient on 2 g sodium diet, fluid restriction
-Continue on metoprolol for rate control and keep heart rate less than 110
- Discussed the option of MitraClip but given age and frailty but patient is opted for conservative therapy
As per management of medical team:
- Pleural effusion
- Left lower extremity cellulitis
- Weight loss with protein calorie malnutrition
-Essential hypertension
- Hyperlipidemia
- Diabetes mellitus type 2
- Emphysema/COPD
- Anxiety depression
- Hypokalemia
- GERD
DVT prophylaxis is heparin
DNR
--- NOTE | 2024-07-03 11:47 | W.PN.NEPH.PH ---
Today's Communication / Plan
-
Discontinue Lasix
Assessment/Plan
-
88 y/o male past medical history of A-fib, CHF, DM, CKD, COPD and JOANNE who presents with shortness of breath. Patient reports increasing shortness of breath over the past few months. He had a Chest CT at an outside facility last week which revealed
a right pleural effusion. Patient also reports significant lower extre
Impression.
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 Creatinine 2.6 on admission with records showing creatinine of 2.3 in 2022
CHF with pleural effusion EF 50% as of 2022 record
Lower extremity edema anasarca
Hypertension
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
Plan.
follow BMP
Daily weights
Discontinue Lasix as renal function worsening
Clinically appears he has accumulation of his right pleural effusion likely need a thoracentesis
MRI noted.= CBD mass/GI and surgery following
Overall patient's severe MR/ CKD with recurrent thoracentesis prognosis guarded
-
-
Date of Service: July 03, 2024
CC / HPI / ROS
-
Chief Complaint:
DAVON
History of Present Illness:
DAVON/Cr
diuresing with IV lasix for decompensated HFpEF with worsening renal function
BP stable
Abdominal mass being worked up
Severe MR
Review of Systems:
no CP
on supplemental O2
Continues to complain of shortness of breath
Labs
-
Labs:
WBC 5.5 10^3/uL (4.8-10.8) 07/03/24 02:33
RBC 3.20 10^6/uL (4.70-6.10) L 07/03/24 02:33
Hgb 9.1 g/dL (13.0-18.0) L 07/03/24 02:33
Hct 27.9 % (39.0-52.0) L 07/03/24 02:33
Plt Count 159 10^3/uL (130-400) 07/03/24 02:33
Sodium 140 mmol/L (135-145) 07/03/24 02:33
Potassium 4.0 mmol/L (3.5-5.1) 07/03/24 02:33
Chloride 101 mmol/L (98-107) 07/03/24 02:33
Carbon Dioxide 31 mmol/L (22-30) H 07/03/24 02:33
BUN 102 mg/dl (9-20) H* 07/03/24 02:33
Creatinine 2.8 mg/dL (0.7-1.3) H 07/03/24 02:33
eGFR 21.04 07/03/24 02:33
Glucose 168 mg/dl (70-99) H 07/03/24 02:33
Calcium 9.1 mg/dl (8.4-10.2) 07/03/24 02:33
Kvs-C-Oehjkrilbvz Pept 36535 pg/ml 06/28/24 17:01
Albumin 3.0 g/dl (3.5-5.0) L 07/03/24 02:33
Physical Exam
-
Vital Signs:
Vital Signs
Temp Pulse Resp BP Pulse Ox
97.8 F 81 20 122/91 94
07/03/24 07:47 07/03/24 10:00 07/03/24 07:47 07/03/24 08:43 07/03/24 08:30
Respiratory:: Bilateral: Coarse and Bilateral: Rhonchi and Right: Rales
Lung Excursion:: Normal
Abdomen:: Distended and Tender
Bowel Sounds:: Normal
Extremity Edema:: None: Bilateral:
--- NOTE | 2024-07-03 11:51 | PTCARENOTE ---
chest xray completed.
--- NOTE | 2024-07-03 12:14 | PTCARENOTE ---
D/C'd IV heparin as ordered.
[2024-07-03 13:59] LABS: Glucose - Point of Care 191 mg/dl (70-99)
--- NOTE | 2024-07-03 14:36 | W.PN.HOSP.TC ---
Today's Communication/Plan
-
switch to zosyn
monitor respiratory status
holding iv lasix as per renal, patient does not want HD
resume eliquis
Assessment / Plan
Assessment / Plan
Acute on Chronic HFpEF
-Consult Cardiology
-Continue Lasix 40mg IV BID - holding on Lasix with DAVON
- Echo - severe MR
-thoracentesis today, f/u Lytes criteria, Cyto
-Monitor Is&Os and Daily Weights
#Pleural Effusion
-F/u thora labs, cyto
-Repeat cxr - with minimal worsening of rt pleural effusion, doubt able for thora at this time
#Respiratory Distress
component of CHF/ILD/Pleural Effusion
-thora as above
-pulm consulted
-diuresis
eventual f/u to treat JOANNE�continue azithromycin
-Repeat CXR - ?pneumonia
initiative zosyn, MRSA PCR
-azithromycin
Left lower ext cellulitis
completed cefazolin
-Abx as per above
Weight Loss with Protein Calorie Malnutrition
-Consult Dietary
Right Upper Quadrant Abdominal Tenderness
- Abd/Pelvis CT: Limited by lack of intravenous contrast.
17 mm rounded soft tissue attenuation in the region of the distal common bile duct. The common bile duct is distended, measuring 14 mm. Tiny focus of pneumobilia in the left lobe, which is much less than that seen on the prior study from November
2022. Findings suspicious for obstructing mass or noncalcified choledocholithiasis.
Cholelithiasis with mild hydropic gallbladder. No definitive CT evidence to suggest acute cholecystitis.
-ordered MRCP - equivocal
-Gen Surg consulted
-GI consulted - not optimized at this time for EUS, if does - then can perform EUS as per GI
Permanent Atrial Fibrillation
-Continue Eliquis for anticoagulation
Essential Hypertension
-Hold Lisinopril
Hyperlipidemia
-Continue atorvastatin
Diabetes Mellitus, Type II
-Hold Glipizide
-Check HgbA1c 6.9
-Monitor sugar and continue coverage insulin
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
-Creatinine slightly above baseline with significantly elevated BUN
-Monitor closely while on diuretics
- Use of IV Lasix for CHF cautiously in pt with prerenal azotemia based on BUN to Creat ratio.
-Patient does not want HD
Emphysema / COPD
-Patient does not appear to be on any inhalers as outpatient
JOANNE
-Continue azithromycin and ethambutol
Anxiety / Depression
-Continue escitalopram and temazepam
Hypokalemia
� Monitor and replete
GERD
-Continue Protonix
BPH
-Continue Flomax
DVT proph: Eliquis
Code Status: DNR
Total time spent on today's encounter was 50 minutes which included time spent in counseling the patient/family regarding diagnosis and treatment plan as listed above, goals of care, and symptom management. Case was discussed with nursing staff,
specialists, and care coordinators/case management. All labs and imaging personally reviewed by me. Remainder the time spent in detailed review of previous records, lab data, imaging, and other medical provider documentation.
Anticipated Discharge: > 48 hours
Subjective/Interval History
-
Date of Service: July 03, 2024
Still with right upper quadrant tenderness, short of breath
Objective Data
-
Labs:
Laboratory Results
07/03/24 07/03/24
02:33 08:37
WBC 5.5
Hgb 9.1 L
Hct 27.9 L
Plt Count 159
APTT 97.9 H 85.7 H
Sodium 140
Potassium 4.0
Chloride 101
Carbon Dioxide 31 H
BUN 102 H*
Creatinine 2.8 H
Glucose 168 H
Calcium 9.1
Total Bilirubin 0.7
AST 24
ALT < 10
Alkaline Phosphatase 109
Vital Signs:
Vital Signs
Temp Pulse Resp BP Pulse Ox
97.5 F 81 20 122/91 94
07/03/24 11:53 07/03/24 10:00 07/03/24 11:53 07/03/24 08:43 07/03/24 11:53
I&O
07/02/24 07/03/24 07/04/24
06:59 06:59 06:59
Intake Total 400 / 400 108 / 108 250 / 250
Output Total 200 / 200 200 / 200 300 / 300
Balance 200 / 200 -92 / -92 -50 / -50
Review of Systems
-
History Source: Patient
All other systems: Not reviewed unless documented
Data Reviewed
-
Diagnostic Radiology: Report Reviewed by me
CT Scan: Report Reviewed by me
MRI: Report Reviewed by me
Labs: Labs Reviewed by me
--- NOTE | 2024-07-03 15:01 | CM ---
Reviewed chart. Met with Mr. Baltazar to review discharge plans. He states he is feeling about the same. Prior to admission he resides alone in an apartment at [facility]. He uses an elevator to get to the second floor. Prior
to admission he was independent with ambulation in the apartment. He uses a scooter in the community. He has a prescription plan. Will need to see his current functional level to see if he will have any skilled care needs. Medical work-up in
progress. The discharge plan is to return home when medically stable.
[2024-07-03] MEDS: ZOSYN 50 IV (16:01)
--- NOTE | 2024-07-03 16:04 | PTCARENOTE ---
MRSA -A swab sent as ordered
[2024-07-03] MEDS: NOVOLOG FLEXPEN-LOW RESISTANCE 2 UNITS SC (17:26)
[2024-07-03 17:27] LABS: Glucose - Point of Care 221 mg/dl (70-99)
[2024-07-03] MEDS: ZOFRAN 4 MG IV (18:25)
--- NOTE | 2024-07-03 18:26 | PTCARENOTE ---
patient c/o of abdominal discomfort/nausea, TT hospitalist, Zofran IV given as ordered.
[2024-07-03] MEDS: RESTORIL 15 MG PO (21:17)
[2024-07-03] MEDS: ELIQUIS 2.5 MG PO (21:18)
[2024-07-03 22:02] LABS: Glucose - Point of Care 136 mg/dl (70-99)
[2024-07-04] VITALS (7 sets, daily range): BP systolic 92–106; BP diastolic 51–74; BMI 21.4; BMI 21.5
[2024-07-04] MEDS: ZOSYN 50 IV ×4 (02:52→23:59)
[2024-07-04 03:31] LABS: Hematocrit 31.7 % (39.0-52.0); Hemoglobin 10.3 g/dL (13.0-18.0); Mean Corp Hgb Conc. 32.5 g/dL (33.0-37.0); Mean Corpuscular Hgb 28.1 pg (27.0-31.0); Mean Corpuscular Volume 86.4 fL (80.0-94.0); Mean Platelet Volume 12.5 fL (7.4-10.4); Platelet Count 186 10^3/uL (130-400); Red Blood Cell Count 3.67 10^6/uL (4.70-6.10); Red Cell Dist. Width 19.8 % (11.5-14.5); White Blood Cell Count 5.6 10^3/uL (4.8-10.8)
[2024-07-04 03:41] LABS: APTT 34.1 Sec (23.4-35.0)
[2024-07-04 04:00] LABS: ALT (SGPT) < 10 U/L (0-50); AST (SGOT) 29 U/L (17-59); Albumin 3.5 g/dl (3.5-5.0); Alkaline Phosphatase 126 U/L (38-126); Blood Urea Nitrogen 102 mg/dl (9-20); Calcium 9.4 mg/dl (8.4-10.2); Carbon Dioxide 28 mmol/L (22-30); Chloride 100 mmol/L (98-107); Estimated Creatinine Clearance 15 ml/min; Glucose 131 mg/dl (70-99); Potassium 4.6 mmol/L (3.5-5.1); Sodium 139 mmol/L (135-145); Total Protein 6.3 g/dl (6.3-8.2); eGFR 19.37
[2024-07-04 04:05] LABS: NT-proBNP > 27000 pg/ml
--- NOTE | 2024-07-04 05:24 | PTCARENOTE ---
pt AFib on monitor. C/O discomfort/ distention RUQ. positive BS. OOB x 1 assist with RW
--- NOTE | 2024-07-04 07:17 | W.PN.CARDCBS ---
Addendum entered and electronically signed by Nir Dean MD 07/04/24 11:20:
88-year-old man followed by Dr. Crews admitted with acute heart failure with mildly reduced EF and severe mitral regurgitation, COPD, DAVON on CKD 4. Question of common bile duct mass, patient with recent MRCP. He is still very short of breath.
PMH: Permanent A-fib, MR as above, moderate pulmonary hypertension, coronary artery atherosclerosis by CT scan, COPD, CKD, hypertension, hyperlipidemia, diabetes, JOANNE
Current meds: Apixaban 2.5 mg twice daily, atorvastatin, Zithromax 3 days a week, BuSpar, Lexapro, ethambutol, pantoprazole, Flomax, furosemide 40 IV twice daily on hold, Ancef, insulin, metoprolol ER 12.5 daily, Zosyn
106/74, pulse 67, respiratory 18, afebrile, weight 62.3 kg, up 0.4 kg, cachectic, frail, complaining of nausea, diminished breath sounds right greater than left, neck veins up, coughing, loud MR murmur, some edema
Hemoglobin 10.3, BUN/creatinine 102 and 3, creatinine had been 2.8
Plan:
At this point, his heart failure is refractory related to severe mitral regurgitation, and his creatinine is up to 3, with a GFR that is probably 10 or less given his cachexia and lack of muscle mass.
I think it is unlikely that any options for his mitral valve are feasible. I think he is too frail with too much core morbidity for MitraClip.
Furthermore he says he is 'done'. He says 'if I had a pill I would take it'.
I discussed at some length with the patient and his nephew, who lives in [facility]. They are open to a hospice consult. I think hospice would be appropriate.
We will follow at a distance for now pending determination regarding level of care.
Thoracentesis for comfort?
Original Note:
Today's Communication / Plan
-
Continue to hold lasix
Creat up to 3.0.
Continue goals of care conversations.
Impression / Plan
-
PCP: Dr. Vinny Rosenthal
Cardiology: Dr. Crews [phone]
Impression:
Admitted with CHF and weight loss 06/28/24
Acute hypoxic respiratory insufficiency
Acute on chronic HFpEF
Preserved echo by last known echo 03/2022
Pleural effusion present previously and currently, moderate to large
Elevated Troponin
Permanent Afib
Chronic Eliquis OAC
Moderate MR by echo 04/24/22, severe eccentric MR by echo 06/30/2024
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
Severe coronary atherosclerosis by CT scan as outpatient 05/2024
COPD/emphysema/bronchiectasis/JOANNE
DAVON on CKD 4
New mass detected chronic bile duct-abdominal discomfort
Lower left renal hyperdense mass
Hypertension
Hyperlipidemia
DM 2
NSVT on tele 07/01/24 AM
Hypokalemia
Echo 04/24/22: Left ventricular ejection fraction 50%. Normal RV. Moderate MR. Mild AI. Mild to moderate TR. PA pressure 48 mmHg.
Echo 06/30/24: EF 40 to 45%, biatrial enlargement, severe eccentric MR, moderate TR
Plan:
-Presented w/ SOB, admitted w/ acute heart failure exacerbation. ProBNP on arrival 24,200.
-Diuresed with IV lasix 40mg BID, however has been on hold since 07/03 due to DAVON.
-Weight stable overnight at 136 lbs. Down 8lbs this admission. ProBNP 07/04 >27,000.
-Creat up to 3.0 this AM 07/04. Lasix remains on hold. Nephrology following.
-Notes some ongoing SOB, however feels it is somewhat better than yesterday. SOB could be due to worsening EF, severe MR, or deconditioning.
-EF now down to 40-45% and now severe eccentric MR compared to last echo from 2022.
-Continue Toprol 12.5mg daily. Lisinopril on hold due to DAVON. No SGLT2 inhibitor w/ creat up to 3.0
-Patient not felt to be candidate for ischemic workup at this time and he states he would not be interested in invasive testing or procedures.
-Known permanent atrial fibrillation. HR stable. Continue Eliquis 2.5mg BID for anticoagulation as no procedures planned this admission.
-New bile duct mass and renal mass noted this admission. Continue to follow
-Troponin elevation noted, peaking at 0.085 and trending down thereafter. Managing as nonischemic myocardial injury.
-LDL 102 and outpatient dose of atorvastatin 20 mg daily has been continued.
-DNR code status noted. Continue goals of care discussions.
HPI: He is complicated and he presents feeling very poorly with shortness of breath and symptoms/exam and testing consistent with heart failure previously with normal left ventricular ejection fraction. He has known atrial fibrillation which we
believe currently has been persistent/chronic and he is on oral anticoagulation. He also has significant abdominal discomfort for which he underwent CT scan with a new mass detected chronic bile duct and kidney. He has minimal troponin elevation
which is already started to decrease and more likely secondary to non-[place] troponin elevation given degree of illness. He in addition has chronic renal dysfunction followed by nephrology with worsening BUN noted. COPD/emphysema/bronchiectasis/JOANNE
followed by pulmonary (Dr. Gutierrez). He tells me he feels terrible. Oxygenation is stable.
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
Subjective
Date of Service: July 04, 2024
Feeling about the same. Notes breathing somewhat better than yesterday possibly.
Objective
Labs:
07/04/24 03:22
07/04/24 03:22
Labs
Hgb 10.3 g/dL (13.0-18.0) L 07/04/24 03:22
Hct 31.7 % (39.0-52.0) L 07/04/24 03:22
Plt Count 186 10^3/uL (130-400) 07/04/24 03:22
APTT 34.1 Sec (23.4-35.0) 07/04/24 03:22
Sodium 139 mmol/L (135-145) 07/04/24 03:22
Potassium 4.6 mmol/L (3.5-5.1) 07/04/24 03:22
BUN 102 mg/dl (9-20) H* 07/04/24 03:22
Creatinine 3.0 mg/dL (0.7-1.3) H 07/04/24 03:22
Glucose 131 mg/dl (70-99) H 07/04/24 03:22
Vital Signs and I&O:
Vital Signs
Temp Pulse Resp BP Pulse Ox
97.7 F 74 18 106/74 95
07/04/24 03:26 07/04/24 06:53 07/04/24 03:26 07/04/24 06:53 07/04/24 03:26
Vital Signs
Temp Pulse Resp BP Pulse Ox
97.7 F 74 18 106/74 95
07/04/24 03:26 07/04/24 06:53 07/04/24 03:26 07/04/24 06:53 07/04/24 03:26
Intake & Output
07/02/24 07/03/24 07/04/24 07/05/24
06:59 06:59 06:59 06:59
Intake Total 400 / 400 108 / 108 780 / 780
Output Total 200 / 200 200 / 200 900 / 900
Balance 200 / 200 -92 / -92 -120 / -120
Physical Exam
Physical Exam
GEN: No distress, awake, alert, oriented x3
HEENT: supple, anicteric, mmm
LUNGS: few scattered crackles
CV: irregularly irregular, S1/S2, 2/6 syst murmur
EXT: No clubbing or cyanosis, trace edema b/l LE
NEURO: Gross non-focal
SKIN: Warm, dry, no rash
[2024-07-04 08:13] LABS: Glucose - Point of Care 132 mg/dl (70-99)
[2024-07-04] MEDS: NOVOLOG FLEXPEN-LOW RESISTANCE SC (08:20)
[2024-07-04] MEDS: LIPITOR 20 MG PO (08:50)
[2024-07-04] MEDS: TOPROL XL 12.5 MG PO (08:50)
[2024-07-04] MEDS: FLOMAX 0.4 MG PO (08:50)
[2024-07-04] MEDS: BUSPAR 7.5 MG PO ×2 (08:50→19:51)
[2024-07-04] MEDS: PROTONIX 40 MG PO (08:50)
[2024-07-04] MEDS: ELIQUIS 2.5 MG PO ×2 (08:51→19:51)
[2024-07-04] MEDS: LEXAPRO 20 MG PO (08:51)
[2024-07-04] MEDS: FEOSOL 325 MG PO (08:51)
[2024-07-04] MEDS: MYAMBUTOL 1200 MG PO (08:55)
[2024-07-04] MEDS: ZITHROMAX 500 MG PO (08:55)
--- NOTE | 2024-07-04 10:32 | PTCARENOTE ---
received patient this am in bed sleeping but easily aroused. able to ambulate to BR with walker and assist x 1, had large BM. patient c/o abd. feeling full. very weak. monitor shows Afib, VSS. patient is excited about his nephew visiting today.
--- NOTE | 2024-07-04 11:09 | W.PN.NEPH.PH ---
Today's Communication / Plan
-
Lasix 80 mg IV x 1
Assessment/Plan
-
88 y/o male past medical history of A-fib, CHF, DM, CKD, COPD and JOANNE who presents with shortness of breath. Patient reports increasing shortness of breath over the past few months. He had a Chest CT at an outside facility last week which revealed
a right pleural effusion. Patient also reports significant lower extre
Impression.
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 Creatinine 2.6 on admission with records showing creatinine of 2.3 in 2022
CHF with pleural effusion EF 50% as of 2022 record
Lower extremity edema anasarca
Hypertension
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
Plan.
follow BMP
Daily weights
Independently reviewed chest x-ray no significant pleural effusion
MRI noted.= 2 cm hyperdense cyst of the left kidney no common bile duct mass
Overall patient's severe MR/ CKD overall poor prognosis
I long discussion with the patient and his nephew who is his proxy about the guarded prognosis and worsening renal function.
Patient would not want dialysis and is not a surgical candidate for his MR.
Clinically not improving as discussed with hospitalist agree with pushing diuretics to improve his symptoms with potential improvement in renal function although unlikely.
Will dose Lasix 80 mg x 1.
Patient and nephew interested in at least starting discussions about a palliative care.
-
-
Date of Service: July 04, 2024
CC / HPI / ROS
-
Chief Complaint:
DAVON
History of Present Illness:
DAVON/Cr
Decompensated HFpEF with worsening renal function
BP stable
Abdominal mass negative other than a renal lesion and possible mass
Severe MR
Review of Systems:
no CP
on supplemental O2
Continues to complain of shortness of breath
Labs
-
Labs:
WBC 5.6 10^3/uL (4.8-10.8) 07/04/24 03:22
RBC 3.67 10^6/uL (4.70-6.10) L 07/04/24 03:22
Hgb 10.3 g/dL (13.0-18.0) L 07/04/24 03:22
Hct 31.7 % (39.0-52.0) L 07/04/24 03:22
Plt Count 186 10^3/uL (130-400) 07/04/24 03:22
Sodium 139 mmol/L (135-145) 07/04/24 03:22
Potassium 4.6 mmol/L (3.5-5.1) 07/04/24 03:22
Chloride 100 mmol/L (98-107) 07/04/24 03:22
Carbon Dioxide 28 mmol/L (22-30) 07/04/24 03:22
BUN 102 mg/dl (9-20) H* 07/04/24 03:22
Creatinine 3.0 mg/dL (0.7-1.3) H 07/04/24 03:22
eGFR 19.37 07/04/24 03:22
Glucose 131 mg/dl (70-99) H 07/04/24 03:22
Calcium 9.4 mg/dl (8.4-10.2) 07/04/24 03:22
Xtx-E-Tuwhvobeiwt Pept > 65883 pg/ml 07/04/24 03:22
Albumin 3.5 g/dl (3.5-5.0) 07/04/24 03:22
Physical Exam
-
Vital Signs:
Vital Signs
Temp Pulse Resp BP Pulse Ox
97.6 F 67 18 106/74 95
07/04/24 08:13 07/04/24 10:00 07/04/24 08:13 07/04/24 08:50 07/04/24 08:30
Respiratory:: Bilateral: Coarse and Bilateral: Rhonchi and Right: Rales
Lung Excursion:: Normal
Abdomen:: Distended and Tender
Bowel Sounds:: Normal
Extremity Edema:: None: Bilateral:
[2024-07-04] MEDS: LASIX 80 MG IV (11:22)
[2024-07-04] MEDS: FLUSH (NSS) 1 FLUSH IV (11:27)
--- NOTE | 2024-07-04 11:34 | PTCARENOTE ---
Addendum entered by Ana Stone RN 07/04/24 11:44:
[place] cath #25 on patient due to the amount of IV lasix given.
Original Note:
80 IV lasix given as ordered. renal, cardiology, hospitalist aware of cr 3.0.
[2024-07-04 12:20] LABS: Glucose - Point of Care 208 mg/dl (70-99)
--- NOTE | 2024-07-04 12:49 | HOSPNOTE ---
Patient and nephew discussed hospice and the philosophy. The patient will most likely go back to his [place] apartment with a caregiving agency and hospice. The plan is for the nephew to make some calls over the weekend and hopefully discharge the
patient on Sunday to home. Ativan was ordered PRN for anxiety. The nephews number is [phone] and his name is Rebeca. More information to follow on Sunday. The patient is in agreement with no more diagnostic testing.
[2024-07-04] MEDS: ATIVAN 0.5 MG IV (13:12)
[2024-07-04] MEDS: NSS (PRESERVATIVE FREE) 0.5 ML IV (13:12)
[2024-07-04] MEDS: NOVOLOG FLEXPEN-LOW RESISTANCE 2 UNITS SC ×2 (13:13→17:41)
--- NOTE | 2024-07-04 13:38 | CM ---
Reviewed chart. Met with Mr. Baltazar and his nephew Rebeca to review discharge plans. castro already spoke with [facility]. Nephew spoke with Mali paz and Mr. Baltazar and nephlilliam are thinking about going to the [facility] with [facility]. They are aware of the out of pocket cost for room and board. Sent referral to [facility]. Telephone call to Ella Oliva to update her on his status. She states she will have a bed in the [facility] on Sunday. Sent referral to [facility]. He will need ambulance transportation Medical work-up in progress. The discharge plan is to go to the [facility] with [facility] when medically stable.
--- NOTE | 2024-07-04 13:46 | PTCARENOTE ---
hospice nurse came to see patient and his nephew at bedside, she came out to desk and asked if patient can have Ativan, TT Dr. Henry ordered .5 ativan IV , given as ordered.
--- NOTE | 2024-07-04 14:31 | W.PN.HOSP.TC ---
Today's Communication/Plan
-
80mg iv lasix - monitor outpt
hospice consultation - plan probably for sunday with home hospice
abx
ativan prn
Assessment / Plan
Assessment / Plan
Acute on Chronic HFpEF
-Consult Cardiology
-Continue Lasix 40mg IV BID - holding on Lasix with DAVON although suspect Cardiorenal -given 80mg IV lasix in am to assess response
- Echo - severe MR
-thoracentesis today, f/u Lytes criteria consistent with transudative/chf, Cyto
-Monitor Is&Os and Daily Weights
#Pleural Effusion
-F/u thora labs, cyto
-Repeat cxr - with minimal worsening of rt pleural effusion, doubt able for thora at this time
#Respiratory Distress
component of CHF/ILD/Pleural Effusion +Pneumonia
-thora as above
-pulm consulted
-diuresis
eventual f/u to treat JOANNE�continue azithromycin
-Repeat CXR - ?pneumonia
initiative zosyn, MRSA PCR
-azithromycin
Left lower ext cellulitis
completed cefazolin
-Abx as per above
Weight Loss with Protein Calorie Malnutrition
-Consult Dietary
Right Upper Quadrant Abdominal Tenderness
- Abd/Pelvis CT: Limited by lack of intravenous contrast.
17 mm rounded soft tissue attenuation in the region of the distal common bile duct. The common bile duct is distended, measuring 14 mm. Tiny focus of pneumobilia in the left lobe, which is much less than that seen on the prior study from November
2022. Findings suspicious for obstructing mass or noncalcified choledocholithiasis.
Cholelithiasis with mild hydropic gallbladder. No definitive CT evidence to suggest acute cholecystitis.
-ordered MRCP - equivocal
-Gen Surg consulted
-GI consulted - not optimized at this time for EUS, if does - then can perform EUS as per GI
Permanent Atrial Fibrillation
-Continue Eliquis for anticoagulation
Essential Hypertension
-Hold Lisinopril
Hyperlipidemia
-Continue atorvastatin
Diabetes Mellitus, Type II
-Hold Glipizide
-Check HgbA1c 6.9
-Monitor sugar and continue coverage insulin
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
-Creatinine slightly above baseline with significantly elevated BUN
-Monitor closely while on diuretics
- Use of IV Lasix for CHF cautiously in pt with prerenal azotemia based on BUN to Creat ratio.
-Patient does not want HD
Emphysema / COPD
-Patient does not appear to be on any inhalers as outpatient
JOANNE
-Continue azithromycin and ethambutol
Anxiety / Depression
-Continue escitalopram and temazepam
Hypokalemia
� Monitor and replete
GERD
-Continue Protonix
BPH
-Continue Flomax
DVT proph: Eliquis
Code Status: DNR
Dispo: After discussion with patient, [facility]. patient most likely entering hospice on Sunday. Ativan PRN ordered
Total time spent on today's encounter was 52 minutes which included time spent in counseling the patient/family regarding diagnosis and treatment plan as listed above, goals of care, and symptom management. Case was discussed with nursing staff,
specialists, and care coordinators/case management. All labs and imaging personally reviewed by me. Remainder the time spent in detailed review of previous records, lab data, imaging, and other medical provider documentation.
Anticipated Discharge: > 48 hours
Subjective/Interval History
-
Date of Service: July 04, 2024
still with SOB
Objective Data
-
Labs:
Laboratory Results
07/04/24
03:22
WBC 5.6
Hgb 10.3 L
Hct 31.7 L
Plt Count 186
APTT 34.1
Sodium 139
Potassium 4.6
Chloride 100
Carbon Dioxide 28
BUN 102 H*
Creatinine 3.0 H
Glucose 131 H
Calcium 9.4
Total Bilirubin 1.0
AST 29
ALT < 10
Alkaline Phosphatase 126
Vital Signs:
Vital Signs
Temp Pulse Resp BP Pulse Ox
97.3 F 66 20 92/60 94
07/04/24 12:22 07/04/24 11:22 07/04/24 12:22 07/04/24 11:22 07/04/24 12:22
I&O
07/03/24 07/04/24 07/05/24
06:59 06:59 06:59
Intake Total 108 / 108 780 / 780
Output Total 200 / 200 900 / 900
Balance -92 / -92 -120 / -120
Review of Systems
-
History Source: Patient
All other systems: Not reviewed unless documented
Data Reviewed
-
Diagnostic Radiology: Report Reviewed by me
CT Scan: Report Reviewed by me
MRI: Report Reviewed by me
Labs: Labs Reviewed by me
[2024-07-04 16:35] LABS: Glucose - Point of Care 228 mg/dl (70-99)
[2024-07-04] MEDS: TYLENOL 650 MG PO (19:55)
[2024-07-04 21:53] LABS: Glucose - Point of Care 224 mg/dl (70-99)
[2024-07-04] MEDS: RESTORIL 15 MG PO (21:55)
[2024-07-05] VITALS (7 sets, daily range): BP systolic 97–116; BP diastolic 65–77; BMI 21.6
[2024-07-05 02:25] LABS: Hematocrit 29.8 % (39.0-52.0); Hemoglobin 9.6 g/dL (13.0-18.0); Mean Corp Hgb Conc. 32.2 g/dL (33.0-37.0); Mean Corpuscular Hgb 29.1 pg (27.0-31.0); Mean Corpuscular Volume 90.3 fL (80.0-94.0); Mean Platelet Volume 12.1 fL (7.4-10.4); Platelet Count 160 10^3/uL (130-400); Red Cell Dist. Width 19.9 % (11.5-14.5)
[2024-07-05 02:41] LABS: ALT (SGPT) < 10 U/L (0-50); AST (SGOT) 30 U/L (17-59); Albumin 3.3 g/dl (3.5-5.0); Alkaline Phosphatase 125 U/L (38-126); Blood Urea Nitrogen 109 mg/dl (9-20); Calcium 9.3 mg/dl (8.4-10.2); Carbon Dioxide 27 mmol/L (22-30); Chloride 98 mmol/L (98-107); Estimated Creatinine Clearance 12 ml/min; Glucose 182 mg/dl (70-99); Potassium 4.9 mmol/L (3.5-5.1); Sodium 137 mmol/L (135-145); Total Bilirubin 0.9 mg/dl (0.2-1.3); Total Protein 5.8 g/dl (6.3-8.2); eGFR 15.06
[2024-07-05 08:25] LABS: Glucose - Point of Care 151 mg/dl (70-99)
--- NOTE | 2024-07-05 09:00 | PTCARENOTE ---
recieved pt @ 1227. Pt is AAOx4 Afib on the monitor VSS no cp reported; ambulating to bathroom with standby assist, using call short appropriately; see worklist for detailed assessment
[2024-07-05] MEDS: PROTONIX 40 MG PO (10:20)
[2024-07-05] MEDS: ELIQUIS 2.5 MG PO ×2 (10:20→20:09)
[2024-07-05] MEDS: BUSPAR 7.5 MG PO ×2 (10:20→20:08)
[2024-07-05] MEDS: LIPITOR 20 MG PO (10:20)
[2024-07-05] MEDS: FLOMAX 0.4 MG PO (10:20)
[2024-07-05] MEDS: TOPROL XL 12.5 MG PO (10:20)
[2024-07-05] MEDS: LEXAPRO 20 MG PO (10:21)
[2024-07-05] MEDS: ZOSYN 50 IV ×2 (10:21→17:21)
[2024-07-05] MEDS: FEOSOL 325 MG PO (10:21)
[2024-07-05] MEDS: NOVOLOG FLEXPEN-LOW RESISTANCE 1 UNITS SC (10:22)
--- NOTE | 2024-07-05 12:00 | PTCARENOTE ---
no change from previous assessment
[2024-07-05] MEDS: ATIVAN 0.5 MG IV (12:04)
--- NOTE | 2024-07-05 12:21 | W.PN.NEPH.PH ---
Today's Communication / Plan
-
Hospice
Assessment/Plan
-
88 y/o male past medical history of A-fib, CHF, DM, CKD, COPD and JOANNE who presents with shortness of breath. Patient reports increasing shortness of breath over the past few months. He had a Chest CT at an outside facility last week which revealed
a right pleural effusion. Patient also reports significant lower extre
Impression.
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 Creatinine 2.6 on admission with records showing creatinine of 2.3 in 2022
CHF with pleural effusion EF 50% as of 2022 record
Lower extremity edema anasarca
Hypertension
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
Plan.
For hospice at [facility]
NO FURTHER LABS
Lasix as needed
Would consider nitro for shortness of breath
-
-
Date of Service: July 05, 2024
CC / HPI / ROS
-
Chief Complaint:
DAVON
History of Present Illness:
DAVON/Cr worse at 3.7
Decompensated HFpEF with worsening renal function
BP stable
Severe MR
Review of Systems:
no CP
Currently not wearing supplemental O2
Continues to complain of shortness of breath
Does have episodes of worsening shortness of breath
Feels like something is caught in his esophagus epigastric region
Labs
-
Labs:
WBC 5.0 10^3/uL (4.8-10.8) 07/05/24 02:14
RBC 3.30 10^6/uL (4.70-6.10) L 07/05/24 02:14
Hgb 9.6 g/dL (13.0-18.0) L 07/05/24 02:14
Hct 29.8 % (39.0-52.0) L 07/05/24 02:14
Plt Count 160 10^3/uL (130-400) 07/05/24 02:14
Sodium 137 mmol/L (135-145) 07/05/24 02:14
Potassium 4.9 mmol/L (3.5-5.1) 07/05/24 02:14
Chloride 98 mmol/L (98-107) 07/05/24 02:14
Carbon Dioxide 27 mmol/L (22-30) 07/05/24 02:14
BUN 109 mg/dl (9-20) H* 07/05/24 02:14
Creatinine 3.7 mg/dL (0.7-1.3) H 07/05/24 02:14
eGFR 15.06 07/05/24 02:14
Glucose 182 mg/dl (70-99) H 07/05/24 02:14
Calcium 9.3 mg/dl (8.4-10.2) 07/05/24 02:14
Kpg-S-Crmldpkxogm Pept > 34041 pg/ml 07/04/24 03:22
Albumin 3.3 g/dl (3.5-5.0) L 07/05/24 02:14
Physical Exam
-
Vital Signs:
Vital Signs
Temp Pulse Resp BP Pulse Ox
97.3 F 73 18 113/75 97
07/05/24 08:37 07/05/24 10:00 07/05/24 08:37 07/05/24 08:27 07/05/24 08:37
Cardiovascular:: Regular rate and rhythm
Respiratory:: Bilateral: Coarse
Lung Excursion:: Normal
Abdomen:: Nontender and Soft
Bowel Sounds:: Normal
Extremity Edema:: None: Bilateral:
--- NOTE | 2024-07-05 15:09 | W.PN.HOSP.TC ---
Today's Communication/Plan
-
Dilaudid for sob, symptomatic control
IV lasix to assess improvement in resp symptoms temporarily
home hospice sunday
Assessment / Plan
Assessment / Plan
Acute on Chronic HFpEF
-Consult Cardiology
-Can continue IV lasix for now
- Echo - severe MR
-thoracentesis today, f/u Lytes criteria consistent with transudative/chf, Cyto
-Monitor Is&Os and Daily Weights
#Pleural Effusion
-F/u thora labs, cyto
-Repeat cxr - with minimal worsening of rt pleural effusion, doubt able for thora at this time
#Respiratory Distress
component of CHF/ILD/Pleural Effusion +Pneumonia
-thora as above
-pulm consulted
-diuresis
eventual f/u to treat JOANNE�continue azithromycin
-Repeat CXR - ?pneumonia
initiative zosyn, MRSA PCR
-azithromycin
Left lower ext cellulitis
completed cefazolin
-Abx as per above
Weight Loss with Protein Calorie Malnutrition
-Consult Dietary
Right Upper Quadrant Abdominal Tenderness
- Abd/Pelvis CT: Limited by lack of intravenous contrast.
17 mm rounded soft tissue attenuation in the region of the distal common bile duct. The common bile duct is distended, measuring 14 mm. Tiny focus of pneumobilia in the left lobe, which is much less than that seen on the prior study from November
2022. Findings suspicious for obstructing mass or noncalcified choledocholithiasis.
Cholelithiasis with mild hydropic gallbladder. No definitive CT evidence to suggest acute cholecystitis.
-ordered MRCP - equivocal
-Gen Surg consulted
-GI consulted - not optimized at this time for EUS, if does - then can perform EUS as per GI
Permanent Atrial Fibrillation
-Continue Eliquis for anticoagulation
Essential Hypertension
-Hold Lisinopril
Hyperlipidemia
-Continue atorvastatin
Diabetes Mellitus, Type II
-Hold Glipizide
-Check HgbA1c 6.9
-Monitor sugar and continue coverage insulin
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
-Creatinine slightly above baseline with significantly elevated BUN
-Monitor closely while on diuretics
- Use of IV Lasix for CHF cautiously in pt with prerenal azotemia based on BUN to Creat ratio.
-Patient does not want HD
Emphysema / COPD
-Patient does not appear to be on any inhalers as outpatient
JOANNE
-Continue azithromycin and ethambutol
Anxiety / Depression
-Continue escitalopram and temazepam
Hypokalemia
� Monitor and replete
GERD
-Continue Protonix
BPH
-Continue Flomax
DVT proph: Eliquis
Code Status: DNR
Dispo: After discussion with patient, [facility]. patient most likely entering hospice on Sunday. Ativan PRN ordered
Anticipated Discharge: > 48 hours
Subjective/Interval History
-
Date of Service: July 05, 2024
still with SOB
Objective Data
-
Vital Signs:
Vital Signs
Temp Pulse Resp BP Pulse Ox
97.3 F 73 18 113/75 97
07/05/24 08:37 07/05/24 10:00 07/05/24 08:37 07/05/24 08:27 07/05/24 08:37
I&O
07/04/24 07/05/24 07/06/24
06:59 06:59 06:59
Intake Total 780 / 780 100 / 100
Output Total 900 / 900 200 / 200
Balance -120 / -120 -100 / -100
Review of Systems
-
History Source: Patient
All other systems: Not reviewed unless documented
Data Reviewed
-
Diagnostic Radiology: Report Reviewed by me
CT Scan: Report Reviewed by me
MRI: Report Reviewed by me
Labs: Labs Reviewed by me
[2024-07-05] MEDS: NOVOLOG FLEXPEN-LOW RESISTANCE 4 UNITS SC (15:31)
[2024-07-05 15:32] LABS: Glucose - Point of Care 340 mg/dl (70-99)
[2024-07-05 17:19] LABS: Glucose - Point of Care 269 mg/dl (70-99)
--- NOTE | 2024-07-05 17:30 | PTCARENOTE ---
no change from previous assessment
[2024-07-05] MEDS: LASIX 80 MG IV (18:37)
[2024-07-05] MEDS: NOVOLOG FLEXPEN-LOW RESISTANCE 3 UNITS SC (18:38)
[2024-07-05 21:22] LABS: Glucose - Point of Care 204 mg/dl (70-99)
[2024-07-06] MEDS: ZOSYN 50 IV ×3 (00:46→23:24)
[2024-07-06 02:12] VITALS: BP 124/61
[2024-07-06 02:15] VITALS: BMI 21.9
--- NOTE | 2024-07-06 03:00 | PTCARENOTE ---
Pt. making frequent trips to the bathroom this shift, voiding small amounts brown/kike urine at a time. Bladder scanned post void due to frequency with results of 137 ml. Also had 8 beat run VT quickly followed by 25 beat run at at 2319; VSS,
completely asymptomatic. Hospitalist UNDERCOLLAR BASTER made aware, no new orders.
--- NOTE | 2024-07-06 07:45 | PTCARENOTE ---
Received pt awake and alert sitting in the chair. Weak pedal pulses, denies numbness or tingling of his extremities. Right FA protective catheter flushed and patent. Lungs with right bas fine late inspiratory crackles. PA pulse ox 96%. +BSx4. Fair
appetite. SBD to mid back and sacrum intact. Mid back pink blanchable and sacrum without any reddened areas. He was informed of the plan of care today. He verbalized his understanding. Safe environment maintained. Will continue to monitor.
[2024-07-06 07:49] LABS: Glucose - Point of Care 167 mg/dl (70-99)
[2024-07-06] MEDS: NOVOLOG FLEXPEN-LOW RESISTANCE 1 UNITS SC (07:50)
--- NOTE | 2024-07-06 08:07 | HOSPNOTE ---
Hospice continues to follow and be available. The plan is for patient to return to [facility] with hospice. Nephew and patient were discussing going to independent living with paid caregivers vs [facility]. [facility] will have a bed available
for patient on Sunday. Hospice will be available to admit patient on Sunday once back to [facility].
[2024-07-06 08:13] VITALS: BP 120/74
[2024-07-06] MEDS: TOPROL XL 12.5 MG PO (08:55)
[2024-07-06] MEDS: LEXAPRO 20 MG PO (08:55)
[2024-07-06] MEDS: ELIQUIS 2.5 MG PO ×2 (08:56→19:44)
[2024-07-06] MEDS: FEOSOL 325 MG PO (08:57)
[2024-07-06] MEDS: FLOMAX 0.4 MG PO (08:57)
[2024-07-06] MEDS: LIPITOR 20 MG PO (08:57)
[2024-07-06] MEDS: PROTONIX 40 MG PO (08:57)
--- NOTE | 2024-07-06 10:15 | PTCARENOTE ---
Pt restless and c/o back pain. He stated he fell prior to admission. He was repositioned on his side and air chair cushion was placed under his buttock earlier. Will administer Lorazepam as ordered for anxiety. He stated he was feeling panicked. He
was instructed that if he needs to void he would do so using the urinal and that I did not want him getting OOB. He verbalized his understanding.
[2024-07-06] MEDS: ATIVAN 0.5 MG IV (10:20)
[2024-07-06] MEDS: BUSPAR 7.5 MG PO ×2 (10:20→19:45)
--- NOTE | 2024-07-06 10:41 | PTCARENOTE ---
Spoke with Dr. Henry regarding the plan of care and the administration of Lasix IVP. Will administer as ordered. This was more so for palliative/comfort at this time. Pt informed of the plan of care.
[2024-07-06] MEDS: LASIX 80 MG IV (11:18)
[2024-07-06 11:21] VITALS: BP 110/72
--- NOTE | 2024-07-06 12:49 | PTCARENOTE ---
Assisted to the BR with walker. Unsteady at times. He was incontinent of soft brown BM on the floor. He stated his back is improved.
[2024-07-06 13:03] LABS: Glucose - Point of Care 290 mg/dl (70-99)
[2024-07-06] MEDS: NOVOLOG FLEXPEN-LOW RESISTANCE 3 UNITS SC (13:45)
--- NOTE | 2024-07-06 14:27 | W.PN.HOSP.TC ---
Today's Communication/Plan
-
plan for home hospice tomorrow
can cont abx, lasix for now
ativan prn, dilaudid
Assessment / Plan
Assessment / Plan
Acute on Chronic HFpEF
-Consult Cardiology
-Can continue IV lasix for now
- Echo - severe MR
-thoracentesis today, f/u Lytes criteria consistent with transudative/chf, Cyto
-Monitor Is&Os and Daily Weights
#Pleural Effusion
-F/u thora labs, cyto
-Repeat cxr - with minimal worsening of rt pleural effusion, doubt able for thora at this time
#Respiratory Distress
component of CHF/ILD/Pleural Effusion +Pneumonia
-thora as above
-pulm consulted
-diuresis
eventual f/u to treat JOANNE�continue azithromycin
-Repeat CXR - ?pneumonia
Cont zosyn
-azithromycin
Left lower ext cellulitis
completed cefazolin
-Abx as per above
Weight Loss with Protein Calorie Malnutrition
-Consult Dietary
Right Upper Quadrant Abdominal Tenderness
- Abd/Pelvis CT: Limited by lack of intravenous contrast.
17 mm rounded soft tissue attenuation in the region of the distal common bile duct. The common bile duct is distended, measuring 14 mm. Tiny focus of pneumobilia in the left lobe, which is much less than that seen on the prior study from November
2022. Findings suspicious for obstructing mass or noncalcified choledocholithiasis.
Cholelithiasis with mild hydropic gallbladder. No definitive CT evidence to suggest acute cholecystitis.
-ordered MRCP - equivocal
-Gen Surg consulted
-GI consulted - not optimized at this time for EUS, if does - then can perform EUS as per GI
Permanent Atrial Fibrillation
-Continue Eliquis for anticoagulation
Essential Hypertension
-Hold Lisinopril
Hyperlipidemia
-Continue atorvastatin
Diabetes Mellitus, Type II
-Hold Glipizide
-Check HgbA1c 6.9
-Monitor sugar and continue coverage insulin
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
-Creatinine slightly above baseline with significantly elevated BUN
-Monitor closely while on diuretics
- Use of IV Lasix for CHF cautiously in pt with prerenal azotemia based on BUN to Creat ratio.
-Patient does not want HD
Emphysema / COPD
-Patient does not appear to be on any inhalers as outpatient
JOANNE
-Continue azithromycin and ethambutol
Anxiety / Depression
-Continue escitalopram and temazepam
Hypokalemia
� Monitor and replete
GERD
-Continue Protonix
BPH
-Continue Flomax
DVT proph: Eliquis
Code Status: DNR
Dispo: After discussion with patient, engaged Hospice. patient most likely entering hospice on Sunday. Ativan PRN ordered
Anticipated Discharge: Within 24 hours
Subjective/Interval History
-
Date of Service: July 06, 2024
No acute events overnight
Objective Data
-
Vital Signs:
Vital Signs
Temp Pulse Resp BP Pulse Ox
97.7 F 67 22 110/72 92
07/06/24 11:30 07/06/24 11:18 07/06/24 11:30 07/06/24 11:18 07/06/24 11:30
I&O
07/05/24 07/06/24 07/07/24
06:59 06:59 06:59
Intake Total 100 / 100 530 / 530
Output Total 200 / 200
Balance -100 / -100 530 / 530
Review of Systems
-
History Source: Patient
All other systems: Not reviewed unless documented
Data Reviewed
-
Diagnostic Radiology: Report Reviewed by me
CT Scan: Report Reviewed by me
MRI: Report Reviewed by me
Labs: Labs Reviewed by me
[2024-07-06] MEDS: LASIX IV (15:53)
--- NOTE | 2024-07-06 15:53 | PTCARENOTE ---
Pt called to ambulate to the bathroom. He appears exhausted. He was informed that he was scheduled for more IVP Lasix for comfort. He refused it. He is not sure he wants to continue with the antibiotic at this point. I will give him time to think
this through. Will continue to provide supportive care.
[2024-07-06] MEDS: ZOSYN IV (16:06)
[2024-07-06 16:39] VITALS: BP 108/67
[2024-07-06 17:03] LABS: Glucose - Point of Care 301 mg/dl (70-99)
[2024-07-06] MEDS: NOVOLOG FLEXPEN-LOW RESISTANCE 4 UNITS SC (17:03)
[2024-07-06 18:48] VITALS: BP 107/74
[2024-07-06 21:32] VITALS: BP 106/66
[2024-07-06 21:38] LABS: Glucose - Point of Care 248 mg/dl (70-99)
--- NOTE | 2024-07-06 22:28 | PTCARENOTE ---
Pt rec'd at change of shift awake,alert ate good amount of dinner. OOB to bathroom couple times with staff and walker. gait steady denies feeling dizzy.Afib on telemetry, rate controlled.
[2024-07-07 03:24] VITALS: BP 125/79
[2024-07-07 04:45] VITALS: BMI 22.0
[2024-07-07 06:44] VITALS: BP 118/58
[2024-07-07 06:47] LABS: Glucose - Point of Care 188 mg/dl (70-99)
[2024-07-07 08:03] VITALS: BP 122/74
[2024-07-07 08:04] VITALS: BP 122/74
--- NOTE | 2024-07-07 08:44 | HOSPNOTE ---
Patient will be discharged to the [facility] with hospice. Transport will be scheduled and OOH DNR will be needed on chart. CM aware and will let Attending know of the plan.
[2024-07-07] MEDS: NOVOLOG FLEXPEN-LOW RESISTANCE 1 UNITS SC (09:06)
--- NOTE | 2024-07-07 09:06 | CM ---
Reviewed chart. Telephone call from [facility] Liaison who would like to have transport set-up today at 11:00 a.m. Telephone call to [facility] Grant Liaison to confirm bed available at [facility] today. Updated attending physician regarding discharge plan.
Will need COVID test and OOH DNR form signed. Medical work-up in progress. The discharge plan is to go to the [facility] with [facility] when medically stable.
[2024-07-07] MEDS: ZOSYN 50 IV (09:10)
[2024-07-07] MEDS: TOPROL XL 12.5 MG PO (09:11)
[2024-07-07] MEDS: BUSPAR 7.5 MG PO (09:11)
[2024-07-07] MEDS: LEXAPRO 20 MG PO (09:11)
[2024-07-07] MEDS: PROTONIX 40 MG PO (09:11)
[2024-07-07] MEDS: FLOMAX 0.4 MG PO (09:11)
[2024-07-07] MEDS: ELIQUIS 2.5 MG PO (09:11)
[2024-07-07] MEDS: FEOSOL 325 MG PO (09:12)
[2024-07-07] MEDS: LASIX 80 MG IV (09:12)
[2024-07-07] MEDS: LIPITOR 20 MG PO (09:12)
[2024-07-07] MEDS: FLUSH (NSS) 1 FLUSH IV ×2 (09:14→09:55)
--- NOTE | 2024-07-07 09:16 | W.PN.HOSP.TC ---
Today's Communication/Plan
-
d/c
Assessment / Plan
Assessment / Plan
Gen: NAD, awake and alert, appears chronically ill
Eyes: EOMI, PERRLA, no scleral icterus.
Neck: supple.
CV: Irregularly irregular, +S1/S2, 1/6 systolic murmur
Resp: CTAB anteriorly
Abd: +BS, soft, moderate distention, left-sided tenderness to palpation with guarding
Skin: No rashes.
Neuro: CN 2-12 intact, non-focal.
Psych: Normal mood and affect.
Echo: Normal left ventricular size. Mild concentric left ventricular hypertrophy. Moderately reduced left ventricular systolic function. Hypokinesis of the inferoseptal, inferior and anteroseptal foss. LV ejection fraction is 40-45% by visual
assessment. Biatrial enlargement. Severe eccentric mitral regurgitation. Moderate tricuspid regurgitation. Compared to a prior echo from Mar 2022, which was reviewed, MR and EF are slightly worse.
Acute on Chronic HFmrEF:
-due to severe eccentric MR
-cardiology saw in c/s
-with associated R pleural effusion s/p thoracentesis (transudative)
-despite aggressive measures pt did not improve and is being discharged to hospice at [facility]
CBD distention:
-pt had RUQ TTP
-CT A/P: Limited by lack of intravenous contrast. 17 mm rounded soft tissue attenuation in the region of the distal common bile duct. The common bile duct is distended, measuring 14 mm. Tiny focus of pneumobilia in the left lobe, which is much less
than that seen on the prior study from November 2022. Findings suspicious for obstructing mass or noncalcified choledocholithiasis. Cholelithiasis with mild hydropic gallbladder. No definitive CT evidence to suggest acute cholecystitis.
-MRI abd/MRCP: Examination is limited, with significant respiratory motion artifact. The gallbladder is distended. Posterior dependent layer of decreased T2-weighted signal compatible with gallstones and/or sludge. Suggestion of mild gallbladder
wall thickening and/or pericholecystic edema. Mild to moderate diffuse intrahepatic bile duct dilation. There is dilation of the common bile duct as described. No convincing evidence for bile duct calculus or obstruction by MRI, although evaluation
is limited.
-Pt seen by GS and GI. At that time pt was not optimized for EUS, now leaving on hospice
Other problems:
ILD and COPD with h/o JOANNE: cont azithro. Not on inhalers as outpt
LLE cellulitis: completed a course of abx
Severe protein calorie malnutrition
Permanent Atrial Fibrillation: cont Eliquis/BB
Essential HTN: Cont BB
HLD: cont statin
DM2: a1c 6.9%, SSI/accuchecks
DAVON on CKD3b due to acute HFmrEF, pt did not want HD
Anxiety/Depression: cont Lexapro/Buspar/temazepam
Hypokalemia, resolved
GERD: cont PPI
BPH: cont Flomax
DNR/Eliquis
d/c to hospice
Total time spent on d/c = 37 min. This included today's physical exam, progress note, review of laboratory and diagnostic data, preparation of discharge documents and prescriptions, and discussions about the pt's hospital course and discharge plan
with the patient and other medical manager involved in the patient's care.
Anticipated Discharge: Today
Subjective/Interval History
-
Date of Service: July 07, 2024
Patient reports shortness of breath.
Objective Data
-
Vital Signs:
Vital Signs
Temp Pulse Resp BP Pulse Ox
97.7 F 73 18 122/74 91
07/07/24 08:04 07/07/24 08:04 07/07/24 08:04 07/07/24 08:04 07/07/24 08:04
I&O
07/06/24 07/07/24 07/08/24
06:59 06:59 06:59
Intake Total 820 / 820
Balance 820 / 820
[2024-07-07] MEDS: MYAMBUTOL 1200 MG PO (09:20)
[2024-07-07] MEDS: ZITHROMAX 500 MG PO (09:20)
[2024-07-07 09:32] LABS: COVID-19 Antigen Negative (Negative)
[2024-07-07] MEDS: ATIVAN 0.5 MG IV (09:54)
--- NOTE | 2024-07-07 10:05 | PTCARENOTE ---
received patient sitting up in chair, monitor shows Afib, VSS. patient is very weak. left lower leg dsg. changed, area is open , draining straw colored, adaptic and foam dsg applied. there is also foam dsg. on spine due to patient being so bony and
skinny. patient is very anxious, requested Ativan, Ativan 0.5mg IV given as ordered. patient will be picked up by ambulance today at 12 or 1230 to go to [facility]. nephew at bedside.
[2024-07-07 10:59] VITALS: BP 126/91
--- NOTE | 2024-07-07 11:21 | PTCARENOTE ---
I saw patient was off monitor, ran in room and patient was on the floor , patient has contusion on top of head and slightly bleeding with a bump, patient was helped to his feet with assist of 2, notified Dr. Butts, nephew walked in room, doesnot want
to delay transport to [facility]. Dr. Butts came up to room to see patient. nor further orders at this time. patient will be transferred to [facility] by ambulance.
--- NOTE | 2024-07-07 12:31 | PTCARENOTE ---
Addendum entered by Ana Stone RN 07/07/24 12:52:
report was called to Noy WOODS at [facility].
Original Note:
patient is AAO x 3, doesn't have any complaints. dressed patient. INT D/.C'd, telemetry D/C'd, personal belongings packed and sent with patient. top of head has bump , no bleeding, no c/o nausea, headache, dizziness. acute care ambulance here to
take patient to [facility]. chart given to petrol tanker driver.
[2024-07-07] MEDS: NOVOLOG FLEXPEN-LOW RESISTANCE SC (12:54)
--- NOTE | 2024-07-07 17:19 | W.DCSUMMARY ---
Discharge Summary
Discharge Data
Date of Admission: 06/28/24
Date of Discharge: 07/08/24
-
Pending Results: No
Hospital Course
Primary diagnoses:
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
Acute kidney injury on chronic kidney disease stage IIIb
Severe mitral regurgitation
Left lower extremity cellulitis
Secondary diagnoses:
Interstitial lung disease
Chronic obstructive pulmonary disease
h/o Mycobacterium AVM intracellular RA
Severe protein calorie malnutrition
Permanent Atrial Fibrillation
Essential hypertension
Hyperlipidemia
Type 2 diabetes mellitus
Anxiety
Depression
Hypokalemia
Gastroesophageal reflux disease
Benign prostatic hypertrophy
Consultants:
Cardiology
Pulmonary
Nephrology
Imaging:
Echo: Normal left ventricular size. Mild concentric left ventricular hypertrophy. Moderately reduced left ventricular systolic function. Hypokinesis of the inferoseptal, inferior and anteroseptal foss. LV ejection fraction is 40-45% by visual
assessment. Biatrial enlargement. Severe eccentric mitral regurgitation. Moderate tricuspid regurgitation. Compared to a prior echo from Mar 2022, which was reviewed, MR and EF are slightly worse.
88-year-old male who initially presented with chief complaints of bilateral lower extremity edema and shortness of breath as outlined in the H&P done on admission. Hospital course by problem was:
Acute on Chronic HFmrEF: Patient was placed on IV Lasix on admission. Echocardiogram above. Patient was followed by cardiology. He had an associated R pleural effusion and underwent thoracentesis (transudative). Despite aggressive measures the
patient did not improve and the patient and family decided for the patient to transition to hospice. He was discharged to [facility] on hospice.
Common bile duct distention:The patient complained of right upper quadrant tenderness to palpation. CT A/P: Limited by lack of intravenous contrast. 17 mm rounded soft tissue attenuation in the region of the distal common bile duct. The common bile
duct is distended, measuring 14 mm. Tiny focus of pneumobilia in the left lobe, which is much less than that seen on the prior study from November 2022. Findings suspicious for obstructing mass or noncalcified choledocholithiasis. Cholelithiasis with
mild hydropic gallbladder. No definitive CT evidence to suggest acute cholecystitis. MRI abd/MRCP: Examination is limited, with significant respiratory motion artifact. The gallbladder is distended. Posterior dependent layer of decreased T2-weighted
signal compatible with gallstones and/or sludge. Suggestion of mild gallbladder wall thickening and/or pericholecystic edema. Mild to moderate diffuse intrahepatic bile duct dilation. There is dilation of the common bile duct as described. No
convincing evidence for bile duct calculus or obstruction by MRI, although evaluation is limited. The patient was seen by general surgery and gastroenterology. At the time of their consultations the patient was not optimized for EUS.
LLE cellulitis: The patient completed a course of antibiotics for this while hospitalized.
Discharge Plan
-
Patient Disposition: [facility]/SNF
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
Acute kidney injury on chronic kidney disease stage IIIb
Condition: Fair
Diet: No restrictions
Activity: With assistance
Driving Restrictions: No driving
Other Services: Hospice
Instructions: *PCP/Other Manager State Heart Failure Instructions
Referrals:
Aly Orr MD [Active] - in two to four weeks (May see LOAD OUT PERSON)
Vinny Rosenthal MD [Family Provider] - in less than 1 week
Prescriptions:
Discontinued
atorvastatin 20 mg Tablet
20 mg PO DAILY
temazepam 15 mg Capsule
15 mg PO HS PRN (Reason: sleep)
buspirone 7.5 mg Tablet
7.5 mg PO BID
omeprazole 20 mg Capsule,Delayed Release(Dr/Ec)
20 mg PO DAILY
Eliquis 2.5 mg Tablet
2.5 mg PO BID
escitalopram oxalate 20 mg Tablet
20 mg PO DAILY
furosemide [Lasix] 40 mg Tablet
60 mg PO DAILY
furosemide [Lasix] 40 mg Tablet
40 mg PO QPM
tamsulosin 0.4 mg capsule
0.4 mg PO DAILY
ethambutol 400 mg tablet
1,200 mg PO MOWEFR
ferrous sulfate [iron] 325 mg (65 mg iron) Tablet
325 mg PO DAILY
fluticasone propionate 50 mcg/actuation spray,suspension
2 spray INTRANASAL DAILY
azithromycin 500 mg tablet
500 mg PO MOWEFR
glipizide 5 mg tablet
5 mg PO DAILY
lisinopril 20 mg tablet
20 mg PO DAILY
Discharge Orders:
Discharge Patient (As Directed); Ordered 07/07/24
Ordered By: Aaron Butts
Care Plan Goals
Care Plan Goals:
Problem: Readiness for enhanced knowledge related to diagnosis and treatment plan
Goal: Understand your diagnosis and treatment plan needs, including medications if applicable.
Instructions: Know your diagnosis, underlying causes and treatment plan options, including medications if applicable. Consult with your health care team to learn about your diagnosis and treatment plan, including medications if applicable.
Discharge Date and Time
Discharge Date/Time: 07/07/24 13:04
Print Language: LATVIAN
--- NOTE | 2024-07-08 10:15 | W.HF.CON ---
Heart Failure
- LV Function
Left ventricular function study result: LV Ejection fraction 41-49%
Ejection Fraction Percentage: 40-45
- ARNI
Patient already on ARNI: No
Heart Failure ARNI Not Indicated: LV Ejection Fraction >/= 40%
- ACEI/ARB
Patient already on ACEI/ARB: No
Heart Failure ACEI/ARB Not Indicated: LV Ejection Fraction > 40%
- Beta Sea
Patient already on Evidence Based Beta Sea: No
Heart Failure Evidence Based Beta Sea Not Indicated: LV Ejection Fraction > 40%
- Mineralocorticord Receptor Antagonist
Patient already on MRA: No
Heart Failure MRA Not Indicated: LV Ejection Fraction > 40%
- SGLT-2 Inhibitor
Patient already on SGLT-2 Inhibitor: No
Heart Failure SGLT-2 Inhibitor Contraindication: eGFR < 25, Comfort Measures
- Afib Anticoagulation
Patient already on Anticoagulation for Afib: No
Heart Failure Afib Anticoagulation Contraindication: Comfort Measures Only
- NYHA CHF Classification
NYHA CHF Classification Level: Class IV - Inability to carry out any physical activity
- ACC/AHA Stage
ACC/AHA Stage: Stage D: Advanced Heart Failure
== END 2024-07-07 13:04 | DRG 291 ==
LOC: IVU 19:30
PROVIDERS: Internal Medicine; Internal Medicine Cardiovascular Disease; Physician Assistant Medical; Radiology Vascular & Interventional Radiology; ADMITTING PHYSICIAN Hospitalist; ATTENDING PHYSICIAN Internal Medicine; CONSULT PHYSICIAN Internal Medicine Cardiovascular Disease; CONSULT PHYSICIAN Internal Medicine Critical Care Medicine; CONSULT PHYSICIAN Internal Medicine Gastroenterology; CONSULT PHYSICIAN Internal Medicine Nephrology; CONSULT PHYSICIAN Surgery; EMERGENCY PHYSICIAN Emergency Medicine; FAMILY PHYSICIAN Internal Medicine
PROC: 0W993ZZ Drainage of Right Pleural Cavity, Percutaneous Approach (ICD-10-PCS; 2024-06-30)
DX: I13.0 Hypertensive heart and chronic kidney disease with heart failure and stage 1 through stage 4 chronic kidney disease, or unspecified chronic kidney disease (principal); E43 Unspecified severe protein-calorie malnutrition; J18.9 Pneumonia, unspecified organism; I50.43 Acute on chronic combined systolic (congestive) and diastolic (congestive) heart failure; I48.19 Other persistent atrial fibrillation; L03.116 Cellulitis of left lower limb; N17.9 Acute kidney failure, unspecified; N18.4 Chronic kidney disease, stage 4 (severe); J84.9 Interstitial pulmonary disease, unspecified; I47.20 Ventricular tachycardia, unspecified; J90 Pleural effusion, not elsewhere classified; E11.22 Type 2 diabetes mellitus with diabetic chronic kidney disease; K21.9 Gastro-esophageal reflux disease without esophagitis; E87.6 Hypokalemia; F32.A Depression, unspecified; F41.9 Anxiety disorder, unspecified; I34.0 Nonrheumatic mitral (valve) insufficiency; I5A Non-ischemic myocardial injury (non-traumatic); Z66 Do not resuscitate; Z68.22 Body mass index [BMI] 22.0-22.9, adult; Z79.01 Long term (current) use of anticoagulants; Z79.84 Long term (current) use of oral hypoglycemic drugs
CPT/HCPCS: 88305; 32555; 71045; 71046; 74176; 74183; 80048; 80053; 80061; 82150; 82607; 82728; 82746; 82945; 82962; 83036; 83540; 83550; 83615; 83735; 83880; 83986; 84157; 84443; 84478; 84484; 85025; 85027; 85730; 87015; 87070; 87102; 87116; 87205; 87641; 87811; 88112; 89051; 93005; 93306; 96374; 99285; A9575